=== PATIENT | male | born 1945 | race Two or more races ===

== ENCOUNTER → 2016-11-26 | Outpatient (CLI) | payer OTHER, MEDICAID ==
[~2016-11-26] MED LIST: ASPI81TA27 PO; CLON0.3T PO; CLOP75TA28 PO; FEXO24TA9 PO; FLUT110A IN; FLUT250M2 INH; FOLI800T14 OR; GABA300C8 OR; INSLANTI SC; LACT10SO PO; MAGN400T5 PO; MESA800T OR; METF500T OR; METH25IN14 IJ; MONT10TA23 OR; NOR10T PO; PANT1INJ3 OR; POTA-167 OR; ROSU10TA16 PO; TRAM-297 OR; TRI05TP INJ
[2016-11-26 12:09] LABS: INR 0.97 (0.9-1.15); Partial Thromboplastin Time 24.9 sec (22.64-33.71)
[2016-11-26 12:10] LABS: Basophils # (auto) 0.2 uL; Basophils % (auto) 2.2 % (0.0-2.0); Eosinophils # (auto) 0 uL; Eosinophils % (auto) 0.2 % (0.0-7.0); Hematocrit 40.3 % (41.0-53.0); Hemoglobin 12.6 g/dL (13.5-17.5); Lymphocytes % (auto) 19.7 % (10.0-50.0); Mean Corpuscular Hemoglobin 27.5 pg (28.0-32.0); Mean Corpuscular Hgb Conc. 31.1 g/dL (32.0-36.0); Mean Corpuscular Volume 88.2 fL (80.0-100.0); Mean Platelet Volume 6.3 fL (7.4-10.4); Monocytes # (auto) 0.8 uL; Monocytes % (auto) 7.6 % (0.0-12.0); Neutrophils # (auto) 7.3 uL; Neutrophils % (auto) 70.3 % (37.0-80.0); Platelet Count (auto) 385 10^3/uL (140-450); Red Cell Distribution Width 14.5 % (11.6-16.0); White Blood Cell 10.3 10^3/uL (4.4-10.8)
[2016-11-26 12:14] LABS: Albumin 3.8 g/dL (3.4-5.0); BUN/Creatinine Ratio 13.2; Calcium 8.1 mg/dL (8.5-10.1); Potassium 4.1 mmol/L (3.5-5.1)
[2016-11-26 12:16] LABS: Bilirubin, Total 0.5 mg/dL (0.2-1.0); Total Protein 6.5 g/dL (6.4-8.2)
[2016-11-26 13:08] LABS: Urine Bilirubin Negative (Negative); Urine Blood Negative /uL (Negative); Urine Color Colorless (Yellow); Urine Glucose Normal (Normal); Urine Ketone Negative (Negative); Urine Nitrite Negative (Negative); Urine RBC <1 /hpf (0 - 3); Urine Urobilinogen Normal (Negative); Urine pH 6.5 (5.0-8.0)
== END | disposition home or self-care (01) ==
LOC: LAB 11:18
PROVIDERS: ATTEND Internal Medicine Gastroenterology
DX: Z01.812 Encounter for preprocedural laboratory examination (principal)
CPT/HCPCS: 36415; 80053; 81001; 85025; 85610; 85730

== ENCOUNTER → 2016-11-30 | Day surgery (SDC) | payer OTHER, MEDICAID ==
[~2016-11-30] MED LIST changes: +ACCU-CHEK COMFORT CURVE STRIP VI ONE; +DEXAMETHASONE SOD PHOS 10MG/1ML VIAL INJ ONE; +HYDROmorphone HCL 2 MG/ML VL IV PRN; +MIDAZOLAM HCL 1MG/1ML-2 ML VIAL IV PRN; +MIDAZOLAM HCL 1MG/1ML-2 ML VIAL ONE; +MORPHINE SULF INJ 2 MG/ML SYRINGE 1ML IV PRN; +ONDANSETRON HCL 4 MG/2 ML VIAL IV ONE; +PROPOFOL 10 MG/ML 20 ML IV ONE; +ePHEDrine SULFATE 50 MG/ML AMP IV PRN; +fentaNYL CITRATE 100 MCG/2 ML VL ONE; +hydrALAZINE HCL 20 MG/ML VL IV PRN
[2016-11-30 10:50] VITALS: BP 133/67
== END | disposition home or self-care (01) ==
LOC: GI 07:52
PROVIDERS: ATTEND Internal Medicine Gastroenterology
DX: Z12.11 Encounter for screening for malignant neoplasm of colon (principal); K64.8 Other hemorrhoids; K51.90 Ulcerative colitis, unspecified, without complications; I20.9 Angina pectoris, unspecified; I50.9 Heart failure, unspecified; J44.9 Chronic obstructive pulmonary disease, unspecified; J45.909 Unspecified asthma, uncomplicated; E11.9 Type 2 diabetes mellitus without complications; F17.200 Nicotine dependence, unspecified, uncomplicated
CPT/HCPCS: 45380; 82962; J1100; J2250; J2704

== ENCOUNTER → 2016-12-02 | Outpatient (CLI) | payer OTHER, MEDICAID ==
[~2016-12-02] MED LIST changes: -ACCU-CHEK COMFORT CURVE STRIP VI ONE; -DEXAMETHASONE SOD PHOS 10MG/1ML VIAL INJ ONE; -HYDROmorphone HCL 2 MG/ML VL IV PRN; -MIDAZOLAM HCL 1MG/1ML-2 ML VIAL IV PRN; -MIDAZOLAM HCL 1MG/1ML-2 ML VIAL ONE; -MORPHINE SULF INJ 2 MG/ML SYRINGE 1ML IV PRN; -ONDANSETRON HCL 4 MG/2 ML VIAL IV ONE; -PROPOFOL 10 MG/ML 20 ML IV ONE; -ePHEDrine SULFATE 50 MG/ML AMP IV PRN; -fentaNYL CITRATE 100 MCG/2 ML VL ONE; -hydrALAZINE HCL 20 MG/ML VL IV PRN
[2016-12-02 11:46] LABS: Basophils # (auto) 0 uL; Basophils % (auto) 0.4 % (0.0-2.0); Eosinophils # (auto) 0 uL; Eosinophils % (auto) 0.3 % (0.0-7.0); Hematocrit 37.8 % (41.0-53.0); Hemoglobin 11.6 g/dL (13.5-17.5); Lymphocytes # (auto) 2.3 uL; Lymphocytes % (auto) 24.1 % (10.0-50.0); Mean Corpuscular Hemoglobin 27.2 pg (28.0-32.0); Mean Corpuscular Hgb Conc. 30.8 g/dL (32.0-36.0); Mean Corpuscular Volume 88.3 fL (80.0-100.0); Mean Platelet Volume 5.9 fL (7.4-10.4); Monocytes # (auto) 0.8 uL; Monocytes % (auto) 8.3 % (0.0-12.0); Neutrophils # (auto) 6.5 uL; Neutrophils % (auto) 66.9 % (37.0-80.0); Platelet Count (auto) 366 10^3/uL (140-450); Red Cell Distribution Width 15.2 % (11.6-16.0); White Blood Cell 9.7 10^3/uL (4.4-10.8)
== END | disposition home or self-care (01) ==
LOC: LAB 10:25
PROVIDERS: ATTEND Internal Medicine Gastroenterology
DX: R53.1 Weakness (principal); K62.5 Hemorrhage of anus and rectum
CPT/HCPCS: 36415; 85025

== ENCOUNTER → 2017-01-11 | Outpatient (CLI) | payer OTHER, MEDICAID ==
[2017-01-11 11:34] LABS: Basophils # (auto) 0.1 uL; Basophils % (auto) 0.7 % (0.0-2.0); Eosinophils # (auto) 0 uL; Eosinophils % (auto) 0.4 % (0.0-7.0); Hematocrit 35.3 % (41.0-53.0); Hemoglobin 11.3 g/dL (13.5-17.5); Lymphocytes # (auto) 2.1 uL; Lymphocytes % (auto) 25.1 % (10.0-50.0); Mean Corpuscular Hgb Conc. 32.1 g/dL (32.0-36.0); Mean Corpuscular Volume 87.4 fL (80.0-100.0); Mean Platelet Volume 5.9 fL (7.4-10.4); Monocytes # (auto) 0.7 uL; Monocytes % (auto) 8.6 % (0.0-12.0); Neutrophils # (auto) 5.4 uL; Neutrophils % (auto) 65.2 % (37.0-80.0); Platelet Count (auto) 415 10^3/uL (140-450); Red Cell Distribution Width 16.6 % (11.6-16.0); White Blood Cell 8.2 10^3/uL (4.4-10.8)
[2017-01-11 11:56] LABS: Vitamin B12 865 pg/mL (211-911)
[2017-01-11 12:32] LABS: Albumin 3.9 g/dL (3.4-5.0); BUN/Creatinine Ratio 16.1; Bilirubin, Total 0.4 mg/dL (0.2-1.0); Calcium 9.1 mg/dL (8.5-10.1); Potassium 4.5 mmol/L (3.5-5.1); Total Protein 6.6 g/dL (6.4-8.2)
[2017-01-11 13:06] LABS: Temperature: 21.9 C (20.0-25.0)
== END | disposition home or self-care (01) ==
LOC: LAB 10:59
PROVIDERS: ATTEND Internal Medicine
DX: D64.9 Anemia, unspecified (principal); M06.9 Rheumatoid arthritis, unspecified; M25.50 Pain in unspecified joint; I10 Essential (primary) hypertension; Z79.899 Other long term (current) drug therapy
CPT/HCPCS: 36415; 80053; 82607; 82728; 82746; 83540; 83550; 85025; 85652; 86141

== ENCOUNTER → 2017-03-22 | Outpatient (CLI) | payer OTHER, MEDICAID ==
[2017-03-22 10:04] LABS: Basophils # (auto) 0.1 uL; Basophils % (auto) 1.1 % (0.0-2.0); DEFINITIVE VIEW TRANSMISSION; Eosinophils # (auto) 0 uL; Eosinophils % (auto) 0.3 % (0.0-7.0); Hematocrit 40.4 % (41.0-53.0); Hemoglobin 13.2 g/dL (13.5-17.5); Lymphocytes % (auto) 24.3 % (10.0-50.0); Mean Corpuscular Hemoglobin 29.3 pg (28.0-32.0); Mean Corpuscular Hgb Conc. 32.7 g/dL (32.0-36.0); Mean Corpuscular Volume 89.6 fL (80.0-100.0); Mean Platelet Volume 5.9 fL (7.4-10.4); Monocytes # (auto) 0.7 uL; Monocytes % (auto) 8.3 % (0.0-12.0); Neutrophils # (auto) 5.4 uL; Platelet Count (auto) 406 10^3/uL (140-450); White Blood Cell 8.2 10^3/uL (4.4-10.8)
[2017-03-22 10:27] LABS: Potassium 4.2 mmol/L (3.5-5.1)
[2017-03-22 10:28] LABS: Albumin 3.9 g/dL (3.4-5.0); BUN/Creatinine Ratio 14.3; Bilirubin, Total 0.3 mg/dL (0.2-1.0); Calcium 8.8 mg/dL (8.5-10.1); Total Protein 6.9 g/dL (6.4-8.2)
== END | disposition home or self-care (01) ==
LOC: LAB 09:27
DX: Z79.899 Other long term (current) drug therapy (principal); M06.9 Rheumatoid arthritis, unspecified; M25.50 Pain in unspecified joint; D64.9 Anemia, unspecified; I10 Essential (primary) hypertension
CPT/HCPCS: 36415; 80053; 82728; 83540; 85025; 85652; 86141

== ENCOUNTER 2017-05-01 19:29 | Emergency (ER) | payer OTHER, MEDICAID ==
[~2017-05-01] VITALS: Ht 157.5 cm; Wt 57.2 kg
[~2017-05-01 19:29] MED LIST changes: +ASACOL HD800 MG OR; +GABA-497 OR; -GABA300C8 OR; -LACT10SO PO; +LACT10SO3 PO; -MESA800T OR
[2017-05-01 20:42] LABS: Basophils # (auto) 0 uL; Basophils % (auto) 0.7 % (0.0-2.0); CONDITION Y; DEFINITIVE SEE PRINTOUT; Eosinophils # (auto) 0 uL; Eosinophils % (auto) 0.4 % (0.0-7.0); Hematocrit 38.5 % (41.0-53.0); Hemoglobin 12.6 g/dL (13.5-17.5); Lymphocytes # (auto) 1.8 uL; Lymphocytes % (auto) 25.7 % (10.0-50.0); Mean Corpuscular Hemoglobin 31.1 pg (28.0-32.0); Mean Corpuscular Hgb Conc. 32.8 g/dL (32.0-36.0); Mean Platelet Volume 5.7 fL (7.4-10.4); Monocytes # (auto) 0.6 uL; Monocytes % (auto) 9.1 % (0.0-12.0); Neutrophils # (auto) 4.6 uL; Neutrophils % (auto) 64.1 % (37.0-80.0); Platelet Count (auto) 366 10^3/uL (140-450); Red Cell Distribution Width 19.9 % (11.6-16.0); White Blood Cell 7.1 10^3/uL (4.4-10.8)
[2017-05-01 21:08] LABS: INR 0.89 (0.9-1.15); Partial Thromboplastin Time 27.1 sec (22.64-33.71); Prothrombin Time 9.7 sec (9.37-12.3)
[2017-05-01 21:20] LABS: Albumin 3.7 g/dL (3.4-5.0); BUN/Creatinine Ratio 15.3; Calcium 8.5 mg/dL (8.5-10.1); Potassium 4.3 mmol/L (3.5-5.1)
[2017-05-01 21:23] LABS: Bilirubin, Total 0.3 mg/dL (0.2-1.0); Total Protein 6.3 g/dL (6.4-8.2)
[2017-05-01 21:51] LABS: Anisocytosis Slight; Burr Cells FEW; Platelet Estimate Adequate
[2017-05-01 21:52] LABS: Ovalocytes FEW
[2017-05-01 23:02] LABS: B-Type Natriuretic Peptide 39.27 pg/mL (0-100)
[2017-05-02] MEDS ORDERED: HYDROcodone-ACET 5/325MG TAB PO ONE (00:15)
[2017-05-02 01:00] VITALS: BP 132/68
== END 2017-05-02 01:15 ==
LOC: ER 19:31
DX: R58 Hemorrhage, not elsewhere classified (principal); M79.604 Pain in right leg; M79.672 Pain in left foot; E11.40 Type 2 diabetes mellitus with diabetic neuropathy, unspecified; I10 Essential (primary) hypertension; E78.00 Pure hypercholesterolemia, unspecified; I25.10 Atherosclerotic heart disease of native coronary artery without angina pectoris; J44.9 Chronic obstructive pulmonary disease, unspecified; K21.9 Gastro-esophageal reflux disease without esophagitis; K51.90 Ulcerative colitis, unspecified, without complications; M06.9 Rheumatoid arthritis, unspecified; I25.2 Old myocardial infarction; F41.9 Anxiety disorder, unspecified; Z86.718 Personal history of other venous thrombosis and embolism; Z86.73 Personal history of transient ischemic attack (TIA), and cerebral infarction without residual deficits; Z88.0 Allergy status to penicillin; Z88.1 Allergy status to other antibiotic agents; Z88.6 Allergy status to analgesic agent; Z88.8 Allergy status to other drugs, medicaments and biological substances
CPT/HCPCS: 36415; 80053; 82962; 83880; 85025; 85610; 85730; 93005; 93971

== ENCOUNTER → 2017-05-03 | Outpatient (CLI) | payer OTHER, MEDICAID | END | disposition home or self-care (01) | LOC: LAB 09:32 | PROVIDERS: ATTEND Internal Medicine | DX: R63.4 Abnormal weight loss (principal) | CPT/HCPCS: 36415; 82565; 84520 ==

== ENCOUNTER 2017-05-07 13:34 | Emergency (ER) | payer OTHER, MEDICAID ==
[~2017-05-07] VITALS: Ht 157.5 cm; Wt 56.2 kg
[2017-05-07 14:22] LABS: Basophils # (auto) 0 uL; Basophils % (auto) 0.5 % (0.0-2.0); CONDITION Y; DEFINITIVE SEE PRINTOUT; Eosinophils # (auto) 0 uL; Eosinophils % (auto) 0.4 % (0.0-7.0); Hematocrit 39.5 % (41.0-53.0); Lymphocytes # (auto) 1.8 uL; Lymphocytes % (auto) 19.7 % (10.0-50.0); Mean Corpuscular Hemoglobin 31.4 pg (28.0-32.0); Mean Corpuscular Hgb Conc. 32.9 g/dL (32.0-36.0); Mean Corpuscular Volume 95.4 fL (80.0-100.0); Mean Platelet Volume 6.1 fL (7.4-10.4); Monocytes # (auto) 0.7 uL; Neutrophils # (auto) 6.7 uL; Neutrophils % (auto) 71.4 % (37.0-80.0); Platelet Count (auto) 377 10^3/uL (140-450); Red Cell Distribution Width 19.6 % (11.6-16.0); White Blood Cell 9.4 10^3/uL (4.4-10.8)
[2017-05-07 16:20] LABS: Potassium 4.1 mmol/L (3.5-5.1)
[2017-05-07 16:21] LABS: Albumin 3.6 g/dL (3.4-5.0); BUN/Creatinine Ratio 14.8; Bilirubin, Total 0.4 mg/dL (0.2-1.0); Calcium 8.5 mg/dL (8.5-10.1); Total Protein 6.2 g/dL (6.4-8.2)
[2017-05-07] MEDS ORDERED: ONDANSETRON HCL 4 MG/2 ML VIAL IM ONE (18:15)
[2017-05-07] MEDS ORDERED: HYDROmorphone HCL 2 MG/ML VL IM ONE (18:15)
[2017-05-07 20:00] VITALS: BP 152/78
== END 2017-05-07 20:11 | disposition home or self-care (01) ==
LOC: ER 13:34
DX: S90.31XA Contusion of right foot, initial encounter (principal); M06.9 Rheumatoid arthritis, unspecified; E11.42 Type 2 diabetes mellitus with diabetic polyneuropathy; M19.90 Unspecified osteoarthritis, unspecified site; J44.9 Chronic obstructive pulmonary disease, unspecified; K21.9 Gastro-esophageal reflux disease without esophagitis; E78.5 Hyperlipidemia, unspecified; I10 Essential (primary) hypertension; E78.00 Pure hypercholesterolemia, unspecified; F17.210 Nicotine dependence, cigarettes, uncomplicated; I25.2 Old myocardial infarction; Z98.61 Coronary angioplasty status; Z90.49 Acquired absence of other specified parts of digestive tract; Z88.8 Allergy status to other drugs, medicaments and biological substances; Z88.1 Allergy status to other antibiotic agents; Z88.6 Allergy status to analgesic agent; Z79.4 Long term (current) use of insulin; X58.XXXA Exposure to other specified factors, initial encounter; Y93.89 Activity, other specified; Y92.89 Other specified places as the place of occurrence of the external cause; Y99.8 Other external cause status
CPT/HCPCS: 36415; 73590; 73610; 73630; 80053; 82962; 84550; 85025; 85379; 93971; 96372; 99285; J1170; J2405

== ENCOUNTER → 2017-05-17 | Outpatient (CLI) | payer OTHER, MEDICAID | END | disposition home or self-care (01) | LOC: XY 09:57 | PROVIDERS: ATTEND Internal Medicine | DX: M79.604 Pain in right leg (principal); M79.601 Pain in right arm; I10 Essential (primary) hypertension; E11.9 Type 2 diabetes mellitus without complications | CPT/HCPCS: 93926 ==

== ENCOUNTER → 2017-07-06 | Outpatient (CLI) | payer OTHER ==
[2017-07-06 11:33] LABS: Basophils # (auto) 0.1 uL; Basophils % (auto) 0.7 % (0.0-2.0); CONDITION Y; Eosinophils # (auto) 0.1 uL; Eosinophils % (auto) 0.6 % (0.0-7.0); Hematocrit 39.8 % (41.0-53.0); Hemoglobin 13.3 g/dL (13.5-17.5); Lymphocytes # (auto) 1.9 uL; Lymphocytes % (auto) 22.3 % (10.0-50.0); Mean Corpuscular Hemoglobin 33.5 pg (28.0-32.0); Mean Corpuscular Hgb Conc. 33.4 g/dL (32.0-36.0); Mean Corpuscular Volume 100.3 fL (80.0-100.0); Mean Platelet Volume 5.6 fL (7.4-10.4); Monocytes # (auto) 0.8 uL; Monocytes % (auto) 9.1 % (0.0-12.0); Neutrophils # (auto) 5.9 uL; Neutrophils % (auto) 67.3 % (37.0-80.0); Platelet Count (auto) 364 10^3/uL (140-450); Red Cell Distribution Width 15.6 % (11.6-16.0); White Blood Cell 8.7 10^3/uL (4.4-10.8)
[2017-07-06 11:55] LABS: Albumin 3.8 g/dL (3.4-5.0); BUN/Creatinine Ratio 17.2; Bilirubin, Total 0.4 mg/dL (0.2-1.0); Calcium 9.1 mg/dL (8.5-10.1); Potassium 4.6 mmol/L (3.5-5.1); Total Protein 6.8 g/dL (6.4-8.2)
== END | disposition home or self-care (01) ==
LOC: LAB 11:06
DX: I10 Essential (primary) hypertension (principal); D64.9 Anemia, unspecified; M25.50 Pain in unspecified joint; E03.9 Hypothyroidism, unspecified; E11.9 Type 2 diabetes mellitus without complications; Z79.899 Other long term (current) drug therapy; J44.9 Chronic obstructive pulmonary disease, unspecified
CPT/HCPCS: 36415; 80053; 84443; 85025; 85652; 86141

== ENCOUNTER 2017-09-06 12:32 | Emergency (ER) | payer OTHER, MEDICAID ==
[~2017-09-06] VITALS: Ht 157.5 cm; Wt 55.3 kg
[~2017-09-06 12:32] MED LIST changes: -ASACOL HD800 MG OR; +MESA800T OR; +SITA50TA PO
[2017-09-06 13:31] LABS: Basophils # (auto) 0.1 uL; Basophils % (auto) 1.2 % (0.0-2.0); Eosinophils # (auto) 0.1 uL; Eosinophils % (auto) 1.3 % (0.0-7.0); Hematocrit 39.4 % (41.0-53.0); Hemoglobin 13.2 g/dL (13.5-17.5); Lymphocytes # (auto) 1.3 uL; Lymphocytes % (auto) 15.7 % (10.0-50.0); Mean Corpuscular Hemoglobin 33.2 pg (28.0-32.0); Mean Corpuscular Hgb Conc. 33.4 g/dL (32.0-36.0); Mean Corpuscular Volume 99.4 fL (80.0-100.0); Monocytes # (auto) 0.9 uL; Neutrophils # (auto) 5.9 uL; Neutrophils % (auto) 70.8 % (37.0-80.0); Platelet Count (auto) 271 10^3/uL (140-450); Red Blood Cells 3.96 10^6/uL (4.5-5.90); Red Cell Distribution Width 13.7 % (11.8-14.3); White Blood Cell 8.4 10^3/uL (4.4-10.8)
[2017-09-06 13:40] LABS: Amylase 24 U/L (25-115); Lipase 110 U/L (73-393)
[2017-09-06 13:44] LABS: Albumin 3.6 g/dL (3.4-5.0); BUN/Creatinine Ratio 16.7; Bilirubin, Total 0.4 mg/dL (0.2-1.0); Calcium 8.7 mg/dL (8.5-10.1); Potassium 4.2 mmol/L (3.5-5.1); Total Protein 6.8 g/dL (6.4-8.2)
[2017-09-06] MEDS ORDERED: traMADol HCL 50 MG TAB PO ONE (14:00)
[2017-09-06 15:32] VITALS: BP 141/69
== END 2017-09-06 16:03 | disposition home or self-care (01) ==
LOC: ER 12:32
DX: K59.00 Constipation, unspecified (principal); F17.210 Nicotine dependence, cigarettes, uncomplicated; M19.90 Unspecified osteoarthritis, unspecified site; J44.9 Chronic obstructive pulmonary disease, unspecified; K21.9 Gastro-esophageal reflux disease without esophagitis; E78.5 Hyperlipidemia, unspecified; I10 Essential (primary) hypertension; I25.2 Old myocardial infarction; E11.40 Type 2 diabetes mellitus with diabetic neuropathy, unspecified; Z90.89 Acquired absence of other organs; Z98.61 Coronary angioplasty status; Z79.899 Other long term (current) drug therapy; Z88.8 Allergy status to other drugs, medicaments and biological substances; Z88.6 Allergy status to analgesic agent; Z88.1 Allergy status to other antibiotic agents
CPT/HCPCS: 36415; 74176; 80053; 82150; 83690; 85025; 93005

== ENCOUNTER → 2017-11-04 | Outpatient (CLI) | payer OTHER, MEDICAID ==
[~2017-11-04] VITALS: Ht 157.5 cm; Wt 53.5 kg
[~2017-11-04] MED LIST changes: +FURO40TA PO; -GABA-497 OR; +GABA300C10 OR; +LEVO750T64 PO
[2017-11-04 11:54] LABS: Basophils # (auto) 0.1 uL; Basophils % (auto) 0.6 % (0.0-2.0); Eosinophils # (auto) 0 uL; Eosinophils % (auto) 0.2 % (0.0-7.0); Hematocrit 38.9 % (41.0-53.0); Hemoglobin 12.8 g/dL (13.5-17.5); Lymphocytes # (auto) 1.4 uL; Lymphocytes % (auto) 15.1 % (10.0-50.0); Mean Corpuscular Volume 97.2 fL (80.0-100.0); Monocytes # (auto) 0.8 uL; Monocytes % (auto) 9.2 % (0.0-12.0); Neutrophils # (auto) 6.9 uL; Neutrophils % (auto) 74.9 % (37.0-80.0); Platelet Count (auto) 350 10^3/uL (140-450); Red Cell Distribution Width 14.1 % (11.8-14.3); White Blood Cell 9.2 10^3/uL (4.4-10.8)
[2017-11-04 11:57] LABS: Urine Blood Negative /uL (Negative); Urine Specific Gravity 1.003 (1.001-1.035)
[2017-11-04 12:07] LABS: INR 0.88 (0.9-1.15); Partial Thromboplastin Time 26.5 sec (22.64-33.71); Prothrombin Time 9.6 sec (9.37-12.3)
[2017-11-04 12:24] LABS: Albumin 3.9 g/dL (3.4-5.0); BUN/Creatinine Ratio 19.4; Bilirubin, Total 0.4 mg/dL (0.2-1.0); Calcium 8.7 mg/dL (8.5-10.1); Potassium 4.3 mmol/L (3.5-5.1); Total Protein 6.9 g/dL (6.4-8.2)
== END | disposition home or self-care (01) ==
LOC: LAB 08:00 → EDSTATUS 11-08 09:00
PROVIDERS: ATTEND Internal Medicine Gastroenterology
DX: K51.90 Ulcerative colitis, unspecified, without complications (principal); R63.4 Abnormal weight loss
CPT/HCPCS: 36415; 80053; 81003; 85025; 85610; 85730

== ENCOUNTER 2017-11-07 14:07 | Inpatient (IN) | payer OTHER, MEDICAID ==
[~2017-11-07] VITALS: Ht 157.5 cm; Wt 51.8 kg
[~2017-11-07 14:07] MED LIST changes: -FURO40TA PO; -INSLANTI SC; -LEVO750T64 PO
[2017-11-07 14:41] LABS: Basophils # (auto) 0 uL; Basophils % (auto) 0.3 % (0.0-2.0); Eosinophils # (auto) 0 uL; Eosinophils % (auto) 0.3 % (0.0-7.0); Hematocrit 34.7 % (41.0-53.0); Hemoglobin 11.6 g/dL (13.5-17.5); Lymphocytes # (auto) 0.8 uL; Lymphocytes % (auto) 7.3 % (10.0-50.0); Mean Corpuscular Hemoglobin 32.5 pg (28.0-32.0); Mean Corpuscular Hgb Conc. 33.5 g/dL (32.0-36.0); Mean Corpuscular Volume 97.1 fL (80.0-100.0); Monocytes # (auto) 0.9 uL; Monocytes % (auto) 7.7 % (0.0-12.0); Neutrophils # (auto) 9.8 uL; Neutrophils % (auto) 84.4 % (37.0-80.0); Platelet Count (auto) 280 10^3/uL (140-450); Red Blood Cells 3.57 10^6/uL (4.5-5.90); Red Cell Distribution Width 14.6 % (11.8-14.3); White Blood Cell 11.6 10^3/uL (4.4-10.8)
[2017-11-07 15:01] LABS: Alanine Aminotransferase 45 U/L (16-61); Alkaline Phosphatase 116 U/L (45-117); Anion Gap 8 (5-15); Aspartate Aminotransferase 26 U/L (15-37); BUN/Creatinine Ratio 15.8; Bilirubin, Total 0.6 mg/dL (0.2-1.0); Blood Urea Nitrogen 12 mg/dL (7-18); Calcium 8.3 mg/dL (8.5-10.1); Carbon Dioxide 27 mmol/L (21-32); Chloride 96 mmol/L (98-107); GFR African American 129 mL/min; GFR Non-African American 107 mL/min; Glucose 163 mg/dL (74-106); Magnesium 2.5 mg/dL (1.6-2.6); Potassium 4.4 mmol/L (3.5-5.1); Sodium 131 mmol/L (136-145); Total Protein 6.6 g/dL (6.4-8.2)
[2017-11-07] MEDS ORDERED: SODIUM CHLORIDE 0.9% 500 ML IVB ONE (21:19)
[2017-11-07 22:54] LABS: Urine Bacteria NONE SEEN /hpf (None Seen); Urine Blood TRACE /uL (Negative); Urine Specific Gravity 1.006 (1.001-1.035); Urine WBC <1 /hpf (0 - 3)
[2017-11-08] MEDS ORDERED: LEVOFLOXACIN 500MG 100 ML IV ONE (00:15)
[2017-11-08] MEDS ORDERED: ACETAMINOPHEN 325 MG TAB PO PRN (01:00)
[2017-11-08] MEDS ORDERED: NITROGLYCERIN 0.4 MG SL TAB SL PRN (01:00)
[2017-11-08] MEDS ORDERED: TEMAZEPAM 15 MG CAP PO PRN (01:00)
[2017-11-08] MEDS ORDERED: DEXTROSE (50%) 50ML SYRG IV PRN ×2 (01:00→12:00)
[2017-11-08] MEDS ORDERED: cloNIDine HCL 0.1 MG TAB PO PRN (01:00)
[2017-11-08] MEDS ORDERED: DOCUSATE SOD 100 MG CAP PO PRN (01:00)
[2017-11-08] MEDS ORDERED: MORPHINE SULF INJ 2 MG/ML SYRINGE 1ML IV PRN (01:00)
[2017-11-08] MEDS ORDERED: HYDROcodone-ACET 5/325MG TAB PO PRN (01:00)
[2017-11-08] MEDS ORDERED: ONDANSETRON HCL 4 MG/2 ML VIAL IV PRN (01:00)
[2017-11-08] MEDS ORDERED: InsuLIN REG 1unit/0.01ml Soln (100units/ml) SC SCH (06:00)
[2017-11-08] MEDS: ACCU-CHEK COMFORT CURVE STRIP VI SCH ×4 (06:24→18:00)
[2017-11-08] MEDS: GABAPENTIN 300 MG CAP PO SCH ×3 (06:27→22:00)
[2017-11-08] MEDS: ENOXAPARIN SOD 40 MG/0.4 ML SYRINGE SC SCH (10:22)
[2017-11-08] MEDS: MESALAMINE 400mg Delayed Release Cap PO SCH ×2 (10:22→22:00)
[2017-11-08] MEDS: FOLIC ACID 1 MG TAB PO SCH (10:22)
[2017-11-08] MEDS: FAMOTIDINE 20 MG TAB PO SCH ×2 (10:22→21:59)
[2017-11-08] MEDS: CLOPIDOGREL BISULFATE 75 MG TAB PO SCH (10:22)
[2017-11-08] MEDS: MAGNESIUM OXIDE 400 MG TAB PO SCH (10:22)
[2017-11-08] MEDS ORDERED: cloNIDine HCL 0.1 MG TAB PO ONE (11:00)
[2017-11-08 12:14] LABS: Basophils # (auto) 0 uL; Basophils % (auto) 0.5 % (0.0-2.0); Eosinophils # (auto) 0 uL; Eosinophils % (auto) 0.3 % (0.0-7.0); Hematocrit 35.3 % (41.0-53.0); Hemoglobin 11.9 g/dL (13.5-17.5); Lymphocytes # (auto) 0.7 uL; Lymphocytes % (auto) 8.5 % (10.0-50.0); Mean Corpuscular Hemoglobin 32.3 pg (28.0-32.0); Mean Corpuscular Hgb Conc. 33.6 g/dL (32.0-36.0); Mean Corpuscular Volume 96.1 fL (80.0-100.0); Monocytes # (auto) 0.7 uL; Monocytes % (auto) 8.1 % (0.0-12.0); Neutrophils # (auto) 6.9 uL; Neutrophils % (auto) 82.6 % (37.0-80.0); Nucleated Red Blood Cells % 0.1 %; Platelet Count (auto) 312 10^3/uL (140-450); Red Blood Cells 3.67 10^6/uL (4.5-5.90); Red Cell Distribution Width 14.3 % (11.8-14.3); White Blood Cell 8.4 10^3/uL (4.4-10.8)
[2017-11-08] MEDS: InsuLIN REG 1unit/0.01ml Soln (100units/ml) SC SCH ×2 (12:32→18:00)
[2017-11-08 12:42] LABS: BUN/Creatinine Ratio 19.2; Calcium 8.5 mg/dL (8.5-10.1); Potassium 3.9 mmol/L (3.5-5.1)
[2017-11-08] MEDS ORDERED: LORazepam 2MG/ML-1ML VIAL IV PRN ×2 (16:45)
[2017-11-08 22:00] VITALS: BP 153/74
[2017-11-08] MEDS ORDERED: MONTELUKAST SODIUM 10 MG TAB PO SCH (22:00)
[2017-11-08] MEDS ORDERED: CRESTOR 10 MG PO SCH (22:00)
[2017-11-08] MEDS: cloNIDine HCL 0.1 MG TAB PO SCH (22:01)
[2017-11-09] MEDS: InsuLIN REG 1unit/0.01ml Soln (100units/ml) SC SCH ×3 (00:19→11:52)
[2017-11-09] MEDS: ACCU-CHEK COMFORT CURVE STRIP VI SCH ×3 (00:19→11:52)
[2017-11-09] MEDS ORDERED: LEVOFLOXACIN 750MG 150 ML IV SCH (01:00)
[2017-11-09 05:00] VITALS: BP 143/76
[2017-11-09] MEDS: GABAPENTIN 300 MG CAP PO SCH ×2 (05:38→14:18)
[2017-11-09 07:15] LABS: Basophils # (auto) 0 uL; Basophils % (auto) 0.5 % (0.0-2.0); Eosinophils # (auto) 0 uL; Eosinophils % (auto) 0.3 % (0.0-7.0); Hematocrit 40.4 % (41.0-53.0); Hemoglobin 13.4 g/dL (13.5-17.5); Lymphocytes % (auto) 13.3 % (10.0-50.0); Mean Corpuscular Hemoglobin 32.2 pg (28.0-32.0); Mean Corpuscular Hgb Conc. 33.3 g/dL (32.0-36.0); Mean Corpuscular Volume 96.8 fL (80.0-100.0); Monocytes # (auto) 0.8 uL; Monocytes % (auto) 9.8 % (0.0-12.0); Neutrophils % (auto) 76.1 % (37.0-80.0); Platelet Count (auto) 387 10^3/uL (140-450); Red Blood Cells 4.17 10^6/uL (4.5-5.90); Red Cell Distribution Width 14.4 % (11.8-14.3); White Blood Cell 7.9 10^3/uL (4.4-10.8)
[2017-11-09 07:32] LABS: Albumin 3.1 g/dL (3.4-5.0); BUN/Creatinine Ratio 16.1; Potassium 3.7 mmol/L (3.5-5.1)
[2017-11-09 07:35] LABS: Bilirubin, Total 0.4 mg/dL (0.2-1.0); Total Protein 7.2 g/dL (6.4-8.2)
[2017-11-09 08:03] VITALS: BP 138/70
[2017-11-09] MEDS: ENOXAPARIN SOD 40 MG/0.4 ML SYRINGE SC SCH (10:01)
[2017-11-09] MEDS: CLOPIDOGREL BISULFATE 75 MG TAB PO SCH (10:01)
[2017-11-09] MEDS: FOLIC ACID 1 MG TAB PO SCH (10:01)
[2017-11-09] MEDS: MAGNESIUM OXIDE 400 MG TAB PO SCH (10:02)
[2017-11-09] MEDS: FAMOTIDINE 20 MG TAB PO SCH (10:02)
[2017-11-09] MEDS: MESALAMINE 400mg Delayed Release Cap PO SCH (10:02)
[2017-11-09] MEDS: cloNIDine HCL 0.1 MG TAB PO SCH (10:03)
[2017-11-09] MEDS ORDERED: LEVO750T64 PO (11:35)
[2017-11-09 11:39] VITALS: BP 130/63
[2017-11-09 12:21] VITALS: BP 130/63
[2017-11-26] MEDS ORDERED: FURO40TA PO (13:20)
== END 2017-11-09 16:30 | disposition home or self-care (01) | DRG 190 ==
LOC: ER 14:07 → TELE 14:08 → TELE-WESTW 11-08 18:19 → TELE-EAST 11-08 19:10
PROVIDERS: ADMIT Nurse Practitioner; ATTEND Internal Medicine
DX: J44.0 Chronic obstructive pulmonary disease with (acute) lower respiratory infection (principal); J18.1 Lobar pneumonia, unspecified organism; E11.40 Type 2 diabetes mellitus with diabetic neuropathy, unspecified; K51.90 Ulcerative colitis, unspecified, without complications; E87.1 Hypo-osmolality and hyponatremia; R56.9 Unspecified convulsions; E78.5 Hyperlipidemia, unspecified; I10 Essential (primary) hypertension; K21.9 Gastro-esophageal reflux disease without esophagitis; I25.10 Atherosclerotic heart disease of native coronary artery without angina pectoris; F17.210 Nicotine dependence, cigarettes, uncomplicated; M06.9 Rheumatoid arthritis, unspecified; R55 Syncope and collapse; D72.829 Elevated white blood cell count, unspecified; F41.9 Anxiety disorder, unspecified; M19.90 Unspecified osteoarthritis, unspecified site; R63.4 Abnormal weight loss; I25.2 Old myocardial infarction; Z79.899 Other long term (current) drug therapy; Z80.0 Family history of malignant neoplasm of digestive organs; Z83.3 Family history of diabetes mellitus; Z86.73 Personal history of transient ischemic attack (TIA), and cerebral infarction without residual deficits; Z87.11 Personal history of peptic ulcer disease; Z68.20 Body mass index [BMI] 20.0-20.9, adult; Z88.1 Allergy status to other antibiotic agents; Z88.5 Allergy status to narcotic agent; Z88.0 Allergy status to penicillin; Z88.8 Allergy status to other drugs, medicaments and biological substances; Z90.49 Acquired absence of other specified parts of digestive tract
CPT/HCPCS: 36415; 70450; 71045; 71046; 80048; 80053; 81001; 82962; 83605; 83735; 84484; 85025; 87040; 93005; 93306; 93886; 95819; 96361; 96365; J1815; J1956

== ENCOUNTER → 2017-11-16 | Outpatient (CLI) | payer OTHER, MEDICAID ==
[~2017-11-16] MED LIST changes: +FURO40TA PO; +LEVO750T64 PO
[2017-11-16 10:31] LABS: Albumin 3.2 g/dL (3.4-5.0); BUN/Creatinine Ratio 19.7; Bilirubin, Total 0.2 mg/dL (0.2-1.0); Calcium 8.7 mg/dL (8.5-10.1); Potassium 4.3 mmol/L (3.5-5.1); Total Protein 6.5 g/dL (6.4-8.2)
[2017-11-16 11:18] LABS: Micro Albumin 5.48 mg/L (0-30.0)
== END | disposition home or self-care (01) ==
LOC: LAB 09:49
DX: E11.65 Type 2 diabetes mellitus with hyperglycemia (principal)
CPT/HCPCS: 36415; 80053; 80061; 82043; 82570; 83036

== ENCOUNTER 2017-11-29 07:25 | Day surgery (SDC) | payer OTHER, MEDICAID ==
[2017-11-26 13:40] LABS: Urine Blood Negative /uL (Negative); Urine Specific Gravity 1.004 (1.001-1.035)
[2017-11-26 13:42] LABS: Basophils # (auto) 0.2 uL; Basophils % (auto) 1.9 % (0.0-2.0); Eosinophils # (auto) 0.1 uL; Eosinophils % (auto) 0.8 % (0.0-7.0); Hematocrit 39.1 % (41.0-53.0); Hemoglobin 12.8 g/dL (13.5-17.5); Lymphocytes % (auto) 24.3 % (10.0-50.0); Mean Corpuscular Hemoglobin 31.7 pg (28.0-32.0); Mean Corpuscular Hgb Conc. 32.8 g/dL (32.0-36.0); Mean Corpuscular Volume 96.9 fL (80.0-100.0); Monocytes # (auto) 0.9 uL; Monocytes % (auto) 10.5 % (0.0-12.0); Neutrophils # (auto) 5.3 uL; Neutrophils % (auto) 62.5 % (37.0-80.0); Nucleated Red Blood Cells % 0.1 %; Platelet Count (auto) 408 10^3/uL (140-450); Red Blood Cells 4.04 10^6/uL (4.5-5.90); Red Cell Distribution Width 14.9 % (11.8-14.3); White Blood Cell 8.4 10^3/uL (4.4-10.8)
[2017-11-26 13:56] LABS: INR 0.91 (0.9-1.15); Prothrombin Time 9.9 sec (9.37-12.3)
[2017-11-26 14:12] LABS: Albumin 3.7 g/dL (3.4-5.0); BUN/Creatinine Ratio 15.2; Bilirubin, Total 0.4 mg/dL (0.2-1.0); Calcium 8.4 mg/dL (8.5-10.1); Total Protein 6.8 g/dL (6.4-8.2)
[~2017-11-29] VITALS: Ht 157.5 cm; Wt 48.1 kg
[~2017-11-29 07:25] MED LIST changes: -LEVO750T64 PO
[2017-11-29] MEDS ORDERED: DEXAMETHASONE SOD PHOS 10MG/1ML VIAL INJ IV ONE (07:26)
[2017-11-29] MEDS ORDERED: BENZOCAINE (DENTAL) 20 % SPRAY 60ML MT ONE (10:10)
[2017-11-29] MEDS ORDERED: MORPHINE SULF INJ 2 MG/ML SYRINGE 1ML IV PRN (10:15)
[2017-11-29] MEDS ORDERED: HYDROmorphone HCL 2 MG/ML VL IV PRN (10:15)
[2017-11-29] MEDS ORDERED: ePHEDrine SULFATE 50 MG/ML AMP IV PRN (10:15)
[2017-11-29] MEDS ORDERED: KETOROLAC TROMETH 30 MG/ML 1ML VIAL IV ONE (10:15)
[2017-11-29] MEDS ORDERED: MIDAZOLAM HCL 1MG/1ML-2 ML VIAL IV PRN (10:15)
[2017-11-29] MEDS ORDERED: LABETALOL HCL 5 MG/ML 4ML SYRINGE IV PRN (10:15)
[2017-11-29] MEDS ORDERED: ONDANSETRON HCL 4 MG/2 ML VIAL IV ONE (10:15)
[2017-11-29] MEDS ORDERED: ACCU-CHEK COMFORT CURVE STRIP VI ONE (10:15)
[2017-11-29] MEDS ORDERED: MIDAZOLAM HCL 1MG/1ML-2 ML VIAL ONE (10:27)
[2017-11-29] MEDS ORDERED: fentaNYL CITRATE 100 MCG/2 ML VL ONE (10:27)
[2017-11-29] MEDS ORDERED: MEPERIDINE HCL (50 MG/ML) 1 ML VIAL ONE (10:27)
[2017-11-29] MEDS ORDERED: PROPOFOL 10 MG/ML 20 ML IV ONE (10:50)
== END 2017-11-29 11:40 | disposition home or self-care (01) ==
LOC: SUR 07:25
PROVIDERS: ATTEND Internal Medicine Gastroenterology
DX: K64.8 Other hemorrhoids (principal); K51.90 Ulcerative colitis, unspecified, without complications; K29.50 Unspecified chronic gastritis without bleeding; I20.9 Angina pectoris, unspecified; I50.9 Heart failure, unspecified; J43.9 Emphysema, unspecified; J45.909 Unspecified asthma, uncomplicated; M19.90 Unspecified osteoarthritis, unspecified site; M06.9 Rheumatoid arthritis, unspecified; F17.210 Nicotine dependence, cigarettes, uncomplicated; Z90.49 Acquired absence of other specified parts of digestive tract; Z88.4 Allergy status to anesthetic agent; Z88.8 Allergy status to other drugs, medicaments and biological substances; Z88.0 Allergy status to penicillin; Z88.6 Allergy status to analgesic agent; Z88.5 Allergy status to narcotic agent
CPT/HCPCS: 36415; 43239; 43248; 45380; 80053; 81003; 82962; 85025; 85610; 88305; 88342; J1100; J2175; J2250; J2704; J3010; J7030

== ENCOUNTER 2018-01-12 11:07 | Emergency (ER) | payer OTHER, MEDICAID ==
[~2018-01-12] VITALS: Ht 157.5 cm; Wt 53.5 kg
[2018-01-12 11:31] VITALS: BP 156/79
[2018-01-12 12:20] LABS: Basophils # (auto) 0.1 uL; Basophils % (auto) 1.2 % (0.0-2.0); Eosinophils # (auto) 0.1 uL; Eosinophils % (auto) 0.8 % (0.0-7.0); Hematocrit 36.6 % (41.0-53.0); Hemoglobin 12.4 g/dL (13.5-17.5); Lymphocytes # (auto) 1.6 uL; Lymphocytes % (auto) 21.2 % (10.0-50.0); Mean Corpuscular Hemoglobin 31.7 pg (28.0-32.0); Mean Corpuscular Hgb Conc. 33.9 g/dL (32.0-36.0); Mean Corpuscular Volume 93.3 fL (80.0-100.0); Monocytes # (auto) 0.6 uL; Monocytes % (auto) 7.9 % (0.0-12.0); Neutrophils # (auto) 5.4 uL; Neutrophils % (auto) 68.9 % (37.0-80.0); Platelet Count (auto) 342 10^3/uL (140-450); Red Blood Cells 3.92 10^6/uL (4.5-5.90); Red Cell Distribution Width 14.8 % (11.8-14.3); White Blood Cell 7.8 10^3/uL (4.4-10.8)
[2018-01-12 12:56] LABS: Albumin 3.9 g/dL (3.4-5.0); BUN/Creatinine Ratio 18.3; Bilirubin, Total 0.4 mg/dL (0.2-1.0); Calcium 8.8 mg/dL (8.5-10.1); Potassium 4.4 mmol/L (3.5-5.1)
[2018-01-12] MEDS ORDERED: SODIUM CHLORIDE 0.9% 1,000 ML IV ONE (16:49)
[2018-01-12] MEDS ORDERED: DEXAMETHASONE SOD PHOS 4 MG/1ML SDV INJ IV ONE (17:00)
[2018-01-12] MEDS ORDERED: PROMETHAZINE HCL 25 MG/ML 1ML IV ONE (17:00)
[2018-01-12] MEDS ORDERED: KETOROLAC TROMETH 30 MG/ML 1ML VIAL IV ONE (17:00)
== END 2018-01-12 19:03 | disposition home or self-care (01) ==
LOC: ER 11:07
DX: E11.65 Type 2 diabetes mellitus with hyperglycemia (principal); E11.40 Type 2 diabetes mellitus with diabetic neuropathy, unspecified; F17.210 Nicotine dependence, cigarettes, uncomplicated; M06.9 Rheumatoid arthritis, unspecified; Z88.8 Allergy status to other drugs, medicaments and biological substances; M19.90 Unspecified osteoarthritis, unspecified site; J44.9 Chronic obstructive pulmonary disease, unspecified; K21.9 Gastro-esophageal reflux disease without esophagitis; I25.2 Old myocardial infarction; E78.5 Hyperlipidemia, unspecified; I10 Essential (primary) hypertension; Z87.11 Personal history of peptic ulcer disease; Z79.82 Long term (current) use of aspirin; Z88.1 Allergy status to other antibiotic agents; Z88.0 Allergy status to penicillin; Z86.73 Personal history of transient ischemic attack (TIA), and cerebral infarction without residual deficits
CPT/HCPCS: 36415; 71046; 80053; 83880; 85025; 93005; 96361; 96374; 96375; 99285; J1100; J1885; J2550; J7030

== ENCOUNTER → 2018-01-18 | Outpatient (CLI) | payer OTHER, MEDICAID ==
[2018-01-18 15:09] LABS: Basophils # (auto) 0.1 uL; Basophils % (auto) 1.2 % (0.0-2.0); Eosinophils # (auto) 0.1 uL; Eosinophils % (auto) 1.4 % (0.0-7.0); Hematocrit 37.2 % (41.0-53.0); Hemoglobin 12.4 g/dL (13.5-17.5); Lymphocytes # (auto) 2.1 uL; Lymphocytes % (auto) 27.9 % (10.0-50.0); Mean Corpuscular Hemoglobin 31.1 pg (28.0-32.0); Mean Corpuscular Hgb Conc. 33.3 g/dL (32.0-36.0); Mean Corpuscular Volume 93.5 fL (80.0-100.0); Monocytes # (auto) 0.8 uL; Monocytes % (auto) 10.1 % (0.0-12.0); Neutrophils # (auto) 4.4 uL; Neutrophils % (auto) 59.4 % (37.0-80.0); Platelet Count (auto) 396 10^3/uL (140-450); Red Blood Cells 3.98 10^6/uL (4.5-5.90); Red Cell Distribution Width 15.2 % (11.8-14.3); White Blood Cell 7.5 10^3/uL (4.4-10.8)
[2018-01-18 15:26] LABS: Albumin 3.7 g/dL (3.4-5.0); BUN/Creatinine Ratio 16.4; Bilirubin, Total 0.4 mg/dL (0.2-1.0); CRP High Sensitivity 0.06 mg/dL (< 0.3); Calcium 8.7 mg/dL (8.5-10.1); Potassium 4.3 mmol/L (3.5-5.1); Total Protein 6.6 g/dL (6.4-8.2)
== END | disposition home or self-care (01) ==
LOC: LAB 14:50
PROVIDERS: ATTEND Physician Assistant
DX: M06.9 Rheumatoid arthritis, unspecified (principal)
CPT/HCPCS: 36415; 80053; 85025; 85652; 86141

== ENCOUNTER 2018-02-04 17:49 | Emergency (ER) | payer OTHER, MEDICAID ==
[~2018-02-04] VITALS: Ht 157.5 cm; Wt 55.3 kg
[2018-02-04 18:23] VITALS: BP 157/70
[2018-02-04 19:51] LABS: Basophils # (auto) 0.1 uL; Basophils % (auto) 1.7 % (0.0-2.0); Eosinophils # (auto) 0.1 uL; Eosinophils % (auto) 1.6 % (0.0-7.0); Hematocrit 32.1 % (41.0-53.0); Hemoglobin 10.6 g/dL (13.5-17.5); Lymphocytes # (auto) 1.2 uL; Mean Corpuscular Hemoglobin 30.6 pg (28.0-32.0); Mean Corpuscular Volume 92.6 fL (80.0-100.0); Monocytes # (auto) 0.6 uL; Monocytes % (auto) 8.1 % (0.0-12.0); Neutrophils # (auto) 5.4 uL; Neutrophils % (auto) 72.6 % (37.0-80.0); Platelet Count (auto) 411 10^3/uL (140-450); Red Blood Cells 3.46 10^6/uL (4.5-5.90); Red Cell Distribution Width 15.6 % (11.8-14.3); White Blood Cell 7.4 10^3/uL (4.4-10.8)
[2018-02-04 20:22] LABS: Alanine Aminotransferase 53 U/L (16-61); Albumin 2.5 g/dL (3.4-5.0); Alkaline Phosphatase 198 U/L (45-117); Anion Gap 4 (5-15); Aspartate Aminotransferase 19 U/L (15-37); BUN/Creatinine Ratio 12.7; Bilirubin, Total 0.4 mg/dL (0.2-1.0); Blood Urea Nitrogen 8 mg/dL (7-18); Calcium 8.5 mg/dL (8.5-10.1); Carbon Dioxide 30 mmol/L (21-32); Chloride 100 mmol/L (98-107); GFR African American 161 mL/min; GFR Non-African American 133 mL/min; Glucose 150 mg/dL (74-106); Potassium 4.3 mmol/L (3.5-5.1); Sodium 134 mmol/L (136-145); Total Protein 6.6 g/dL (6.4-8.2)
== END 2018-02-04 23:26 | disposition left against medical advice (07) ==
LOC: ER 17:52
DX: R06.02 Shortness of breath (principal); R51 Headache; R42 Dizziness and giddiness; Z53.21 Procedure and treatment not carried out due to patient leaving prior to being seen by health care provider
CPT/HCPCS: 36415; 80053; 83880; 84484; 85025

== ENCOUNTER → 2018-03-25 | Outpatient (CLI) | payer OTHER, MEDICAID ==
[2018-03-25 11:11] LABS: Albumin 3.6 g/dL (3.4-5.0); BUN/Creatinine Ratio 17.2; Bilirubin, Total 0.3 mg/dL (0.2-1.0); Calcium 8.6 mg/dL (8.5-10.1); Potassium 4.1 mmol/L (3.5-5.1); Total Protein 6.5 g/dL (6.4-8.2)
[2018-03-25 11:33] LABS: Micro Albumin 5.09 mg/L (0-30.0)
== END | disposition home or self-care (01) ==
LOC: LAB 10:28
DX: E11.65 Type 2 diabetes mellitus with hyperglycemia (principal)
CPT/HCPCS: 36415; 80053; 82043; 82570; 83036

== ENCOUNTER → 2018-04-13 | Outpatient (CLI) | payer OTHER, MEDICAID ==
[2018-04-13 11:03] LABS: Urine Bacteria NONE SEEN /hpf (None Seen); Urine Blood Negative /uL (Negative); Urine Specific Gravity 1.003 (1.001-1.035); Urine WBC 1 /hpf (0 - 3)
[2018-04-13 11:04] LABS: Basophils # (auto) 0.1 uL; Basophils % (auto) 1.1 % (0.0-2.0); Eosinophils # (auto) 0.1 uL; Eosinophils % (auto) 0.7 % (0.0-7.0); Hematocrit 33.5 % (41.0-53.0); Hemoglobin 10.9 g/dL (13.5-17.5); Lymphocytes % (auto) 20.6 % (10.0-50.0); Mean Corpuscular Hemoglobin 29.7 pg (28.0-32.0); Mean Corpuscular Hgb Conc. 32.6 g/dL (32.0-36.0); Mean Corpuscular Volume 90.9 fL (80.0-100.0); Monocytes # (auto) 0.6 uL; Monocytes % (auto) 5.9 % (0.0-12.0); Neutrophils % (auto) 71.7 % (37.0-80.0); Platelet Count (auto) 381 10^3/uL (140-450); Red Blood Cells 3.68 10^6/uL (4.5-5.90); Red Cell Distribution Width 16.3 % (11.8-14.3); White Blood Cell 9.8 10^3/uL (4.4-10.8)
[2018-04-13 11:43] LABS: Albumin 3.5 g/dL (3.4-5.0); BUN/Creatinine Ratio 11.7; Bilirubin, Total 0.4 mg/dL (0.2-1.0); Calcium 8.4 mg/dL (8.5-10.1); Potassium 4.2 mmol/L (3.5-5.1); Total Protein 6.3 g/dL (6.4-8.2)
== END | disposition home or self-care (01) ==
LOC: LAB 10:17
PROVIDERS: ATTEND Internal Medicine
DX: I11.0 Hypertensive heart disease with heart failure (principal); I50.9 Heart failure, unspecified; E11.42 Type 2 diabetes mellitus with diabetic polyneuropathy; E11.65 Type 2 diabetes mellitus with hyperglycemia; M06.9 Rheumatoid arthritis, unspecified; K21.9 Gastro-esophageal reflux disease without esophagitis; E78.5 Hyperlipidemia, unspecified; I25.10 Atherosclerotic heart disease of native coronary artery without angina pectoris; Z79.899 Other long term (current) drug therapy; Z79.82 Long term (current) use of aspirin
CPT/HCPCS: 36415; 80053; 80061; 81001; 83036; 84153; 84443; 85025; 85652

== ENCOUNTER 2018-07-27 16:36 | Emergency (ER) | payer OTHER, MEDICAID ==
[~2018-07-27] VITALS: Ht 157.5 cm; Wt 52.6 kg
[2018-07-27 16:50] VITALS: BP 161/75
[2018-07-27] MEDS ORDERED: TRIAMCINOLONE 40MG/ML 1ML VIAL IM ONE (17:45)
== END 2018-07-27 18:09 | disposition home or self-care (01) ==
LOC: ER 16:42
DX: M25.562 Pain in left knee (principal); F17.210 Nicotine dependence, cigarettes, uncomplicated; J44.9 Chronic obstructive pulmonary disease, unspecified; I10 Essential (primary) hypertension; I25.2 Old myocardial infarction; M19.90 Unspecified osteoarthritis, unspecified site; Z90.89 Acquired absence of other organs; Z98.61 Coronary angioplasty status; Z79.899 Other long term (current) drug therapy; Z88.8 Allergy status to other drugs, medicaments and biological substances; Z88.6 Allergy status to analgesic agent
CPT/HCPCS: 96372; 99283; J3301

== ENCOUNTER 2018-08-02 10:08 | Inpatient (IN) | payer OTHER, MEDICAID ==
[~2018-08-02] VITALS: Ht 157.5 cm; Wt 55.4 kg
[2018-08-02] MEDS ORDERED: CLINDAMYCIN 600MG IV 50 ML IV ONE (12:00)
[2018-08-02] MEDS ORDERED: VANCOMYCIN 1GM/250ML 250 ML IV ONE (12:45)
[2018-08-02 13:00] LABS: Basophils # (auto) 0.1 uL; Basophils % (auto) 0.9 % (0.0-2.0); Eosinophils # (auto) 0 uL; Eosinophils % (auto) 0.4 % (0.0-7.0); Hematocrit 34.6 % (41.0-53.0); Hemoglobin 11.5 g/dL (13.5-17.5); Lymphocytes # (auto) 1.7 uL; Lymphocytes % (auto) 17.9 % (10.0-50.0); Mean Corpuscular Hemoglobin 30.4 pg (28.0-32.0); Mean Corpuscular Hgb Conc. 33.2 g/dL (32.0-36.0); Mean Corpuscular Volume 91.6 fL (80.0-100.0); Monocytes # (auto) 0.7 uL; Monocytes % (auto) 7.6 % (0.0-12.0); Neutrophils # (auto) 6.9 uL; Neutrophils % (auto) 73.2 % (37.0-80.0); Nucleated Red Blood Cells % 0.1 %; Platelet Count (auto) 358 10^3/uL (140-450); Red Blood Cells 3.77 10^6/uL (4.5-5.90); White Blood Cell 9.5 10^3/uL (4.4-10.8)
[2018-08-02 13:14] LABS: INR 0.89 (0.9-1.15); Partial Thromboplastin Time 27.2 sec (23.78-33.04); Prothrombin Time 9.6 sec (9.27-12.13)
[2018-08-02 13:30] LABS: Lactic Acid w/Reflex 2.8 mmol/L (0.4-2.0)
[2018-08-02] MEDS ORDERED: HYDROcodone-ACET 10/325MG TAB PO ONE (13:30)
[2018-08-02 13:31] LABS: Alanine Aminotransferase 40 U/L (16-61); Albumin 3.5 g/dL (3.4-5.0); Alkaline Phosphatase 82 U/L (45-117); Anion Gap 5 (5-15); Aspartate Aminotransferase 21 U/L (15-37); BUN/Creatinine Ratio 14.1; Bilirubin, Total 0.4 mg/dL (0.2-1.0); Blood Urea Nitrogen 10 mg/dL (7-18); Calcium 8.6 mg/dL (8.5-10.1); Carbon Dioxide 27 mmol/L (21-32); Chloride 103 mmol/L (98-107); GFR African American 140 mL/min; GFR Non-African American 116 mL/min; Glucose 174 mg/dL (74-106); Potassium 4.1 mmol/L (3.5-5.1); Sodium 135 mmol/L (136-145); Total Protein 6.9 g/dL (6.4-8.2)
[2018-08-02 15:55] LABS: Urine Bacteria NONE SEEN /hpf (None Seen); Urine Blood Negative /uL (Negative); Urine Mucus FEW (None Seen); Urine Specific Gravity 1.004 (1.001-1.035); Urine WBC <1 /hpf (0 - 3)
[2018-08-02] MEDS ORDERED: DEXTROSE (50%) 50ML SYRG IV PRN (16:00)
[2018-08-02] MEDS ORDERED: ALBUTEROL SULF 2.5 MG/0.5ML(0.5%) NEB SOLN NEB PRN (16:30)
[2018-08-02] MEDS: ACCU-CHEK COMFORT CURVE STRIP VI SCH ×2 (16:52→21:53)
[2018-08-02] MEDS: InsuLIN REG 1unit/0.01ml Soln (100units/ml) SC SCH ×2 (16:52→22:00)
[2018-08-02] MEDS: MEROPENEM 1GM IVPB 100 ML IV SCH ×2 (16:56→21:52)
[2018-08-02] MEDS: MORPHINE SULFATE 4 MG/ML SYR/VIAL IV PRN ×2 (17:47→21:53)
[2018-08-02] MEDS: BUDESONIDE (INHALATION) 0.5 MG/2 ML NEB NEB SCH (18:10)
[2018-08-02] MEDS: ATORVASTATIN 20 MG TAB PO SCH (21:50)
[2018-08-02] MEDS: MONTELUKAST SODIUM 10 MG TAB PO SCH (21:51)
[2018-08-02] MEDS: GABAPENTIN 300 MG CAP PO SCH (21:51)
[2018-08-02] MEDS: cloNIDine HCL 0.1 MG TAB PO SCH (21:52)
[2018-08-02 22:00] VITALS: BP 163/72
[2018-08-02] MEDS ORDERED: MESALAMINE PO SCH (22:00)
[2018-08-02 22:16] VITALS: BP 163/72
[2018-08-02] MEDS: HYDROcodone-ACET 10/325MG TAB PO PRN (23:19)
[2018-08-03] VITALS (8 sets, daily range): BP systolic 126–163; BP diastolic 68–81
[2018-08-03] MEDS: MORPHINE SULFATE 4 MG/ML SYR/VIAL IV PRN ×2 (04:35→20:24)
[2018-08-03] MEDS: GABAPENTIN 300 MG CAP PO SCH ×3 (05:19→20:23)
[2018-08-03] MEDS: InsuLIN REG 1unit/0.01ml Soln (100units/ml) SC SCH ×4 (05:19→21:38)
[2018-08-03] MEDS: ACCU-CHEK COMFORT CURVE STRIP VI SCH ×4 (05:20→21:38)
[2018-08-03] MEDS: HYDROcodone-ACET 10/325MG TAB PO PRN ×2 (05:20→21:35)
[2018-08-03 06:05] LABS: Basophils # (auto) 0.1 uL; Eosinophils # (auto) 0.1 uL; Eosinophils % (auto) 0.7 % (0.0-7.0); Hemoglobin 12.1 g/dL (13.5-17.5); Lymphocytes # (auto) 1.9 uL; Lymphocytes % (auto) 23.2 % (10.0-50.0); Mean Corpuscular Hemoglobin 29.9 pg (28.0-32.0); Mean Corpuscular Hgb Conc. 32.6 g/dL (32.0-36.0); Mean Corpuscular Volume 91.7 fL (80.0-100.0); Monocytes # (auto) 0.8 uL; Monocytes % (auto) 9.7 % (0.0-12.0); Neutrophils # (auto) 5.2 uL; Neutrophils % (auto) 65.4 % (37.0-80.0); Nucleated Red Blood Cells % 0.1 %; Platelet Count (auto) 380 10^3/uL (140-450); Red Blood Cells 4.03 10^6/uL (4.5-5.90)
[2018-08-03 06:06] LABS: BUN/Creatinine Ratio 17.2; Calcium 8.9 mg/dL (8.5-10.1); Potassium 4.2 mmol/L (3.5-5.1)
[2018-08-03] MEDS: MEROPENEM 1GM IVPB 100 ML IV SCH ×3 (06:21→20:23)
[2018-08-03] MEDS: LACTULOSE 20Gm/30ML SOLN PO PRN ×2 (06:35→19:11)
[2018-08-03] MEDS: PANTOPRAZOLE 40 MG TAB PO SCH (09:10)
[2018-08-03] MEDS: ASPirin 81 mg TAB PO SCH (09:10)
[2018-08-03] MEDS: CLOPIDOGREL BISULFATE 75 MG TAB PO SCH (09:10)
[2018-08-03] MEDS: cloNIDine HCL 0.1 MG TAB PO SCH ×2 (09:11→21:38)
[2018-08-03] MEDS ORDERED: MESALAMINE 400mg Delayed Release Cap PO ONE (09:30)
[2018-08-03] MEDS: BUDESONIDE (INHALATION) 0.5 MG/2 ML NEB NEB SCH ×2 (10:00→18:25)
[2018-08-03] MEDS: MESALAMINE 400mg Delayed Release Cap PO SCH (17:57)
[2018-08-03] MEDS ORDERED: MESALAMINE 400mg Delayed Release Cap PO SCH (20:00)
[2018-08-03] MEDS: ATORVASTATIN 20 MG TAB PO SCH (20:23)
[2018-08-03] MEDS: MONTELUKAST SODIUM 10 MG TAB PO SCH (20:24)
[2018-08-04] MEDS: MORPHINE SULFATE 4 MG/ML SYR/VIAL IV PRN (03:47)
[2018-08-04 05:00] VITALS: BP 147/77
[2018-08-04] MEDS: InsuLIN REG 1unit/0.01ml Soln (100units/ml) SC SCH ×2 (05:00→11:30)
[2018-08-04] MEDS: ACCU-CHEK COMFORT CURVE STRIP VI SCH ×2 (05:00→11:49)
[2018-08-04] MEDS: MEROPENEM 1GM IVPB 100 ML IV SCH ×2 (05:40→14:00)
[2018-08-04] MEDS: HYDROcodone-ACET 10/325MG TAB PO PRN (05:40)
[2018-08-04] MEDS: GABAPENTIN 300 MG CAP PO SCH ×2 (05:40→14:00)
[2018-08-04] MEDS: LACTULOSE 20Gm/30ML SOLN PO PRN (05:42)
[2018-08-04] MEDS: MESALAMINE 400mg Delayed Release Cap PO SCH (05:42)
[2018-08-04 08:00] VITALS: BP 123/76
[2018-08-04 08:42] VITALS: BP 139/85
[2018-08-04] MEDS: ASPirin 81 mg TAB PO SCH (09:27)
[2018-08-04] MEDS: cloNIDine HCL 0.1 MG TAB PO SCH (09:27)
[2018-08-04] MEDS: PANTOPRAZOLE 40 MG TAB PO SCH (09:27)
[2018-08-04] MEDS: CLOPIDOGREL BISULFATE 75 MG TAB PO SCH (09:27)
[2018-08-04] MEDS ORDERED: LEVOFLOXACIN 500 MG TAB PO ONE (11:30)
[2018-08-04 12:05] VITALS: BP 119/64
[2018-08-04 12:58] VITALS: BP 139/85
== END 2018-08-04 15:00 | disposition home or self-care (01) | DRG 603 ==
LOC: ER 10:08 → OVERFLOW 10:09 → CENTRAL 21:15
PROVIDERS: ADMIT Internal Medicine; ATTEND Internal Medicine
DX: L03.116 Cellulitis of left lower limb (principal); I50.42 Chronic combined systolic (congestive) and diastolic (congestive) heart failure; I25.10 Atherosclerotic heart disease of native coronary artery without angina pectoris; K52.9 Noninfective gastroenteritis and colitis, unspecified; E11.9 Type 2 diabetes mellitus without complications; E78.5 Hyperlipidemia, unspecified; F41.9 Anxiety disorder, unspecified; M19.90 Unspecified osteoarthritis, unspecified site; I11.0 Hypertensive heart disease with heart failure; J44.9 Chronic obstructive pulmonary disease, unspecified; K21.9 Gastro-esophageal reflux disease without esophagitis; M06.9 Rheumatoid arthritis, unspecified; Z87.11 Personal history of peptic ulcer disease; Z95.5 Presence of coronary angioplasty implant and graft; Z88.8 Allergy status to other drugs, medicaments and biological substances; Z88.1 Allergy status to other antibiotic agents; Z88.5 Allergy status to narcotic agent; Z88.0 Allergy status to penicillin; Z88.2 Allergy status to sulfonamides; Z90.89 Acquired absence of other organs; Z90.49 Acquired absence of other specified parts of digestive tract
CPT/HCPCS: 36415; 71045; 73700; 74176; 80048; 80053; 81001; 82962; 83036; 83605; 83880; 84484; 84550; 85025; 85610; 85730; 87040; 93971; 94640; J1815; J2185

== ENCOUNTER 2018-08-11 17:46 | Emergency (ER) | payer OTHER, MEDICAID ==
[~2018-08-11] VITALS: Ht 157.5 cm; Wt 47.6 kg
[2018-08-11 19:32] LABS: Basophils # (auto) 0.1 uL; Basophils % (auto) 0.9 % (0.0-2.0); Eosinophils # (auto) 0.1 uL; Eosinophils % (auto) 0.7 % (0.0-7.0); Hematocrit 34.1 % (41.0-53.0); Hemoglobin 11.1 g/dL (13.5-17.5); Lymphocytes # (auto) 1.4 uL; Lymphocytes % (auto) 16.2 % (10.0-50.0); Mean Corpuscular Hemoglobin 29.7 pg (28.0-32.0); Mean Corpuscular Hgb Conc. 32.4 g/dL (32.0-36.0); Mean Corpuscular Volume 91.5 fL (80.0-100.0); Monocytes # (auto) 0.9 uL; Monocytes % (auto) 10.4 % (0.0-12.0); Neutrophils # (auto) 6.1 uL; Neutrophils % (auto) 71.8 % (37.0-80.0); Platelet Count (auto) 442 10^3/uL (140-450); Red Blood Cells 3.72 10^6/uL (4.5-5.90); Red Cell Distribution Width 17.1 % (11.8-14.3); White Blood Cell 8.5 10^3/uL (4.4-10.8)
[2018-08-11 19:49] LABS: Albumin 3.3 g/dL (3.4-5.0); BUN/Creatinine Ratio 19.4; Calcium 8.3 mg/dL (8.5-10.1); Potassium 4.1 mmol/L (3.5-5.1)
[2018-08-11 19:52] LABS: Bilirubin, Total 0.4 mg/dL (0.2-1.0); Total Protein 6.3 g/dL (6.4-8.2)
[2018-08-11 21:15] LABS: Urine Bacteria NONE SEEN /hpf (None Seen); Urine Blood Negative /uL (Negative); Urine Specific Gravity 1.012 (1.001-1.035); Urine WBC <1 /hpf (0 - 3)
[2018-08-11] MEDS ORDERED: ONDANSETRON HCL 4 MG/2 ML VIAL IV ONE (21:30)
[2018-08-11] MEDS ORDERED: MORPHINE SULFATE 4 MG/ML SYR/VIAL IV ONE (21:30)
[2018-08-11] MEDS ORDERED: cefTRIAXone W LIDOCAINE 1 GM IM IM ONE (23:00)
[2018-08-11 23:09] VITALS: BP 115/56
[2018-08-11] MEDS ORDERED: cefTRIAXone 1GM/10ml IVPUSH 10 ML IV ONE (23:30)
== END 2018-08-12 01:01 | disposition home or self-care (01) ==
LOC: ER 17:46
DX: M71.22 Synovial cyst of popliteal space [Baker], left knee (principal); F17.210 Nicotine dependence, cigarettes, uncomplicated; J44.9 Chronic obstructive pulmonary disease, unspecified; I11.0 Hypertensive heart disease with heart failure; I50.9 Heart failure, unspecified; M19.90 Unspecified osteoarthritis, unspecified site; Z79.899 Other long term (current) drug therapy; Z88.1 Allergy status to other antibiotic agents; Z88.8 Allergy status to other drugs, medicaments and biological substances
CPT/HCPCS: 20610; 36415; 73700; 80053; 81001; 85025; 93971; 96374; 96375; 99285; J0696; J2270; J2405

== ENCOUNTER 2018-08-19 17:36 | Emergency (ER) | payer OTHER, MEDICAID ==
[~2018-08-19] VITALS: Ht 157.5 cm; Wt 47.6 kg
[2018-08-19 20:06] VITALS: BP 148/73
[2018-08-19] MEDS ORDERED: KETOROLAC TROMETH 60MG/2ML VIAL IM ONE (20:45)
[2018-08-19] MEDS ORDERED: LIDOCAINE W/ EPINEPHRINE 2% INJ 20ML VIAL IJ ONE (21:00)
[2018-08-19] MEDS ORDERED: MEPERIDINE HCL (25 MG/ML) 1ML VIAL IM ONE (21:00)
[2018-08-19] MEDS ORDERED: TRIAMCINOLONE 40MG/ML 1ML VIAL ONE (21:26)
[2018-08-19] MEDS ORDERED: TRIAMCINOLONE 40MG/ML 1ML VIAL IM ONE (21:30)
== END 2018-08-19 21:59 | disposition home or self-care (01) ==
LOC: ER 17:41
DX: M06.862 Other specified rheumatoid arthritis, left knee (principal); M25.062 Hemarthrosis, left knee; J44.9 Chronic obstructive pulmonary disease, unspecified; I11.0 Hypertensive heart disease with heart failure; I50.9 Heart failure, unspecified; E11.9 Type 2 diabetes mellitus without complications; F17.210 Nicotine dependence, cigarettes, uncomplicated; Z90.89 Acquired absence of other organs; Z98.61 Coronary angioplasty status; Z79.899 Other long term (current) drug therapy; Z88.1 Allergy status to other antibiotic agents; Z88.6 Allergy status to analgesic agent
CPT/HCPCS: 20610; 93926; 96372; 99284; J2175; J3301

== ENCOUNTER → 2018-09-01 | Outpatient (CLI) | payer OTHER, MEDICAID | END | disposition home or self-care (01) | LOC: LAB 12:46 | PROVIDERS: ATTEND Internal Medicine | DX: M06.9 Rheumatoid arthritis, unspecified (principal); M10.00 Idiopathic gout, unspecified site; M00.9 Pyogenic arthritis, unspecified | CPT/HCPCS: 87070; 87205; 89051; 89060 ==

== ENCOUNTER → 2018-09-02 | Outpatient (CLI) | payer OTHER, MEDICAID ==
[2018-09-02 12:19] LABS: Urine WBC None Seen /hpf (0 - 3)
[2018-09-02 12:33] LABS: Basophils # (auto) 0 uL; Basophils % (auto) 0.2 % (0.0-2.0); Eosinophils # (auto) 0 uL; Eosinophils % (auto) 0.1 % (0.0-7.0); Hematocrit 34.7 % (41.0-53.0); Hemoglobin 10.9 g/dL (13.5-17.5); Lymphocytes # (auto) 1.2 uL; Lymphocytes % (auto) 9.4 % (10.0-50.0); Mean Corpuscular Hgb Conc. 31.4 g/dL (32.0-36.0); Mean Corpuscular Volume 89.3 fL (80.0-100.0); Monocytes # (auto) 0.8 uL; Monocytes % (auto) 6.6 % (0.0-12.0); Neutrophils # (auto) 10.6 uL; Neutrophils % (auto) 83.7 % (37.0-80.0); Platelet Count (auto) 420 10^3/uL (140-450); Red Blood Cells 3.89 10^6/uL (4.5-5.90); Red Cell Distribution Width 16.4 % (11.8-14.3); Urine Bacteria NONE SEEN /hpf (None Seen); Urine Blood Negative /uL (Negative); Urine Specific Gravity 1.004 (1.001-1.035); White Blood Cell 12.6 10^3/uL (4.4-10.8)
[2018-09-02 13:25] LABS: Albumin 3.8 g/dL (3.4-5.0); BUN/Creatinine Ratio 21.7; CRP High Sensitivity 0.1 mg/dL (< 0.3); Calcium 8.7 mg/dL (8.5-10.1); Potassium 4.2 mmol/L (3.5-5.1)
[2018-09-02 13:28] LABS: Bilirubin, Total 0.4 mg/dL (0.2-1.0)
[2018-09-03 06:06] LABS: RPR Non Reactive (Non Reactive)
[2018-09-05 09:58] LABS: Hepatitis B Surface Antibody Negative
[2018-09-05 10:33] LABS: Hepatitis A Total Antibody Positive
[2018-09-05 12:55] LABS: Hepatitis B Core Total AB Negative; Hepatitis B Surface Antigen Negative (Negative); Hepatitis C Antibody Negative (Negative)
== END | disposition home or self-care (01) ==
LOC: LAB 11:21
PROVIDERS: ATTEND Internal Medicine
DX: Z11.59 Encounter for screening for other viral diseases (principal); I10 Essential (primary) hypertension; M06.9 Rheumatoid arthritis, unspecified; M00.9 Pyogenic arthritis, unspecified; M32.10 Systemic lupus erythematosus, organ or system involvement unspecified; A15.0 Tuberculosis of lung; M45.0 Ankylosing spondylitis of multiple sites in spine; Z72.89 Other problems related to lifestyle; Z79.899 Other long term (current) drug therapy
CPT/HCPCS: 36415; 80053; 81001; 85025; 85652; 86038; 86141; 86200; 86235; 86431; 86592; 86704; 86706; 86708; 86803; 86812; 87340

== ENCOUNTER → 2018-09-27 | Outpatient (CLI) | payer OTHER, MEDICAID ==
[~2018-09-27] MED LIST changes: +BARIUM SULFATE 98% 340 GM PWDR ONE; +EZ PAQUE SUSP 12OZ BTL ONE
== END | disposition home or self-care (01) ==
LOC: XY 09:32
PROVIDERS: ATTEND Internal Medicine Gastroenterology
DX: R13.10 Dysphagia, unspecified (principal)
CPT/HCPCS: 74230

== ENCOUNTER → 2018-10-13 | Outpatient (CLI) | payer OTHER, MEDICAID ==
[~2018-10-13] MED LIST changes: -BARIUM SULFATE 98% 340 GM PWDR ONE; -EZ PAQUE SUSP 12OZ BTL ONE
[2018-10-13 12:22] LABS: Urine WBC None Seen /hpf (0 - 3)
[2018-10-13 12:25] LABS: Basophils # (auto) 0 uL; Basophils % (auto) 0.3 % (0.0-2.0); Eosinophils # (auto) 0 uL; Eosinophils % (auto) 0.2 % (0.0-7.0); Hematocrit 33.1 % (41.0-53.0); Hemoglobin 10.9 g/dL (13.5-17.5); Lymphocytes # (auto) 1.3 uL; Lymphocytes % (auto) 12.7 % (10.0-50.0); Mean Corpuscular Hemoglobin 28.7 pg (28.0-32.0); Mean Corpuscular Hgb Conc. 32.8 g/dL (32.0-36.0); Mean Corpuscular Volume 87.3 fL (80.0-100.0); Monocytes # (auto) 0.8 uL; Monocytes % (auto) 7.5 % (0.0-12.0); Neutrophils % (auto) 79.3 % (37.0-80.0); Platelet Count (auto) 389 10^3/uL (140-450); Red Blood Cells 3.79 10^6/uL (4.5-5.90); White Blood Cell 10.1 10^3/uL (4.4-10.8)
[2018-10-13 12:39] LABS: Urine Bacteria NONE SEEN /hpf (None Seen); Urine Blood Negative /uL (Negative); Urine Specific Gravity 1.003 (1.001-1.035)
== END | disposition home or self-care (01) ==
LOC: LAB 12:03
PROVIDERS: ATTEND Internal Medicine
DX: M06.9 Rheumatoid arthritis, unspecified (principal); Z79.899 Other long term (current) drug therapy
CPT/HCPCS: 36415; 81001; 85025; 87086

== ENCOUNTER → 2018-12-27 | Outpatient (CLI) | payer OTHER, MEDICAID ==
[2018-12-27 11:09] LABS: Albumin 3.7 g/dL (3.4-5.0); Bilirubin, Direct 0.1 mg/dL (0-0.2)
[2018-12-27 11:13] LABS: Bilirubin, Total 0.4 mg/dL (0.2-1.0); Total Protein 6.5 g/dL (6.4-8.2)
== END | disposition home or self-care (01) ==
LOC: LAB 10:13
PROVIDERS: ATTEND Internal Medicine
DX: E11.9 Type 2 diabetes mellitus without complications (principal); M06.9 Rheumatoid arthritis, unspecified
CPT/HCPCS: 36415; 80076; 83036

== ENCOUNTER 2019-01-10 10:54 | Inpatient (IN) | payer OTHER, MEDICAID ==
[~2019-01-10] VITALS: Ht 157.5 cm; Wt 47.6 kg
[2019-01-10 12:28] LABS: Urine Bacteria NONE SEEN /hpf (None Seen); Urine Blood TRACE /uL (Negative); Urine Specific Gravity 1.013 (1.001-1.035); Urine WBC <1 /hpf (0 - 3)
[2019-01-10 13:47] LABS: Basophils # (auto) 0 uL; Basophils % (auto) 0.2 % (0.0-2.0); Eosinophils # (auto) 0 uL; Hemoglobin 10.2 g/dL (13.5-17.5); Lymphocytes # (auto) 0.8 uL; Nucleated Red Blood Cells % 0.1 %
[2019-01-10 13:49] LABS: Eosinophils % (auto) 0.2 % (0.0-7.0); Hematocrit 32.2 % (41.0-53.0); Lymphocytes % (auto) 6.8 % (10.0-50.0); Mean Corpuscular Hemoglobin 26.2 pg (28.0-32.0); Mean Corpuscular Hgb Conc. 31.7 g/dL (32.0-36.0); Mean Corpuscular Volume 82.6 fL (80.0-100.0); Monocytes % (auto) 8.3 % (0.0-12.0); Neutrophils # (auto) 10.4 uL; Neutrophils % (auto) 84.5 % (37.0-80.0); Platelet Count (auto) 308 10^3/uL (140-450); Red Cell Distribution Width 18.4 % (11.8-14.3); White Blood Cell 12.2 10^3/uL (4.4-10.8)
[2019-01-10 14:07] LABS: INR 0.87 (0.9-1.15); Partial Thromboplastin Time 28.2 sec (23.78-33.04); Prothrombin Time 9.4 sec (9.27-12.13)
[2019-01-10 14:17] LABS: Lactic Acid w/Reflex 2.5 mmol/L (0.4-2.0); Magnesium 2.2 mg/dL (1.6-2.6)
[2019-01-10 14:19] LABS: BUN/Creatinine Ratio 12.1; Calcium 8.4 mg/dL (8.5-10.1); Potassium 4.3 mmol/L (3.5-5.1)
[2019-01-10 14:22] LABS: Bilirubin, Total 0.4 mg/dL (0.2-1.0); Total Protein 6.4 g/dL (6.4-8.2)
[2019-01-10] MEDS ORDERED: LEVOFLOXACIN 500MG 100 ML IV ONE (14:45)
[2019-01-10] MEDS ORDERED: FUROSEMIDE 40 MG/4 ML VIAL IV ONE (14:45)
[2019-01-10] MEDS ORDERED: DEXTROSE (50%) 50ML SYRG IV PRN (14:45)
[2019-01-10] MEDS ORDERED: POTASSIUM CHL 20 Meq TABLET PO ONE (14:45)
[2019-01-10] MEDS: ALBUTEROL SULF 2.5 MG/0.5ML(0.5%) NEB SOLN NEB SCH ×2 (19:50→23:10)
[2019-01-10] MEDS: IPRATROPIUM BROM 0.5 MG/2.5ML INH SOL NEB SCH ×2 (19:51→23:10)
[2019-01-10] MEDS: ACCU-CHEK COMFORT CURVE STRIP VI SCH ×2 (20:52→22:07)
[2019-01-10] MEDS: InsuLIN REG 1unit/0.01ml Soln (100units/ml) SC SCH ×2 (21:00→22:20)
--- NOTE | 2019-01-10 21:30 | NUR ---
MS admit from ER MARIBEL INIGUEZ admitted to tele/MS after SBAR received. Patient oriented to Leda Patel, primary RN, unit, room, bed, and unit policies regarding patient care and visiting hours. Patient weighed by bedscale and encouraged to call if they need something. All questions and concerns addressed, patient verbalized understanding. Note:
[2019-01-10 21:45] VITALS: BP 120/65
[2019-01-10 22:00] VITALS: BP 120/65
[2019-01-10] MEDS: cloNIDine HCL 0.1 MG TAB PO SCH (22:00)
[2019-01-10] MEDS: MONTELUKAST SODIUM 10 MG TAB PO SCH (22:00)
[2019-01-10] MEDS: GABAPENTIN 300 MG CAP PO SCH (22:00)
[2019-01-10] MEDS: ATORVASTATIN 20 MG TAB PO SCH (22:00)
[2019-01-10] MEDS: MESALAMINE 400mg Delayed Release Cap PO SCH (22:10)
[2019-01-10 23:40] VITALS: BP 120/65
[2019-01-11 05:19] VITALS: BP 144/69
[2019-01-11 05:46] LABS: Basophils # (auto) 0 uL; Eosinophils # (auto) 0 uL; Lymphocytes # (auto) 0.6 uL; Mean Corpuscular Hgb Conc. 31.8 g/dL (32.0-36.0)
[2019-01-11 05:50] LABS: Basophils % (auto) 0.2 % (0.0-2.0); Eosinophils % (auto) 0.1 % (0.0-7.0); Hematocrit 27.5 % (41.0-53.0); Hemoglobin 8.7 g/dL (13.5-17.5); Lymphocytes % (auto) 10.1 % (10.0-50.0); Mean Corpuscular Hemoglobin 26.1 pg (28.0-32.0); Mean Corpuscular Volume 82.2 fL (80.0-100.0); Monocytes # (auto) 0.6 uL; Monocytes % (auto) 9.1 % (0.0-12.0); Neutrophils # (auto) 4.9 uL; Neutrophils % (auto) 80.5 % (37.0-80.0); Nucleated Red Blood Cells % 0.2 %; Platelet Count (auto) 292 10^3/uL (140-450); Red Blood Cells 3.35 10^6/uL (4.5-5.90); Red Cell Distribution Width 18.6 % (11.8-14.3); White Blood Cell 6.1 10^3/uL (4.4-10.8)
[2019-01-11 06:10] LABS: BUN/Creatinine Ratio 18.5
[2019-01-11] MEDS: ALBUTEROL SULF 2.5 MG/0.5ML(0.5%) NEB SOLN NEB SCH ×2 (06:35→19:30)
[2019-01-11] MEDS: IPRATROPIUM BROM 0.5 MG/2.5ML INH SOL NEB SCH ×2 (06:35→19:30)
[2019-01-11] MEDS: ACCU-CHEK COMFORT CURVE STRIP VI SCH ×4 (06:46→22:20)
[2019-01-11] MEDS: InsuLIN REG 1unit/0.01ml Soln (100units/ml) SC SCH ×4 (06:46→22:34)
[2019-01-11] MEDS: GABAPENTIN 300 MG CAP PO SCH ×3 (06:46→20:57)
[2019-01-11] MEDS: MESALAMINE 400mg Delayed Release Cap PO SCH ×4 (06:46→22:00)
--- NOTE | 2019-01-11 07:45 | NUR ---
Patient stable at this time, no sob or pain. Care endorsed to Alida GARCIA.
[2019-01-11 09:16] VITALS: BP 144/55
[2019-01-11] MEDS: LEVOFLOXACIN 500MG 100 ML IV SCH (09:58)
[2019-01-11] MEDS: FUROSEMIDE 40 MG/4 ML VIAL IV SCH (09:59)
[2019-01-11] MEDS: PANTOPRAZOLE 40 MG TAB PO SCH (10:00)
[2019-01-11] MEDS: ASPirin 81 mg TAB PO SCH (10:00)
[2019-01-11] MEDS: FOLIC ACID 1 MG TAB PO SCH (10:00)
[2019-01-11] MEDS: POTASSIUM CHL 20 Meq TABLET PO SCH (10:00)
[2019-01-11] MEDS: cloNIDine HCL 0.1 MG TAB PO SCH ×2 (10:00→21:00)
[2019-01-11] MEDS: CLOPIDOGREL BISULFATE 75 MG TAB PO SCH (10:00)
[2019-01-11 11:31] VITALS: BP 110/59
[2019-01-11 16:39] VITALS: BP 143/71
[2019-01-11] MEDS: ATORVASTATIN 20 MG TAB PO SCH (20:56)
[2019-01-11] MEDS: MONTELUKAST SODIUM 10 MG TAB PO SCH (20:57)
[2019-01-11 21:44] VITALS: BP 150/70
[2019-01-11] MEDS: traMADol HCL 50 MG TAB PO PRN (21:58)
[2019-01-12 05:14] VITALS: BP 147/79
[2019-01-12 06:13] LABS: Basophils # (auto) 0 uL; Eosinophils # (auto) 0 uL; Monocytes # (auto) 0.6 uL; Monocytes % (auto) 9.9 % (0.0-12.0); Neutrophils # (auto) 4.6 uL
[2019-01-12 06:18] LABS: Basophils % (auto) 0.4 % (0.0-2.0); Hematocrit 30.2 % (41.0-53.0); Hemoglobin 9.7 g/dL (13.5-17.5); Lymphocytes % (auto) 15.8 % (10.0-50.0); Mean Corpuscular Hemoglobin 26.2 pg (28.0-32.0); Mean Corpuscular Hgb Conc. 32.2 g/dL (32.0-36.0); Mean Corpuscular Volume 81.5 fL (80.0-100.0); Neutrophils % (auto) 73.9 % (37.0-80.0); Nucleated Red Blood Cells % 0.2 %; Platelet Count (auto) 393 10^3/uL (140-450); Red Cell Distribution Width 18.2 % (11.8-14.3); White Blood Cell 6.3 10^3/uL (4.4-10.8)
[2019-01-12] MEDS: MESALAMINE 400mg Delayed Release Cap PO SCH ×2 (06:28→14:00)
[2019-01-12] MEDS: traMADol HCL 50 MG TAB PO PRN (06:29)
[2019-01-12] MEDS: ACCU-CHEK COMFORT CURVE STRIP VI SCH ×2 (06:29→12:31)
[2019-01-12] MEDS: GABAPENTIN 300 MG CAP PO SCH ×2 (06:29→14:00)
[2019-01-12] MEDS: InsuLIN REG 1unit/0.01ml Soln (100units/ml) SC SCH ×2 (06:30→12:31)
[2019-01-12] MEDS: ALBUTEROL SULF 2.5 MG/0.5ML(0.5%) NEB SOLN NEB SCH ×3 (06:30→11:05)
[2019-01-12] MEDS: IPRATROPIUM BROM 0.5 MG/2.5ML INH SOL NEB SCH ×3 (06:30→11:05)
--- NOTE | 2019-01-12 06:30 | NUR ---
Respiratory note: SCHEDULED MEDNEB TX NOT GIVEN, PT REFUSED. HR 74, RR 16, POX 95% ON ROOM AIR. BREATH SOUNDS CLEAR DIMINISHED THROUGHOUT. NO S/S OF RESPIRATORY DISTRESS. WILL CONTINUE TO MONITOR SCHEDULED.
[2019-01-12 06:37] LABS: BUN/Creatinine Ratio 20.4; Calcium 8.6 mg/dL (8.5-10.1); Potassium 3.9 mmol/L (3.5-5.1)
--- NOTE | 2019-01-12 07:00 | NUR ---
Vinay RESIDENTIAL DRIVER called for pain meds this shift as pt states he is on Luebbering 10 mg. and Tramadol at home. Order received for Tramadol 50 mg. po. Pt slept throughout night. No respiratory distress noted. Breathe sounds clear diminished at bases, sat 95%.
--- NOTE | 2019-01-12 07:40 | NUR ---
Opening Shift Note Assumed care of patient, awake and alert. No S/S of distress/SOB or pain. Instructed on POC and to call for assist PRN, will continue to monitor for changes Q1hr and PRN.
[2019-01-12 09:12] VITALS: BP 146/71
[2019-01-12] MEDS: LEVOFLOXACIN 500MG 100 ML IV SCH (10:37)
[2019-01-12] MEDS: FUROSEMIDE 40 MG/4 ML VIAL IV SCH (10:38)
[2019-01-12] MEDS: CLOPIDOGREL BISULFATE 75 MG TAB PO SCH (10:38)
[2019-01-12] MEDS: PANTOPRAZOLE 40 MG TAB PO SCH (10:38)
[2019-01-12] MEDS: POTASSIUM CHL 20 Meq TABLET PO SCH (10:38)
[2019-01-12] MEDS: FOLIC ACID 1 MG TAB PO SCH (10:38)
[2019-01-12] MEDS: ASPirin 81 mg TAB PO SCH (10:38)
[2019-01-12] MEDS: cloNIDine HCL 0.1 MG TAB PO SCH (10:39)
--- NOTE | 2019-01-12 11:05 | NUR ---
Respiratory note: SCHEDULED MEDNEB TX NOT GIVEN, PT REFUSED. PT REFUSED VITALS/POX CHECK. PT IS STANDING IN ROOM NEXT TO BED. NO S/S OF RESPIRATORY DISTRESS.
[2019-01-12 13:00] VITALS: BP 155/62
[2019-01-12 14:00] VITALS: BP 140/75
== END 2019-01-12 16:35 | disposition home or self-care (01) | DRG 871 ==
LOC: ER 10:57 → OVERFLOW 18:28 → WEST WING 21:30
PROVIDERS: ADMIT Internal Medicine; ATTEND Internal Medicine
DX: A41.9 Sepsis, unspecified organism (principal); I50.43 Acute on chronic combined systolic (congestive) and diastolic (congestive) heart failure; J18.1 Lobar pneumonia, unspecified organism; K51.90 Ulcerative colitis, unspecified, without complications; E87.1 Hypo-osmolality and hyponatremia; J44.0 Chronic obstructive pulmonary disease with (acute) lower respiratory infection; F41.9 Anxiety disorder, unspecified; M19.90 Unspecified osteoarthritis, unspecified site; I11.0 Hypertensive heart disease with heart failure; I25.10 Atherosclerotic heart disease of native coronary artery without angina pectoris; M06.9 Rheumatoid arthritis, unspecified; E11.40 Type 2 diabetes mellitus with diabetic neuropathy, unspecified; D63.8 Anemia in other chronic diseases classified elsewhere; F17.210 Nicotine dependence, cigarettes, uncomplicated; K21.9 Gastro-esophageal reflux disease without esophagitis; Z79.899 Other long term (current) drug therapy; Z90.49 Acquired absence of other specified parts of digestive tract; Z95.5 Presence of coronary angioplasty implant and graft; Z87.11 Personal history of peptic ulcer disease; Z86.73 Personal history of transient ischemic attack (TIA), and cerebral infarction without residual deficits
CPT/HCPCS: 36415; 71045; 71046; 74176; 80048; 80053; 81001; 82962; 83036; 83605; 83735; 83880; 84484; 85025; 85610; 85730; 87040; 93005; 93306; 94640; 94761; 96365; 96375; G0378; J1815; J1956

== ENCOUNTER 2019-01-17 12:47 | Emergency (ER) | payer OTHER, MEDICAID ==
[~2019-01-17] VITALS: Ht 157.5 cm; Wt 48.5 kg
[2019-01-17 15:12] VITALS: BP 144/81
[2019-01-17] MEDS ORDERED: LIDOCAINE W/ EPINEPHRINE 2% INJ 20ML VIAL IJ ONE (15:45)
[2019-01-17] MEDS ORDERED: TRIAMCINOLONE 40MG/ML 1ML VIAL IM ONE (15:45)
== END 2019-01-17 16:44 | disposition home or self-care (01) ==
LOC: ER 12:47
DX: M17.12 Unilateral primary osteoarthritis, left knee (principal); I11.0 Hypertensive heart disease with heart failure; I50.9 Heart failure, unspecified; K21.9 Gastro-esophageal reflux disease without esophagitis; Z98.61 Coronary angioplasty status; Z90.89 Acquired absence of other organs; Z79.899 Other long term (current) drug therapy; Z88.6 Allergy status to analgesic agent; Z88.1 Allergy status to other antibiotic agents; Z88.8 Allergy status to other drugs, medicaments and biological substances; Z88.0 Allergy status to penicillin
CPT/HCPCS: 20610; 73562; 99284; J3301; 96372

== ENCOUNTER 2019-02-05 14:23 | Emergency (ER) | payer OTHER, MEDICAID ==
[~2019-02-05] VITALS: Ht 157.5 cm; Wt 45.8 kg
[2019-02-05 17:11] VITALS: BP 160/72
== END 2019-02-05 17:55 | disposition home or self-care (01) ==
LOC: ER 14:26
DX: M25.462 Effusion, left knee (principal); I11.0 Hypertensive heart disease with heart failure; I50.9 Heart failure, unspecified; E11.9 Type 2 diabetes mellitus without complications; K21.9 Gastro-esophageal reflux disease without esophagitis; E78.5 Hyperlipidemia, unspecified; I25.2 Old myocardial infarction; F17.210 Nicotine dependence, cigarettes, uncomplicated; Z86.73 Personal history of transient ischemic attack (TIA), and cerebral infarction without residual deficits; Z87.11 Personal history of peptic ulcer disease; Z98.61 Coronary angioplasty status; Z88.0 Allergy status to penicillin; Z88.1 Allergy status to other antibiotic agents; Z88.6 Allergy status to analgesic agent; Z88.8 Allergy status to other drugs, medicaments and biological substances; Z79.899 Other long term (current) drug therapy
CPT/HCPCS: 20610

== ENCOUNTER → 2019-02-07 | Outpatient (CLI) | payer OTHER, MEDICAID ==
[2019-02-07 13:43] LABS: Basophils # (auto) 0.1 uL; Basophils % (auto) 0.8 % (0.0-2.0); Eosinophils # (auto) 0.1 uL; Eosinophils % (auto) 0.6 % (0.0-7.0); Hematocrit 31.8 % (41.0-53.0); Hemoglobin 9.9 g/dL (13.5-17.5); Lymphocytes # (auto) 1.6 uL; Lymphocytes % (auto) 19.6 % (10.0-50.0); Mean Corpuscular Hemoglobin 26.4 pg (28.0-32.0); Mean Corpuscular Hgb Conc. 31.1 g/dL (32.0-36.0); Mean Corpuscular Volume 85.1 fL (80.0-100.0); Monocytes # (auto) 0.7 uL; Monocytes % (auto) 8.4 % (0.0-12.0); Neutrophils # (auto) 5.9 uL; Neutrophils % (auto) 70.6 % (37.0-80.0); Platelet Count (auto) 285 10^3/uL (140-450); Red Blood Cells 3.73 10^6/uL (4.5-5.90); Red Cell Distribution Width 18.6 % (11.8-14.3); White Blood Cell 8.4 10^3/uL (4.4-10.8)
[2019-02-07 14:32] LABS: Albumin 3.7 g/dL (3.4-5.0); CRP High Sensitivity 0.04 mg/dL (< 0.3); Calcium 8.4 mg/dL (8.5-10.1); Potassium 4.4 mmol/L (3.5-5.1)
[2019-02-07 14:36] LABS: BUN/Creatinine Ratio 21.8; Bilirubin, Total 0.3 mg/dL (0.2-1.0); Total Protein 6.6 g/dL (6.4-8.2)
== END | disposition home or self-care (01) ==
LOC: LAB 13:10
PROVIDERS: ATTEND Internal Medicine
DX: M06.9 Rheumatoid arthritis, unspecified (principal); E11.9 Type 2 diabetes mellitus without complications; I11.0 Hypertensive heart disease with heart failure; I50.9 Heart failure, unspecified; E78.5 Hyperlipidemia, unspecified
CPT/HCPCS: 36415; 80053; 85025; 85652; 86141

== ENCOUNTER → 2019-03-30 | Outpatient (CLI) | payer OTHER, MEDICAID ==
[2019-03-30 11:42] LABS: Albumin 3.7 g/dL (3.4-5.0); BUN/Creatinine Ratio 16.4; Calcium 8.8 mg/dL (8.5-10.1); Potassium 4.5 mmol/L (3.5-5.1)
[2019-03-30 11:46] LABS: Bilirubin, Total 0.3 mg/dL (0.2-1.0); Total Protein 6.8 g/dL (6.4-8.2)
== END | disposition home or self-care (01) ==
LOC: LAB 10:58
PROVIDERS: ATTEND Internal Medicine
DX: E11.9 Type 2 diabetes mellitus without complications (principal); M06.9 Rheumatoid arthritis, unspecified
CPT/HCPCS: 36415; 80053; 80061; 83036

== ENCOUNTER 2019-04-19 10:31 | Emergency (ER) | payer OTHER, MEDICAID ==
[~2019-04-19] VITALS: Ht 157.5 cm; Wt 54.4 kg
[2019-04-19] MEDS ORDERED: LIDOCAINE 1% HCL (LOCAL ANESTH.) INJ 20ML MDV IJ ONE (15:15)
[2019-04-19 15:47] VITALS: BP 155/76
== END 2019-04-19 16:11 | disposition home or self-care (01) ==
LOC: ER 10:31
DX: M25.462 Effusion, left knee (principal); M17.12 Unilateral primary osteoarthritis, left knee; I11.0 Hypertensive heart disease with heart failure; I50.9 Heart failure, unspecified; E78.5 Hyperlipidemia, unspecified; K21.9 Gastro-esophageal reflux disease without esophagitis; I25.2 Old myocardial infarction; F17.210 Nicotine dependence, cigarettes, uncomplicated; Z90.89 Acquired absence of other organs; Z98.61 Coronary angioplasty status; Z88.1 Allergy status to other antibiotic agents; Z88.8 Allergy status to other drugs, medicaments and biological substances; Z79.899 Other long term (current) drug therapy
CPT/HCPCS: 20610; 73562; 73610; 99284; J2001

== ENCOUNTER 2019-04-20 08:51 | Emergency (ER) | payer OTHER, MEDICAID ==
[~2019-04-20] VITALS: Ht 157.5 cm; Wt 49.0 kg
[2019-04-20 09:40] VITALS: BP 146/72
[2019-04-20] MEDS ORDERED: KETOROLAC TROMETH 15 mg/ml 1ML VL IM ONE (09:45)
[2019-04-20] MEDS ORDERED: TRIAMCINOLONE 40MG/ML 1ML VIAL IX ONE (09:45)
[2019-04-20] MEDS ORDERED: LIDOCAINE 1% (LOCAL ANESTH.) PF 5ml SDV ID ONE (09:45)
== END 2019-04-20 10:43 | disposition home or self-care (01) ==
LOC: ER 08:53
DX: M25.462 Effusion, left knee (principal); I11.0 Hypertensive heart disease with heart failure; I50.9 Heart failure, unspecified; E78.5 Hyperlipidemia, unspecified; I25.2 Old myocardial infarction; F17.210 Nicotine dependence, cigarettes, uncomplicated; M19.90 Unspecified osteoarthritis, unspecified site; Z90.89 Acquired absence of other organs; Z98.61 Coronary angioplasty status; Z79.899 Other long term (current) drug therapy; Z88.6 Allergy status to analgesic agent; Z88.1 Allergy status to other antibiotic agents; Z88.8 Allergy status to other drugs, medicaments and biological substances
CPT/HCPCS: 20610; 83986; 87205; 89051; 96372; 99284; J1885; J3301

== ENCOUNTER → 2019-04-25 | Outpatient (CLI) | payer OTHER, MEDICAID ==
[2019-04-25 16:18] LABS: Albumin 3.7 g/dL (3.4-5.0); Calcium 9.3 mg/dL (8.5-10.1); Potassium 4.1 mmol/L (3.5-5.1)
[2019-04-25 16:27] LABS: BUN/Creatinine Ratio 13.4; Bilirubin, Total 0.3 mg/dL (0.2-1.0); CRP High Sensitivity 1.56 mg/dL (< 0.3); Total Protein 6.9 g/dL (6.4-8.2)
[2019-04-25 16:45] LABS: Basophils # (auto) 0.1 uL; Basophils % (auto) 0.7 % (0.0-2.0); Eosinophils # (auto) 0.1 uL; Neutrophils # (auto) 5.2 uL
[2019-04-25 16:47] LABS: Eosinophils % (auto) 1.1 % (0.0-7.0); Hematocrit 34.6 % (41.0-53.0); Hemoglobin 10.8 g/dL (13.5-17.5); Lymphocytes # (auto) 2.1 uL; Lymphocytes % (auto) 26.2 % (10.0-50.0); Mean Corpuscular Hemoglobin 25.2 pg (28.0-32.0); Mean Corpuscular Hgb Conc. 31.3 g/dL (32.0-36.0); Mean Corpuscular Volume 80.4 fL (80.0-100.0); Monocytes # (auto) 0.6 uL; Monocytes % (auto) 7.4 % (0.0-12.0); Neutrophils % (auto) 64.6 % (37.0-80.0); Platelet Count (auto) 473 10^3/uL (140-450); Red Cell Distribution Width 17.4 % (11.8-14.3); White Blood Cell 8.1 10^3/uL (4.4-10.8)
[2019-04-27 09:26] LABS: Hepatitis B Surface Antibody Negative
[2019-04-27 10:36] LABS: Hepatitis B Core Total AB Negative; Hepatitis B Surface Antigen Negative (Negative)
== END | disposition home or self-care (01) ==
LOC: LAB 15:13
DX: Z51.81 Encounter for therapeutic drug level monitoring (principal); M15.4 Erosive (osteo)arthritis; M06.9 Rheumatoid arthritis, unspecified; Z79.899 Other long term (current) drug therapy
CPT/HCPCS: 36415; 80053; 85025; 85652; 86141; 86200; 86431; 86704; 86706; 87340

== ENCOUNTER → 2019-05-15 | Outpatient (CLI) | payer OTHER, MEDICAID | END | disposition home or self-care (01) | LOC: LAB 13:08 | PROVIDERS: ATTEND Internal Medicine | DX: E11.9 Type 2 diabetes mellitus without complications (principal); I11.0 Hypertensive heart disease with heart failure; I50.9 Heart failure, unspecified | CPT/HCPCS: 82043 ==

== ENCOUNTER 2019-06-12 09:13 | Day surgery (SDC) | payer OTHER, MEDICAID ==
[2019-06-09 12:12] LABS: Basophils # (auto) 0.1 uL; Basophils % (auto) 1.2 % (0.0-2.0); Eosinophils # (auto) 0.1 uL; Hematocrit 29.9 % (41.0-53.0); Hemoglobin 9.3 g/dL (13.5-17.5); Lymphocytes # (auto) 1.6 uL; Lymphocytes % (auto) 19.1 % (10.0-50.0); Mean Corpuscular Hemoglobin 24.6 pg (28.0-32.0); Monocytes # (auto) 0.8 uL; Monocytes % (auto) 8.9 % (0.0-12.0); Neutrophils # (auto) 5.9 uL; Red Cell Distribution Width 17.7 % (11.8-14.3); White Blood Cell 8.5 10^3/uL (4.4-10.8)
[2019-06-09 12:14] LABS: Mean Corpuscular Hgb Conc. 31.2 g/dL (32.0-36.0); Mean Corpuscular Volume 78.8 fL (80.0-100.0); Neutrophils % (auto) 69.8 % (37.0-80.0); Platelet Count (auto) 412 10^3/uL (140-450)
[2019-06-09 12:24] LABS: INR 0.93 (0.9-1.15); Partial Thromboplastin Time 28.9 sec (23.64-32.05)
[2019-06-09 12:25] LABS: Urine Bacteria NONE SEEN /hpf (None Seen); Urine Blood Negative /uL (Negative); Urine Hyaline Cast FEW /lpf (0 - 2); Urine Specific Gravity 1.003 (1.001-1.035); Urine WBC <1 /hpf (0 - 3)
[2019-06-09 12:38] LABS: Albumin 3.8 g/dL (3.4-5.0); Calcium 8.4 mg/dL (8.5-10.1)
[2019-06-09 12:42] LABS: BUN/Creatinine Ratio 22.2; Bilirubin, Total 0.5 mg/dL (0.2-1.0); Total Protein 6.8 g/dL (6.4-8.2)
[~2019-06-12] VITALS: Ht 157.5 cm; Wt 49.9 kg
[~2019-06-12 09:13] MED LIST changes: +ALBU0.08 HHN; +ALBUAER3 IN; +ASPI-404 PO; -ASPI81TA27 PO; +FEXO24TA10 PO; -FEXO24TA9 PO; +FURO1TAB31 PO; -FURO40TA PO; -SITA50TA PO
[2019-06-12] MEDS ORDERED: PROPOFOL 10 MG/ML 20 ML IV ONE ×2 (09:14→10:22)
[2019-06-12] MEDS ORDERED: LIDOCAINE 1% HCL (LOCAL ANESTH.) INJ 20ML MDV ONE (10:19)
[2019-06-12] MEDS ORDERED: MIDAZOLAM HCL 1MG/1ML-2 ML VIAL ONE (10:21)
[2019-06-12] MEDS ORDERED: METOCLOPRAMIDE HCL 5MG/ml INJ 2ml VIAL ONE (10:21)
[2019-06-12] MEDS ORDERED: GLYCOPYRROLATE 0.2 MG/ML 1ML VIAL ONE (10:21)
[2019-06-12] MEDS ORDERED: diphenhdrAMINE HCL 50 MG/1 ML VL ONE (10:21)
[2019-06-12] MEDS ORDERED: ONDANSETRON HCL 4 MG/2 ML VIAL IV PRN (10:45)
[2019-06-12] MEDS ORDERED: LIDOCAINE-2% MPF SDV 5 ML IJ ONE (10:55)
[2019-06-12] MEDS ORDERED: METOCLOPRAMIDE HCL 5MG/ml INJ 2ml VIAL IV ONE (10:55)
[2019-06-12 12:01] VITALS: BP 123/64
== END 2019-06-12 12:15 | disposition home or self-care (01) ==
LOC: GI 09:13
PROVIDERS: ATTEND Internal Medicine Gastroenterology
DX: K22.8 Other specified diseases of esophagus (principal); K51.80 Other ulcerative colitis without complications; E11.42 Type 2 diabetes mellitus with diabetic polyneuropathy; E11.319 Type 2 diabetes mellitus with unspecified diabetic retinopathy without macular edema; J44.9 Chronic obstructive pulmonary disease, unspecified; M06.9 Rheumatoid arthritis, unspecified; K21.0 Gastro-esophageal reflux disease with esophagitis; E66.9 Obesity, unspecified; I11.0 Hypertensive heart disease with heart failure; I50.9 Heart failure, unspecified; I25.10 Atherosclerotic heart disease of native coronary artery without angina pectoris; I25.2 Old myocardial infarction; D64.9 Anemia, unspecified; F17.210 Nicotine dependence, cigarettes, uncomplicated; Z86.010 Personal history of colon polyps; Z68.20 Body mass index [BMI] 20.0-20.9, adult; Z79.84 Long term (current) use of oral hypoglycemic drugs; Z79.899 Other long term (current) drug therapy; Z90.49 Acquired absence of other specified parts of digestive tract; Z95.818 Presence of other cardiac implants and grafts; Z88.1 Allergy status to other antibiotic agents; Z88.2 Allergy status to sulfonamides; Z88.5 Allergy status to narcotic agent; Z88.8 Allergy status to other drugs, medicaments and biological substances; Z91.048 Other nonmedicinal substance allergy status; Z86.19 Personal history of other infectious and parasitic diseases
CPT/HCPCS: 36415; 43235; 43450; 80053; 81001; 82962; 85025; 85610; 85730; J1200; J2001; J2250; J2704; J2765; J7030

== ENCOUNTER → 2019-07-10 | Outpatient (CLI) | payer OTHER, MEDICAID | END | disposition home or self-care (01) | LOC: LAB 15:07 | PROVIDERS: ATTEND Internal Medicine | DX: E11.9 Type 2 diabetes mellitus without complications (principal); I11.0 Hypertensive heart disease with heart failure; I50.9 Heart failure, unspecified | CPT/HCPCS: 36415; 83036 ==

== ENCOUNTER 2019-08-02 12:36 | Inpatient (IN) | payer OTHER, MEDICAID ==
[~2019-08-02] VITALS: Ht 157.5 cm; Wt 55.1 kg
[2019-08-02 13:38] LABS: Basophils # (auto) 0.1 uL; Eosinophils # (auto) 0.1 uL; Eosinophils % (auto) 0.9 % (0.0-7.0); Hematocrit 27.2 % (41.0-53.0); Hemoglobin 8.8 g/dL (13.5-17.5); Lymphocytes # (auto) 1.7 uL; Lymphocytes % (auto) 22.6 % (10.0-50.0); Mean Corpuscular Hemoglobin 25.3 pg (28.0-32.0); Mean Corpuscular Hgb Conc. 32.5 g/dL (32.0-36.0); Mean Corpuscular Volume 77.8 fL (80.0-100.0); Monocytes # (auto) 0.7 uL; Neutrophils # (auto) 4.8 uL; Neutrophils % (auto) 65.5 % (37.0-80.0); Platelet Count (auto) 367 10^3/uL (140-450); Red Blood Cells 3.49 10^6/uL (4.5-5.90); Red Cell Distribution Width 18.4 % (11.8-14.3); White Blood Cell 7.4 10^3/uL (4.4-10.8)
[2019-08-02] MEDS ORDERED: SODIUM CHLORIDE 0.9% 1,000 ML IV ONE (13:40)
[2019-08-02] MEDS ORDERED: SODIUM CHLORIDE 0.9% 500 ML IV ONE (13:40)
[2019-08-02] MEDS ORDERED: KETOROLAC TROMETH 30 MG/ML 1ML VIAL IV ONE (13:45)
[2019-08-02 13:50] LABS: Urine WBC None Seen /hpf (0 - 3)
[2019-08-02 13:51] LABS: Potassium 4.3 mmol/L (3.5-5.1)
[2019-08-02 13:58] LABS: Albumin 3.6 g/dL (3.4-5.0); BUN/Creatinine Ratio 14.1; Bilirubin, Total 0.3 mg/dL (0.2-1.0); Calcium 8.6 mg/dL (8.5-10.1); Total Protein 6.5 g/dL (6.4-8.2)
[2019-08-02 14:15] LABS: INR < 0.93 (0.9-1.15); Partial Thromboplastin Time 29.6 sec (23.64-32.05)
[2019-08-02 14:22] LABS: Urine Bacteria NONE SEEN /hpf (None Seen); Urine Blood Negative /uL (Negative); Urine Specific Gravity 1.004 (1.001-1.035)
[2019-08-02] MEDS ORDERED: cefTRIAXone 1GM/50ML D5W 50 ML IV ONE (17:30)
[2019-08-02] MEDS ORDERED: MORPHINE SULF INJ 2 MG/ML SYRINGE 1ML IV PRN ×2 (18:00)
[2019-08-02] MEDS ORDERED: NITROGLYCERIN 0.4 MG SL TAB SL PRN (18:00)
[2019-08-02] MEDS ORDERED: HYDROcodone-ACET 10/325MG TAB PO PRN (18:00)
[2019-08-02 18:20] VITALS: BP 133/65
--- NOTE | 2019-08-02 18:25 | NUR ---
MS admit from ER MARIBEL INIGUEZ admitted to tele/MS after SBAR received. Patient oriented to Britney Hedrick, primary RN, unit, room, bed, and unit policies regarding patient care and visiting hours. Patient weighed by bedscale and encouraged to call if they need something. All questions and concerns addressed, patient verbalized understanding. Note:
--- NOTE | 2019-08-02 18:45 | NUR ---
WOUND ADMISSION PHOTO IS TAKEN TO RT LOWER LEG
--- NOTE | 2019-08-02 18:55 | NUR ---
OUT WITH HOME SEAT WALKER WITH HIS TO SMOKE
[2019-08-02] MEDS: CLOPIDOGREL BISULFATE 75 MG TAB PO SCH (18:57)
--- NOTE | 2019-08-02 19:09 | NUR ---
PT IS BACK TO HIS ROOM, NO DISTRESS NOTED, CONTINUE MONITORING
--- NOTE | 2019-08-02 19:30 | NUR ---
Opening Shift Note Assumed care of patient, awake and alert x4. Patient denies pain at this time. Instructed on plan of care and to call for assistance as needed, patient verbalized understanding. Bed is locked in lowest position, side rials x 2 are up, call light is within reach, and bed alarm is on.
[2019-08-02 20:15] LABS: % Iron Saturation 3.9 % (20-55)
--- NOTE | 2019-08-02 21:58 | NUR ---
HOSPITALIST PAGED RE: DIABETIC MEDICATION Hospitalist paged regarding diabetic medications. Patient reports he has a history of diabetes and takes Lantus 12 units every night and 1000mg of metformin every night and every morning. Patient is requesting to resume these two medications tonight. Patient is not on a sliding scale. Awaiting call back.
[2019-08-02 22:00] VITALS: BP 140/72
[2019-08-02] MEDS: ATORVASTATIN 20 MG TAB PO SCH (22:32)
[2019-08-02] MEDS: MONTELUKAST SODIUM 10 MG TAB PO SCH (22:32)
[2019-08-02] MEDS: GABAPENTIN 300 MG CAP PO SCH (22:33)
[2019-08-03] MEDS ORDERED: INSLANTI SC (02:17)
[2019-08-03 05:00] VITALS: BP 147/66
[2019-08-03] MEDS: GABAPENTIN 300 MG CAP PO SCH ×3 (06:54→21:32)
--- NOTE | 2019-08-03 08:00 | NUR ---
ASSESSMENT NOTE PATIENT IS RESTING IN BED COMFORTABLY, NO DISTRESS NOTED, ABLE TO SELF REPOSITION AND VERBALIS HIS DEMANDS, PAIN 0/10, AMBULATE WITH FRONT HOME WALKER NEEDED, CALL LIGHT WITHIN REACH.
[2019-08-03] MEDS: FOLIC ACID 1 MG TAB PO SCH (08:45)
[2019-08-03] MEDS: ASPirin-EC 81 mg tab PO SCH (08:45)
[2019-08-03] MEDS: cefTRIAXone 1GM/50ML D5W 50 ML IV SCH (08:45)
[2019-08-03 09:00] VITALS: BP 155/71
--- NOTE | 2019-08-03 09:30 | NUR ---
PATIENT LEFT OUT TO SMOKE.
--- NOTE | 2019-08-03 09:45 | NUR ---
PT IS BACK TO HIS ROOM, NO DISTRESS NOTED
--- NOTE | 2019-08-03 12:36 | NUR ---
DR SANCHEZ IS HERE FOLLOWING UP ON PT
[2019-08-03 13:00] VITALS: BP 149/77
--- NOTE | 2019-08-03 15:30 | NUR ---
FAMILY PATIENT'S AT BED SIDE
--- NOTE | 2019-08-03 16:00 | NUR ---
OUT TO SMOKE WITH HIS , NO DISTRESS NOTED
[2019-08-03 17:00] VITALS: BP 154/74
[2019-08-03] MEDS: CLOPIDOGREL BISULFATE 75 MG TAB PO SCH (18:06)
--- NOTE | 2019-08-03 18:39 | NUR ---
PT CONTINEU STABLE, CONTINUE MONITORING
--- NOTE | 2019-08-03 19:10 | NUR ---
Opening Shift Note Assumed care of patient, awake and alert x4. No S/S of distress/SOB or pain. Walker is next to bedside and within reach. Call light is within reach, side rails up x2, bed is in lowest position. Instructed on POC and to call for assist PRN. All questions and concerns answered, will continue to monitor for changes Q1hr and PRN.
[2019-08-03 21:00] VITALS: BP 154/69
[2019-08-03] MEDS: cloNIDine HCL 0.1 MG TAB PO SCH (21:32)
[2019-08-03] MEDS: MONTELUKAST SODIUM 10 MG TAB PO SCH (21:32)
[2019-08-03] MEDS: ATORVASTATIN 20 MG TAB PO SCH (21:32)
--- NOTE | 2019-08-03 22:32 | NUR ---
BP reassessed It is now 115/63 mmHg. Call light is within reach. Will continue to monitor.
[2019-08-04 05:00] VITALS: BP 149/65
[2019-08-04] MEDS: GABAPENTIN 300 MG CAP PO SCH (06:04)
--- NOTE | 2019-08-04 07:30 | NUR ---
Opening Shift Note Assumed care of patient, awake and alert. No S/S of distress/SOB or pain. Instructed on POC and to call for assist PRN, will continue to monitor for changes Q1hr and PRN.
[2019-08-04 09:00] VITALS: BP 143/67
[2019-08-04] MEDS: FOLIC ACID 1 MG TAB PO SCH (09:55)
[2019-08-04] MEDS: cefTRIAXone 1GM/50ML D5W 50 ML IV SCH (09:55)
[2019-08-04] MEDS: ASPirin-EC 81 mg tab PO SCH (09:55)
[2019-08-04] MEDS: cloNIDine HCL 0.1 MG TAB PO SCH (09:56)
[2019-08-04 11:13] VITALS: BP 143/67
--- NOTE | 2019-08-04 11:21 | NUR ---
assessment Patient was discharged prior to being assessed. Addendum: 08/04/19 at 1423 by Abbey CREWS Amended: Links added.
--- NOTE | 2019-08-04 11:36 | NUR ---
Discharge instructions given as ordered. Encourage to follow up with PMD as instructed. All questions and concerns addressed. Patient verbalized understanding. IV removed with catheter intact, pressure dressing applied. Patient taken to vehicle via wheelchair with all personal belongings, accompanied by staff and family member. No distress noted at time of departure.
[2019-08-04] MEDS ORDERED: GABAPENTIN 300 MG CAP PO SCH (22:00)
== END 2019-08-04 11:36 | disposition home or self-care (01) | DRG 603 ==
LOC: ER 12:36 → EAST 12:37
PROVIDERS: ADMIT Nurse Practitioner Acute Care; ATTEND Family Medicine
DX: L03.115 Cellulitis of right lower limb (principal); L97.819 Non-pressure chronic ulcer of other part of right lower leg with unspecified severity; S81.801A Unspecified open wound, right lower leg, initial encounter; M06.9 Rheumatoid arthritis, unspecified; E78.5 Hyperlipidemia, unspecified; D50.9 Iron deficiency anemia, unspecified; I50.9 Heart failure, unspecified; K21.9 Gastro-esophageal reflux disease without esophagitis; E78.00 Pure hypercholesterolemia, unspecified; F17.210 Nicotine dependence, cigarettes, uncomplicated; J45.909 Unspecified asthma, uncomplicated; X58.XXXA Exposure to other specified factors, initial encounter; E11.42 Type 2 diabetes mellitus with diabetic polyneuropathy; I25.10 Atherosclerotic heart disease of native coronary artery without angina pectoris; I11.0 Hypertensive heart disease with heart failure; M17.11 Unilateral primary osteoarthritis, right knee; Z86.73 Personal history of transient ischemic attack (TIA), and cerebral infarction without residual deficits; Z87.11 Personal history of peptic ulcer disease; Z79.899 Other long term (current) drug therapy; Z79.51 Long term (current) use of inhaled steroids; Z95.5 Presence of coronary angioplasty implant and graft; Z80.0 Family history of malignant neoplasm of digestive organs; Z83.3 Family history of diabetes mellitus; Y93.89 Activity, other specified; Y92.89 Other specified places as the place of occurrence of the external cause; Y99.8 Other external cause status
CPT/HCPCS: 36415; 71045; 73700; 80053; 81001; 82962; 83540; 83550; 83735; 85025; 85045; 85610; 85730; 87205; 93005; 93971; G0378; J0696; J1885

== ENCOUNTER → 2019-08-08 | Outpatient (CLI) | payer OTHER, MEDICAID ==
[~2019-08-08] MED LIST changes: -FLUT110A IN; -FURO1TAB31 PO; +INSLANTI SC; -MESA800T OR
== END | disposition home or self-care (01) ==
LOC: LAB 15:48
PROVIDERS: ATTEND Internal Medicine
DX: S81.801D Unspecified open wound, right lower leg, subsequent encounter (principal); X58.XXXD Exposure to other specified factors, subsequent encounter
CPT/HCPCS: 87205

== ENCOUNTER 2019-12-01 16:36 | Inpatient (IN) | payer OTHER, MEDICAID ==
[~2019-12-01] VITALS: Ht 172.7 cm; Wt 52.9 kg
[~2019-12-01 16:36] MED LIST changes: +MAGN400T40 PO; -MAGN400T5 PO
[2019-12-01 18:42] LABS: Basophils # (auto) 0 uL; Basophils % (auto) 0.3 % (0.0-2.0); Eosinophils # (auto) 0.1 uL; Eosinophils % (auto) 0.5 % (0.0-7.0); Hematocrit 24.4 % (41.0-53.0); Hemoglobin 7.5 g/dL (13.5-17.5); Lymphocytes # (auto) 1.2 uL; Lymphocytes % (auto) 8.7 % (10.0-50.0); Mean Corpuscular Hemoglobin 25.2 pg (28.0-32.0); Mean Corpuscular Hgb Conc. 30.6 g/dL (32.0-36.0); Mean Corpuscular Volume 82.3 fL (80.0-100.0); Monocytes # (auto) 0.6 uL; Monocytes % (auto) 4.5 % (0.0-12.0); Neutrophils # (auto) 11.9 uL; Nucleated Red Blood Cells % 0.1 %; Platelet Count (auto) 539 10^3/uL (140-450); Red Blood Cells 2.97 10^6/uL (4.5-5.90); White Blood Cell 13.8 10^3/uL (4.4-10.8)
[2019-12-01 18:56] LABS: Alanine Aminotransferase 15 U/L (16-61); Albumin 2.2 g/dL (3.4-5.0); Anion Gap 9 (5-15); Aspartate Aminotransferase 12 U/L (15-37); BUN/Creatinine Ratio 35.6; Blood Urea Nitrogen 42 mg/dL (7-18); Calcium 7.4 mg/dL (8.5-10.1); Carbon Dioxide 22 mmol/L (21-32); Chloride 100 mmol/L (98-107); GFR African American 77 mL/min; GFR Non-African American 64 mL/min; Glucose 131 mg/dL (74-106); Magnesium 2.4 mg/dL (1.6-2.6); Potassium 4.3 mmol/L (3.5-5.1); Sodium 131 mmol/L (136-145)
[2019-12-01 18:59] LABS: Alkaline Phosphatase 76 U/L (45-117); Bilirubin, Total 0.3 mg/dL (0.2-1.0); Total Protein 5.8 g/dL (6.4-8.2)
[2019-12-01 19:27] LABS: INR 0.94 (0.9-1.15); Partial Thromboplastin Time 30.4 sec (23.64-32.05)
[2019-12-01] MEDS ORDERED: LEVOFLOXACIN 500MG 100 ML IV ONE (21:00)
[2019-12-01] MEDS ORDERED: DEXTROSE (50%) 50ML SYRG IV PRN (21:30)
[2019-12-01] MEDS ORDERED: ACETAMINOPHEN 325 MG TAB PO PRN (21:30)
[2019-12-01] MEDS ORDERED: ALBUTEROL SULF 2.5 MG/0.5ML(0.5%) NEB SOLN NEB PRN (21:30)
[2019-12-01] MEDS ORDERED: ONDANSETRON HCL 4 MG/2 ML VIAL IV PRN (21:30)
[2019-12-01] MEDS ORDERED: MORPHINE SULF INJ 2 MG/ML SYRINGE 1ML IV PRN (21:45)
[2019-12-01] MEDS ORDERED: NITROGLYCERIN 0.4 MG SL TAB SL PRN (21:45)
[2019-12-01] MEDS: SODIUM CHLORIDE 0.9% 1,000 ML IV SCH (21:55)
[2019-12-01] MEDS: MONTELUKAST SODIUM 10 MG TAB PO SCH (22:11)
[2019-12-01] MEDS: LEVOFLOXACIN 750MG 150 ML IV SCH (22:11)
--- NOTE | 2019-12-01 22:59 | NUR ---
Telemetry admit from ER MARIBEL INIGUEZ admitted to Telemetry unit. Patient oriented to JAMIE JONES RN primary RN, unit, room, bed, and unit policies regarding patient care and visiting hours. Patient now on continuous telemetry monitoring, tele box # 75 and telemetry reading on arrival to unit is sinus rhythm with bundle branch block. Patient weighed by bedscale and encouraged to call if they need something. All questions and concerns addressed, patient verbalized understanding. Will round every hour and as needed and continue to monitor.
[2019-12-01] MEDS: ACCU-CHEK COMFORT CURVE STRIP VI SCH (23:55)
[2019-12-01] MEDS: InsuLIN REG 1unit/0.01ml Soln (100units/ml) SC SCH (23:55)
[2019-12-02] VITALS (7 sets, daily range): BP systolic 102–149; BP diastolic 47–69
--- NOTE | 2019-12-02 01:00 | NUR ---
Respiratory note: PT ASSESSED FOR PRN MED NEB TX. HR 63, RR 14, SPO2 96% ON RA. NO SIGNS OF ANY RESPIRATORY DISTRESS NOTED. ADVISED PT TO CALL IF TX IS NEEDED.
[2019-12-02 06:43] LABS: Basophils # (auto) 0 uL; Basophils % (auto) 0.2 % (0.0-2.0); Eosinophils # (auto) 0.1 uL; Hemoglobin 7.4 g/dL (13.5-17.5); Lymphocytes # (auto) 1.1 uL; Monocytes # (auto) 0.6 uL
[2019-12-02] MEDS: ACCU-CHEK COMFORT CURVE STRIP VI SCH ×3 (06:44→18:55)
[2019-12-02] MEDS: InsuLIN REG 1unit/0.01ml Soln (100units/ml) SC SCH ×3 (06:44→18:00)
[2019-12-02 06:45] LABS: Eosinophils % (auto) 0.9 % (0.0-7.0); Hematocrit 24.3 % (41.0-53.0); Lymphocytes % (auto) 9.7 % (10.0-50.0); Mean Corpuscular Hemoglobin 25.4 pg (28.0-32.0); Mean Corpuscular Hgb Conc. 30.6 g/dL (32.0-36.0); Monocytes % (auto) 5.6 % (0.0-12.0); Neutrophils # (auto) 9.4 uL; Neutrophils % (auto) 83.6 % (37.0-80.0); Nucleated Red Blood Cells % 0.1 %; Platelet Count (auto) 530 10^3/uL (140-450); Red Blood Cells 2.93 10^6/uL (4.5-5.90); White Blood Cell 11.3 10^3/uL (4.4-10.8)
[2019-12-02 06:59] LABS: BUN/Creatinine Ratio 42.9; Calcium 7.2 mg/dL (8.5-10.1)
[2019-12-02 07:08] LABS: Red Cell Distribution Width 20.9 % (11.8-14.3)
--- NOTE | 2019-12-02 07:15 | NUR ---
Closing Note Patient lying in bed, awake and alert. No s/s of distress. Bed in lowest locked position, side rails up x2, call light within reach, bed alarm on. Care endorsed to dayshift RN.
--- NOTE | 2019-12-02 07:15 | NUR ---
Opening Shift Note Assumed care of patient, awake and alert. No S/S of distress/SOB or pain. Instructed on POC and to call for assist PRN, will continue to monitor for changes Q1hr and PRN.
--- NOTE | 2019-12-02 07:22 | NUR ---
AIR MATTRESS: Air mattress ordered at [facility], Ref# [id number]; Call [facility] if needed to follow up at [phone]. Addendum: 12/02/19 at 0723 by Huyen Sofia RN Amended: Links added.
--- NOTE | 2019-12-02 07:28 | NUR ---
PT ASSESSED FOR PRN HHN TX. PT IS ON ROOM AIR, SPO2 91%, NO RESPIRATORY DISTRESS. TX NOT INDICATED.
[2019-12-02] MEDS: PANTOPRAZOLE 40 MG TAB PO SCH (09:02)
[2019-12-02] MEDS ORDERED: ENOXAPARIN SOD 40 MG/0.4 ML SYRINGE SC SCH (10:00)
--- NOTE | 2019-12-02 10:30 | NUR ---
food service specialist at bedside.
[2019-12-02] MEDS: SODIUM CHLORIDE 0.9% 1,000 ML IV SCH (10:50)
--- NOTE | 2019-12-02 10:56 | NUR ---
WOUND CARE NOTE: Wound care into see patient per wound care request regarding sacral wound that are noted present on admission. Vance nurse took photographs of patient's wound upon admission for reference. Patient is 74 years old male with admitting diagnosis of Community Acquired Pneumonia. Patient with history of DM, Htn, CVA. Patient is resting in bed in Rm. 290A. Patient is awake, alert and follow simple direction. He's able to assist in turning and repositioning. His Honorio score is 10. Patient is in no stated pain at this time, and he appears to b in no pain using Driscoll Staley Faces Pain Scale. Patient recently admitted to [facility] on 11/16/19 for Pna with Sepsis and recently discharged home on 11/29/19. Patient came in with large DTI to sacrum that evolved to open full thickness wound. Skin/wound assessment done with the assistance of patient's nurse, JOSE Wu. Noted patient's sacrum has 4.5 x8.5cm open, evolving DTI (Deep Tissue Injury). Wound bed is red with granulation tissue noted with yellow slough, alison wound is bright and dark red, minimal serous drainage noted, no odor noted. Cleansed patient's sacrum with wound cleanser,patted dry with gauze, applied Thera honey gauze and covered wound with Opti foam sacral dressing. Patient's at bedside, educated on wound care verbally and by demonstration. Patient's BLE has brown hemosiderin staining and scabbed abrasion noted to his Rt lateral ankle/foot; area is clean and dry,left open to air. Patient tolerated well, repositioned for comfort facing his Lt side, redistributed pressure points with pillows. Patient's and JOSE Wu at bedside. RECOMMENDATION: Nursing to continue with Daily/PRN dressing change to sacral wound and BID/PRN cleaning and application Barrier cream to distal buttocks and perineum per MD order, Dietary consult,frequent turning and repositioning schedule as condition permits, redistribute pressure points with pillows, air mattress (ordered), elevate heels on pillows, continue monitoring by wound care while patient is hospitalized. Addendum: 12/02/19 at 1446 by Huyen Sofia RN Amended: Links added.
--- NOTE | 2019-12-02 15:57 | NUR ---
Patient placed specialty on air mattress.
--- NOTE | 2019-12-02 18:27 | NUR ---
ATTEMPTED SWALLOW EVALUATION. REFUSED. SUGGESTED CHANGE TO MECHANICAL SOFT DUE TO REPORTEDSIGNS AND SYMPTOMS OF DYSPHAGIA. REPORTS SHE WILL CHOP PATIENT'S FOOD. NO EVALUATION AT THIS TIME.
--- NOTE | 2019-12-02 19:35 | NUR ---
Opening Shift Note Assumed care of patient, eyes closed, respirations even and unlabored, appears asleep. Patient resting on specialty mattress, tolerating well. No S/S of distress/SOB or pain. Bed in lowest locked position, side rails up x2, call light within reach, bed alarm on. Instructed on POC and to call for assist PRN, will continue to monitor for changes Q1hr and PRN.
[2019-12-02] MEDS: MONTELUKAST SODIUM 10 MG TAB PO SCH (21:53)
[2019-12-02] MEDS: LEVOFLOXACIN 750MG 150 ML IV SCH (21:53)
[2019-12-02] MEDS: HYDROcodone-ACET 5/325MG TAB PO PRN (21:53)
--- NOTE | 2019-12-02 22:21 | NUR ---
PT ASSESSED FOR PRN MED NEB TX. SPO2 96% ON RA. PT DENIES ANY RESPIRATORY DISTRESS. NO TX INDICATED AT THIS TIME. WILL CONTINUE TO MONITOR.
[2019-12-02 22:42] LABS: Urine Bacteria FEW /hpf (None Seen); Urine Blood 2+ /uL (Negative); Urine Hyaline Cast FEW /lpf (0 - 2); Urine Specific Gravity 1.012 (1.001-1.035); Urine WBC 5 /hpf (0 - 3)
[2019-12-03] MEDS: SODIUM CHLORIDE 0.9% 1,000 ML IV SCH (00:10)
[2019-12-03] MEDS: ACCU-CHEK COMFORT CURVE STRIP VI SCH ×5 (00:25→23:27)
[2019-12-03] MEDS: InsuLIN REG 1unit/0.01ml Soln (100units/ml) SC SCH ×4 (00:25→18:00)
[2019-12-03 05:00] VITALS: BP 153/67
--- NOTE | 2019-12-03 05:00 | NUR ---
Wound Care Sacral wound with wound cleanser and patted dry with gauze. Thera honey gel applied and wound covered with abdominal pad. Patient tolerated well. Patient being turned Q2H. Will continue to monitor.
[2019-12-03] MEDS: HYDROcodone-ACET 5/325MG TAB PO PRN ×2 (05:26→14:48)
[2019-12-03 06:28] LABS: Basophils # (auto) 0 uL; Eosinophils # (auto) 0.1 uL; Monocytes # (auto) 0.7 uL
[2019-12-03 06:31] LABS: Basophils % (auto) 0.3 % (0.0-2.0); Eosinophils % (auto) 0.8 % (0.0-7.0); Hematocrit 25.9 % (41.0-53.0); Lymphocytes # (auto) 0.9 uL; Lymphocytes % (auto) 8.8 % (10.0-50.0); Mean Corpuscular Hemoglobin 25.3 pg (28.0-32.0); Mean Corpuscular Hgb Conc. 30.8 g/dL (32.0-36.0); Mean Corpuscular Volume 82.2 fL (80.0-100.0); Monocytes % (auto) 7.2 % (0.0-12.0); Neutrophils # (auto) 8.2 uL; Neutrophils % (auto) 82.9 % (37.0-80.0); Platelet Count (auto) 543 10^3/uL (140-450); Red Blood Cells 3.16 10^6/uL (4.5-5.90); White Blood Cell 9.9 10^3/uL (4.4-10.8)
[2019-12-03 06:33] LABS: Red Cell Distribution Width 22.3 % (11.8-14.3)
[2019-12-03 06:49] LABS: Calcium 7.4 mg/dL (8.5-10.1); Potassium 3.6 mmol/L (3.5-5.1)
[2019-12-03 06:53] LABS: BUN/Creatinine Ratio 36.7; Bilirubin, Total 0.4 mg/dL (0.2-1.0); Total Protein 5.5 g/dL (6.4-8.2)
--- NOTE | 2019-12-03 06:53 | NUR ---
Closing Note Patient lying in bed, awake and alert, on bedpan for reported bowel movement. SUPERVISOR [employer] aware of pending stool sample. No s/s of distress. Will endorse care to dayshift RN.
--- NOTE | 2019-12-03 07:30 | NUR ---
Opening Shift Note RECEIVED REPORT FROM NOC RN. Assumed care of patient, awake and alert. No S/S of distress/SOB or pain. BED IN LOWEST, LOCKED POSITION WITH SIDERAILS UP x2 AND CALL LIGHT WITHIN REACH. Instructed on POC and to call for assist PRN, will continue to monitor for changes Q1hr and PRN.
[2019-12-03 09:00] VITALS: BP 144/60
[2019-12-03] MEDS: PANTOPRAZOLE 40 MG TAB PO SCH (09:47)
[2019-12-03] MEDS ORDERED: ALPRAZolam 0.5 MG TAB PO PRN (10:15)
[2019-12-03] MEDS: Glucerna Carbsteady SHAKE Vanilla 8oz PO SCH ×2 (12:19→18:04)
[2019-12-03] MEDS: SOD CHL 0.9%/ KCL 20MEQ 1,000 ML IV SCH (12:19)
[2019-12-03] MEDS: MORPHINE SULF INJ 2 MG/ML SYRINGE 1ML IV PRN ×2 (12:30→20:24)
--- NOTE | 2019-12-03 12:44 | NUR ---
NUTRITION CONSULT/ASSESSMENT NOTES Please refer to link notes of nutrition screen form filed under the intervention section of the plan of care for further details. Est. Needs based on IBW (73 kg): 1750 kcal to 2100 kcal (25-30 kcal/kgIBW), 73 gms to 91 gms pro (1.0-1.3 gms/kgIBW d/t severe hypoalbuminemia, wound healing). Will continue to monitor pertinent labs and reassess nutrient need prn Thank you for this consult. Addendum: 12/03/19 at [address] Amended: Links added.
[2019-12-03 13:00] VITALS: BP 139/57
--- NOTE | 2019-12-03 13:30 | NUR ---
PT REFUSED P.T. BECAUSE OF BACK PAIN.
--- NOTE | 2019-12-03 15:00 | NUR ---
1500- Patient states he no longer wants to be turned onto his sides because it hurts his hips and he states that he is well aware if he stays on his back that his bed sore will not properly heal and could become worse.-EW
--- NOTE | 2019-12-03 16:57 | NUR ---
NIRMAL BOOTS APPLIED TO BILATERAL FEET. PATIENT EDUCATED TO THE NEED OF FREQUENT TURNING. PATIENT HAS AGREED TO BE TURNED Q2H WHILE AWAKE.
[2019-12-03] MEDS: TAMSULOSIN HYDROCHLORIDE 0.4 MG CAP PO SCH (18:04)
--- NOTE | 2019-12-03 18:18 | NUR ---
IV insertion IV access obtained, via clean sterile technique by inserting 22 gauge catheter at RIGHT FOREARM after 1 attempt(s). IV secured properly. No trauma to site. Patient tolerated well. PREVIOUS IV TO RIGHT ANTECUBITAL WAS ACCIDENTALLY PULLED OUT BY PATIENT.
--- NOTE | 2019-12-03 19:50 | NUR ---
Opening Shift Note Assumed care of patient, awake and alert. Patient resting on specialty mattress, tolerating well. No S/S of distress/SOB. Patient reporting 10/10 generalized pain, will medicate as ordered. Bed in lowest locked position, side rails up x2, call light within reach, bed alarm on. Veronica removed at this time, patient refusing to have them replaced. Patient educated on importance of veronica boots and turning every two hours, patient verbalized understanding. Patient agreed to every two hour turns, requesting to have veronica boots reapplied in AM. Feet and ankles offloaded with pillow, will continue to monitor. Instructed on POC and to call for assist PRN, will continue to monitor for changes Q1hr and PRN.
[2019-12-03 22:00] VITALS: BP 166/78
--- NOTE | 2019-12-03 22:38 | NUR ---
Respiratory note: PT SEEN AND ASSESSED FOR PRN MED NEB TX AT 2238. TX NOT INDICATED AT THIS TIME. PT IS CURRENTLY SLEEPING WITH NO SIGNS OF RESPIRATORY DISTRESS. HR 83 RR 18 POX 95% ON ROOM AIR,.
[2019-12-03] MEDS: LEVOFLOXACIN 750MG 150 ML IV SCH (23:26)
[2019-12-03] MEDS: CARVEDILOL 3.125 MG TAB PO SCH (23:26)
[2019-12-03] MEDS: MONTELUKAST SODIUM 10 MG TAB PO SCH (23:27)
[2019-12-04] MEDS: InsuLIN REG 1unit/0.01ml Soln (100units/ml) SC SCH ×4 (01:00→18:00)
[2019-12-04 05:00] VITALS: BP 139/63
[2019-12-04] MEDS: MORPHINE SULF INJ 2 MG/ML SYRINGE 1ML IV PRN (06:42)
[2019-12-04] MEDS: ACCU-CHEK COMFORT CURVE STRIP VI SCH ×3 (06:43→18:05)
[2019-12-04] MEDS: SOD CHL 0.9%/ KCL 20MEQ 1,000 ML IV SCH (06:50)
--- NOTE | 2019-12-04 07:00 | NUR ---
Patient in bed, awake and alert, call light within reach. No s/s of distress. Veronica boots on and patient turned and positioned for comfort. Will endorse care to dayshift RN.
[2019-12-04 07:20] LABS: Hemoglobin 7.4 g/dL (13.5-17.5)
--- NOTE | 2019-12-04 07:20 | NUR ---
Respiratory note: PT ASSESSED FOR PRN MED NEB TX. PT DENIES ANY SOB AT THIS TIME. SP02 IS 97% ON R/A, HR 74 RR 18. B/S ARE DIM. PT INFORMED TO HAVE RT PAGED IF NEEDED.
[2019-12-04 07:22] LABS: Hematocrit 23.4 % (41.0-53.0)
--- NOTE | 2019-12-04 07:30 | NUR ---
Opening Shift Note RECEIVED REPORT FROM NOC RN. Assumed care of patient, awake and alert. No S/S of distress/SOB or pain. BED IN LOWEST, LOCKED POSIITON WITH SIDERAILS UP x2 AND CALL LIGHT WITHIN REACH. Instructed on POC and to call for assist PRN, will continue to monitor for changes Q1hr and PRN.
[2019-12-04 07:53] LABS: BUN/Creatinine Ratio 30.6; Calcium 7.5 mg/dL (8.5-10.1); Potassium 3.9 mmol/L (3.5-5.1)
[2019-12-04] MEDS: HYDROcodone-ACET 5/325MG TAB PO PRN ×2 (08:28→20:33)
[2019-12-04] MEDS: Glucerna Carbsteady SHAKE Vanilla 8oz PO SCH ×3 (08:28→18:04)
[2019-12-04 09:00] VITALS: BP 147/68
[2019-12-04] MEDS: CARVEDILOL 3.125 MG TAB PO SCH ×2 (09:37→21:52)
[2019-12-04] MEDS: PANTOPRAZOLE 40 MG TAB PO SCH (09:37)
[2019-12-04] MEDS ORDERED: LACTULOSE 20Gm/30ML SOLN PO ONE (09:45)
--- NOTE | 2019-12-04 10:30 | NUR ---
1030- have been reminding patient since initial patient round that he needs to alternate laying on his sides to relieve the pressure on back if he does not want a pillow. Patient is able to turn himself enough to relieve this pressure so he states he will try.-EW
[2019-12-04] MEDS ORDERED: FERROUS SULFATE 325 MG TAB PO ONE (12:00)
[2019-12-04 13:00] VITALS: BP 131/53
--- NOTE | 2019-12-04 15:14 | NUR ---
assessment Patient is a 74 year old male who is alert and oriented. Per patient prior to admission he lived home with his Dario and functioned with assistance since he was discharged last week. Per patient he came back to the hospital due to him being dizzy. Per patient he has a fww and wheelchair at home, but does not need to use them. Patient informed me his PCP is Dr Gaviria. I informed patient his post discharge needs to be determined after PT eval and prior to discharge. I informed patient he has a right to speak to a social service coordinator regarding all care. I informed patient he has a right to participate in any and all discharge planning. Patient does not have a POA and advanced directive. I have offered patient information on POA and advanced directives. I informed the patient the advantages and benefits of having an Advanced Directive. Patient verbalized understanding and agreed to discharge plan. Addendum: 12/04/19 at 1516 by Abbey CREWS Amended: Links added.
[2019-12-04 17:00] VITALS: BP 145/69
[2019-12-04] MEDS: TAMSULOSIN HYDROCHLORIDE 0.4 MG CAP PO SCH (18:09)
[2019-12-04] MEDS: FERROUS SULFATE 325 MG TAB PO SCH (18:09)
--- NOTE | 2019-12-04 21:22 | NUR ---
Respiratory note: PT SEEN AND ASSESSED FOR PRN MED NEB TX AT 2121. TX NOT INDICATED AT THIS TIME. PT IS CURRENTLY SLEEPING, NO DISTRESS NOTED AT THIS TIME. HR 76 RR 18 POX 96% ON ROOM AIR.
[2019-12-04] MEDS: LEVOFLOXACIN 750MG 150 ML IV SCH (21:51)
[2019-12-04] MEDS: MONTELUKAST SODIUM 10 MG TAB PO SCH (21:52)
[2019-12-04 22:28] VITALS: BP 141/60
[2019-12-05] MEDS: ACCU-CHEK COMFORT CURVE STRIP VI SCH ×5 (00:32→23:41)
[2019-12-05] MEDS: InsuLIN REG 1unit/0.01ml Soln (100units/ml) SC SCH ×5 (00:34→23:41)
[2019-12-05 01:31] VITALS: BP 141/60
--- NOTE | 2019-12-05 03:52 | NUR ---
Opening Shift Note Assumed care of patient, Patient asleep verbally awake and alert. No S/S of distress/SOB or pain. . Bed in lowest locked position, side rails up x2, call light within reach. Instructed on POC and to call for assist PRN, will continue to monitor for changes Q1hr and PRN.
--- NOTE | 2019-12-05 04:17 | NUR ---
pt called updated on plan of care, per pt she will be in this morning and wants to give her a bath
[2019-12-05] MEDS: MORPHINE SULF INJ 2 MG/ML SYRINGE 1ML IV PRN (05:11)
[2019-12-05 05:14] VITALS: BP 138/60
--- NOTE | 2019-12-05 07:05 | NUR ---
PT ASSESSED FOR PRN HHN TX. PT IS ON ROOM AIR, SPO2 95%, HR 82, RR 16. NO S/S OF RESPIRATORY DISTRESS. TX NOT INDICATED AT THIS TIME. WILL CONTINUE TO MONITOR.
[2019-12-05 09:00] VITALS: BP 144/65
[2019-12-05] MEDS: CARVEDILOL 3.125 MG TAB PO SCH ×2 (09:05→21:38)
[2019-12-05] MEDS: FERROUS SULFATE 325 MG TAB PO SCH ×2 (09:05→17:08)
[2019-12-05] MEDS: Glucerna Carbsteady SHAKE Vanilla 8oz PO SCH ×3 (09:05→17:09)
[2019-12-05] MEDS: PANTOPRAZOLE 40 MG TAB PO SCH ×2 (09:06→21:39)
[2019-12-05] MEDS: HYDROcodone-ACET 5/325MG TAB PO PRN ×3 (09:06→21:39)
--- NOTE | 2019-12-05 10:17 | NUR ---
md canseco and md lima rounded on aptient pt clear to go home after radiology removes drain
[2019-12-05 10:21] LABS: Lymphocytes # (auto) 0.5 uL
[2019-12-05 10:22] LABS: Basophils # (auto) 0 uL; Basophils % (auto) 0.5 % (0.0-2.0); Eosinophils # (auto) 0.2 uL; Eosinophils % (auto) 1.9 % (0.0-7.0); Hematocrit 24.4 % (41.0-53.0); Hemoglobin 7.6 g/dL (13.5-17.5); Lymphocytes % (auto) 5.9 % (10.0-50.0); Mean Corpuscular Hemoglobin 26.1 pg (28.0-32.0); Mean Corpuscular Hgb Conc. 31.1 g/dL (32.0-36.0); Mean Corpuscular Volume 83.7 fL (80.0-100.0); Monocytes # (auto) 0.8 uL; Monocytes % (auto) 9.6 % (0.0-12.0); Neutrophils # (auto) 6.8 uL; Neutrophils % (auto) 82.1 % (37.0-80.0); Platelet Count (auto) 449 10^3/uL (140-450); Red Blood Cells 2.91 10^6/uL (4.5-5.90); White Blood Cell 8.3 10^3/uL (4.4-10.8)
--- NOTE | 2019-12-05 11:37 | NUR ---
PT Patient refused to be OOB due to diarrhea but performed TRAN for both U&L extremities from bed. Addendum: 12/05/19 at 1138 by KARINE WYNN PTT Amended: Links added.
[2019-12-05 13:00] VITALS: BP 139/64
--- NOTE | 2019-12-05 15:04 | NUR ---
pt upset feels hes been asking about a sleeping pill and hasn't gotten one ordered, check emar pt does have temazepam ordered for insomnia advised pt to ask night RN when needed
[2019-12-05 16:55] VITALS: BP 131/58
[2019-12-05] MEDS: TAMSULOSIN HYDROCHLORIDE 0.4 MG CAP PO SCH (17:08)
--- NOTE | 2019-12-05 19:40 | NUR ---
Opening Shift Note Assumed care of patient, awake and alert. No S/S of distress/SOB or pain. Instructed on POC and to call for assist PRN. Bed in lowest locked position, call light within reach, side rails up x2, fall precautions in place. Will continue to monitor for changes Q1hr and PRN.
[2019-12-05] MEDS: LEVOFLOXACIN 750MG 150 ML IV SCH (21:38)
[2019-12-05] MEDS: MONTELUKAST SODIUM 10 MG TAB PO SCH (21:39)
[2019-12-05] MEDS: TEMAZEPAM 15 MG CAP PO PRN (21:40)
--- NOTE | 2019-12-05 21:44 | NUR ---
Respiratory note: PT SEEN AND ASSESSED FOR PRN MED NEB TX AT 2144. TX IS NOT INDICATED AT THIS TIME. WHEN I ASKED THE PT HOW HIS BREATHING WAS DOING, HE STATED THAT HE IS FINE AND DOESN'T NEED ANYTHING. NO DISTRESS NOTED AT THIS TIME, PT IN BED WATCHING TV. HR 84 RR 18 POX 97% ON ROOM AIR.
[2019-12-05 22:00] VITALS: BP 135/62
--- NOTE | 2019-12-06 02:35 | NUR ---
Dressing change Dressing change done to sacrum per wound care orders. Patient tolerated well. Continue care.
[2019-12-06] MEDS: HYDROcodone-ACET 5/325MG TAB PO PRN ×2 (03:43→18:15)
[2019-12-06 06:00] VITALS: BP 136/61
[2019-12-06] MEDS: InsuLIN REG 1unit/0.01ml Soln (100units/ml) SC SCH ×4 (06:00→23:52)
[2019-12-06] MEDS: ACCU-CHEK COMFORT CURVE STRIP VI SCH ×4 (06:06→23:51)
[2019-12-06 06:19] LABS: INR 0.94 (0.9-1.15)
--- NOTE | 2019-12-06 07:45 | NUR ---
Opening Shift Note Assumed care of patient, awake and alert. No S/S of distress/SOB. Patient complained of generalized body pain. Will follow up with pain medications. Instructed on POC and to call for assist PRN, will continue to monitor for changes Q1hr and PRN.
[2019-12-06] MEDS: Glucerna Carbsteady SHAKE Vanilla 8oz PO SCH ×3 (08:00→18:10)
[2019-12-06 09:00] VITALS: BP 142/62
[2019-12-06] MEDS: FERROUS SULFATE 325 MG TAB PO SCH ×2 (09:00→18:09)
[2019-12-06] MEDS: MORPHINE SULF INJ 2 MG/ML SYRINGE 1ML IV PRN ×2 (09:01→20:10)
[2019-12-06] MEDS: PANTOPRAZOLE 40 MG TAB PO SCH ×2 (09:01→21:52)
[2019-12-06] MEDS: CARVEDILOL 3.125 MG TAB PO SCH ×2 (09:01→21:52)
--- NOTE | 2019-12-06 11:15 | NUR ---
Off Unit Patient taken down to pre-op for procedure. Family members in attendance.
[2019-12-06] MEDS ORDERED: MIDAZOLAM HCL 1MG/1ML-2 ML VIAL ONE (11:47)
[2019-12-06] MEDS ORDERED: diphenhdrAMINE HCL 50 MG/1 ML VL ONE (11:47)
[2019-12-06] MEDS ORDERED: GLYCOPYRROLATE 0.2 MG/ML 1ML VIAL ONE (11:49)
[2019-12-06] MEDS ORDERED: LIDOCAINE 2% (LOCAL ANESTH.) PF 5ml SDV ONE (11:50)
[2019-12-06] MEDS ORDERED: PROPOFOL 10 MG/ML 20 ML IV ONE (11:50)
[2019-12-06] MEDS ORDERED: NALOXONE HCL 0.4 MG/ML VIAL IV PRN (12:15)
[2019-12-06] MEDS ORDERED: HYDROmorphone HCL 2 MG/ML VL IV PRN (12:15)
[2019-12-06] MEDS ORDERED: ONDANSETRON HCL 4 MG/2 ML VIAL IV PRN (12:15)
--- NOTE | 2019-12-06 12:30 | NUR ---
On Unit Patient returned to unit from recovery after having EGD done. Patient is awake but drowsy, family at bedside. Call light placed within reach and patient encouraged to call for assistance.
[2019-12-06 13:00] VITALS: BP 135/63
--- NOTE | 2019-12-06 14:00 | NUR ---
PT Patient refused to be OOB during PT visit but agreed to performed TRAN for both U&L extremities from bed. Addendum: 12/06/19 at 1402 by KARINE WYNN PTT Amended: Links added.
--- NOTE | 2019-12-06 14:40 | NUR ---
Respiratory note: PT SEEN AND ASSESSED FOR PRN MED NEB TX . TX IS NOT INDICATED AT THIS TIME. WHEN I ASKED THE PT HOW HIS BREATHING WAS DOING, HE STATED THAT HE IS FINE AND DOESN'T NEED ANYTHING. NO DISTRESS NOTED AT THIS TIME, PT IN BED WATCHING TV. HR 85 RR 16 POX 95% ON ROOM AIR.
[2019-12-06 17:00] VITALS: BP 147/71
[2019-12-06] MEDS: TAMSULOSIN HYDROCHLORIDE 0.4 MG CAP PO SCH (18:09)
--- NOTE | 2019-12-06 19:40 | NUR ---
PT ASSESSED FOR PRN MED NEB TX. SPO2 96% ON RA, HR 80. PT DENIES ANY RESPIRATORY DISTRESS. NO TX INDICATED. WILL CONTINUE TO MONITOR.
[2019-12-06] MEDS: LEVOFLOXACIN 750MG 150 ML IV SCH (21:51)
[2019-12-06] MEDS: TEMAZEPAM 15 MG CAP PO PRN (21:52)
[2019-12-06] MEDS: MONTELUKAST SODIUM 10 MG TAB PO SCH (21:52)
[2019-12-06 22:00] VITALS: BP 140/62
--- NOTE | 2019-12-07 00:50 | NUR ---
Report given Report given to Ilda GARCIA. Patient sleeping, even respirations noted. No distress noted at this time.
--- NOTE | 2019-12-07 01:00 | NUR ---
Received report from JOSE Johnson. Patient sleeping at this time and respirations even and unlabored. Bed in lowest position, call light within reach, will continue to monitor
[2019-12-07] MEDS: MORPHINE SULF INJ 2 MG/ML SYRINGE 1ML IV PRN (02:24)
[2019-12-07] MEDS: HYDROcodone-ACET 5/325MG TAB PO PRN ×3 (04:31→16:50)
[2019-12-07 06:00] VITALS: BP 133/65
[2019-12-07] MEDS: InsuLIN REG 1unit/0.01ml Soln (100units/ml) SC SCH ×2 (06:00→11:56)
[2019-12-07] MEDS: ACCU-CHEK COMFORT CURVE STRIP VI SCH ×2 (06:16→11:58)
[2019-12-07 07:30] LABS: Hematocrit 23.9 % (41.0-53.0); Hemoglobin 7.3 g/dL (13.5-17.5)
--- NOTE | 2019-12-07 08:00 | NUR ---
Respiratory note: ASSESSED PT FOR PRN MEDNEB TX. HR 85, RR 16, SPO2 94% ON 3LPM NASAL CANNULA. BREATH SOUNDS CLEAR/DIMINISHED THROUGHOUT. PT SITTING UP IN BED COMFORTABLY EATING BREAKFAST, DENIES ANY SOB. NO S/S OF RESPIRATORY DISTRESS NOTED. MEDNEB TX NOT INDICATED AT THIS TIME. PT AWARE TO CALL FOR RT IF NEEDED.
[2019-12-07] MEDS: PANTOPRAZOLE 40 MG TAB PO SCH (08:04)
[2019-12-07] MEDS: FERROUS SULFATE 325 MG TAB PO SCH (08:04)
[2019-12-07] MEDS: CARVEDILOL 3.125 MG TAB PO SCH (08:05)
[2019-12-07] MEDS: Glucerna Carbsteady SHAKE Vanilla 8oz PO SCH ×2 (08:07→11:56)
[2019-12-07 08:32] VITALS: BP 150/72
--- NOTE | 2019-12-07 11:28 | NUR ---
PT Patient declined to be OOB during PT visit but agreed to perform TRAN using TB on both U&L extremities from bed. Patient tolerated TRAN using TB well from bed. Addendum: 12/07/19 at 1132 by KARINE WYNN PTT Amended: Links added.
[2019-12-07 13:00] VITALS: BP 147/64
[2019-12-07 16:26] VITALS: BP 147/64
--- NOTE | 2019-12-07 17:00 | NUR ---
Discharge Picture Discharge picture taken, wound care done.
--- NOTE | 2019-12-07 18:15 | NUR ---
Discharge instructions given as ordered. Encourage to follow up with PMD as instructed. All questions and concerns addressed. Patient verbalized understanding. Medication reconciliation form completed and copy given to patient. IV removed with catheter intact and pressure dressing applied. Telemetry unit returned to ICU. Patient taken to vehicle via wheelchair with all personal belongings, accompanied by staff and family member. No distress noted at time of departure.
== END 2019-12-07 18:15 | disposition home or self-care (01) | DRG 811 ==
LOC: EDBD 16:36 → ER 16:40 → MERGE 16:41 → TELE 16:41 → TELE-WESTW 23:25
PROVIDERS: ADMIT Nurse Practitioner; ATTEND Internal Medicine
PROC: 0DB68ZX Excision of Stomach, Via Natural or Artificial Opening Endoscopic, Diagnostic (ICD-10-PCS; 2019-12-06)
PROC: 0D758ZZ Dilation of Esophagus, Via Natural or Artificial Opening Endoscopic (ICD-10-PCS; principal; 2019-12-06 11:43)
DX: D64.9 Anemia, unspecified (principal); J18.9 Pneumonia, unspecified organism; E43 Unspecified severe protein-calorie malnutrition; F10.231 Alcohol dependence with withdrawal delirium; I50.22 Chronic systolic (congestive) heart failure; Z68.1 Body mass index [BMI] 19.9 or less, adult; R13.10 Dysphagia, unspecified; R62.7 Adult failure to thrive; I95.9 Hypotension, unspecified; K29.70 Gastritis, unspecified, without bleeding; E86.0 Dehydration; J44.9 Chronic obstructive pulmonary disease, unspecified; E11.9 Type 2 diabetes mellitus without complications; D72.829 Elevated white blood cell count, unspecified; I48.0 Paroxysmal atrial fibrillation; R31.9 Hematuria, unspecified; Z88.6 Allergy status to analgesic agent; Z88.1 Allergy status to other antibiotic agents; Z88.5 Allergy status to narcotic agent; Z88.2 Allergy status to sulfonamides; Z88.8 Allergy status to other drugs, medicaments and biological substances; Z79.4 Long term (current) use of insulin; Z79.84 Long term (current) use of oral hypoglycemic drugs; Z79.899 Other long term (current) drug therapy; Z86.73 Personal history of transient ischemic attack (TIA), and cerebral infarction without residual deficits; I25.2 Old myocardial infarction; Z87.01 Personal history of pneumonia (recurrent); Z83.3 Family history of diabetes mellitus; Z80.9 Family history of malignant neoplasm, unspecified; Z88.0 Allergy status to penicillin
CPT/HCPCS: 36415; 43239; 43249; 71045; 80048; 80053; 81001; 82270; 82962; 83605; 83735; 83880; 84484; 85014; 85018; 85025; 85610; 85730; 86850; 86900; 86901; 87040; 87081; 93005; 97110; 97116; 97530; G0378; J1815; J1956; J2001; J2250; J2704

== ENCOUNTER → 2019-12-21 | Outpatient (CLI) | payer OTHER, MEDICAID ==
[2019-12-21 12:17] LABS: Hemoglobin 8.5 g/dL (13.5-17.5); White Blood Cell 8.8 10^3/uL (4.4-10.8)
[2019-12-21 12:19] LABS: Hematocrit 27.6 % (41.0-53.0); Mean Corpuscular Hemoglobin 27.2 pg (28.0-32.0); Mean Corpuscular Hgb Conc. 30.8 g/dL (32.0-36.0); Mean Corpuscular Volume 88.3 fL (80.0-100.0); Platelet Count (auto) 514 10^3/uL (140-450); Red Blood Cells 3.12 10^6/uL (4.5-5.90)
[2019-12-21 12:20] LABS: Red Cell Distribution Width 26.3 % (11.8-14.3)
[2019-12-21 12:21] LABS: Basophils % (manual) 0 (0.0-2.0); Blast Cells 0; Metamyelocytes % 0; Promyelocytes % 0; Reactive Lymphocytes 0
[2019-12-21 12:42] LABS: Albumin 2.1 g/dL (3.4-5.0); Calcium 8.2 mg/dL (8.5-10.1); Potassium 4.6 mmol/L (3.5-5.1)
[2019-12-21 12:45] LABS: BUN/Creatinine Ratio 21.1; Bilirubin, Total 0.3 mg/dL (0.2-1.0); Total Protein 6.5 g/dL (6.4-8.2)
[2019-12-21 13:08] LABS: Band Neutrophils % (manual) 2; Eosinophils % (manual) 6 (0-7); Lymphocytes % (manual) 29 (10.0-50.0); Monocytes % (manual) 10 (0-12); Myelocytes % 1
== END | disposition home or self-care (01) ==
LOC: LAB 11:19
PROVIDERS: ATTEND Internal Medicine
DX: R22.43 Localized swelling, mass and lump, lower limb, bilateral (principal)
CPT/HCPCS: 36415; 80053; 83880; 85007; 85027

== ENCOUNTER → 2019-12-27 | Outpatient (CLI) | payer OTHER, MEDICAID ==
[2019-12-27 10:48] LABS: Urine Bacteria NONE SEEN /hpf (None Seen); Urine Blood Negative /uL (Negative); Urine Specific Gravity 1.011 (1.001-1.035); Urine WBC 47 /hpf (0 - 3)
== END | disposition home or self-care (01) ==
LOC: LAB 10:28
PROVIDERS: ATTEND Internal Medicine
DX: I50.9 Heart failure, unspecified (principal); J44.9 Chronic obstructive pulmonary disease, unspecified; F41.9 Anxiety disorder, unspecified
CPT/HCPCS: 81001; 87086

== ENCOUNTER → 2020-02-22 | Outpatient (CLI) | payer OTHER, MEDICAID | END | disposition home or self-care (01) | LOC: LAB 14:26 | PROVIDERS: ATTEND Internal Medicine | DX: I11.0 Hypertensive heart disease with heart failure (principal); I50.9 Heart failure, unspecified; E11.9 Type 2 diabetes mellitus without complications; L89.153 Pressure ulcer of sacral region, stage 3 | CPT/HCPCS: 87077; 87186; 87205 ==

== ENCOUNTER → 2020-04-10 | Outpatient (CLI) | payer OTHER, MEDICAID ==
[2020-04-10 14:21] LABS: Urine Bacteria FEW /hpf (None Seen); Urine Blood Negative /uL (Negative); Urine Specific Gravity 1.009 (1.001-1.035); Urine Sperm PRESENT /hpf (None Seen); Urine WBC 9 /hpf (0 - 3)
== END | disposition home or self-care (01) ==
LOC: LAB 13:52
DX: N39.0 Urinary tract infection, site not specified (principal); E11.9 Type 2 diabetes mellitus without complications
CPT/HCPCS: 81001; 87086

== ENCOUNTER → 2020-04-11 | Outpatient (CLI) | payer OTHER, MEDICAID ==
[~2020-04-11] MED LIST changes: -ASPI-404 PO; +ASPI-543 PO
[2020-04-11 10:20] LABS: Basophils # (auto) 0.1 10 ^3/uL (0-0.2); Basophils % (auto) 0.9 % (0.0-2.0); Eosinophils # (auto) 0.1 10 ^3/uL (0-0.8); Eosinophils % (auto) 0.9 % (0.0-7.0); Hemoglobin 11.7 g/dL (13.5-17.5); Lymphocytes # (auto) 2.1 10 ^3/uL (0.4-5.4); Lymphocytes % (auto) 23.1 % (10.0-50.0); Mean Corpuscular Hemoglobin 31.6 pg (28.0-32.0); Mean Corpuscular Hgb Conc. 33.3 g/dL (32.0-36.0); Monocytes # (auto) 0.8 10 ^3/uL (0-1.3); Monocytes % (auto) 8.9 % (0.0-12.0); Neutrophils # (auto) 5.9 10 ^3/uL (1.6-8.6); Neutrophils % (auto) 66.2 % (37.0-80.0); Platelet Count (auto) 304 10^3/uL (140-450); Red Blood Cells 3.69 10^6/uL (4.5-5.90); Red Cell Distribution Width 15.3 % (11.8-14.3)
[2020-04-11 11:06] LABS: Albumin 3.7 g/dL (3.4-5.0); Calcium 8.7 mg/dL (8.5-10.1); Potassium 4.3 mmol/L (3.5-5.1)
[2020-04-11 11:22] LABS: BUN/Creatinine Ratio 18.8; Bilirubin, Total 0.4 mg/dL (0.2-1.0); CRP High Sensitivity 0.06 mg/dL (< 0.3); Total Protein 6.6 g/dL (6.4-8.2)
== END | disposition home or self-care (01) ==
LOC: LAB 10:01
PROVIDERS: ATTEND Internal Medicine
DX: E11.9 Type 2 diabetes mellitus without complications (principal); M05.79 Rheumatoid arthritis with rheumatoid factor of multiple sites without organ or systems involvement
CPT/HCPCS: 36415; 80053; 85025; 85652; 86141; 86200; 86431

== ENCOUNTER → 2020-06-18 | Outpatient (CLI) | payer OTHER, MEDICAID ==
[2020-06-18 15:31] LABS: Albumin 3.6 g/dL (3.4-5.0); BUN/Creatinine Ratio 20.8; Calcium 8.6 mg/dL (8.5-10.1); Potassium 3.9 mmol/L (3.5-5.1)
[2020-06-18 15:34] LABS: Bilirubin, Total 0.3 mg/dL (0.2-1.0); Total Protein 6.7 g/dL (6.4-8.2)
[2020-06-18 15:36] LABS: Basophils # (auto) 0.1 10 ^3/uL (0-0.2); Basophils % (auto) 1.5 % (0.0-2.0); Eosinophils # (auto) 0.1 10 ^3/uL (0-0.8); Eosinophils % (auto) 1.1 % (0.0-7.0); Hematocrit 33.6 % (41.0-53.0); Hemoglobin 11.3 g/dL (13.5-17.5); Lymphocytes # (auto) 2.2 10 ^3/uL (0.4-5.4); Mean Corpuscular Hemoglobin 33.1 pg (28.0-32.0); Mean Corpuscular Hgb Conc. 33.6 g/dL (32.0-36.0); Mean Corpuscular Volume 98.7 fL (80.0-100.0); Monocytes # (auto) 0.8 10 ^3/uL (0-1.3); Monocytes % (auto) 9.6 % (0.0-12.0); Neutrophils # (auto) 5.1 10 ^3/uL (1.6-8.6); Neutrophils % (auto) 61.8 % (37.0-80.0); Platelet Count (auto) 305 10^3/uL (140-450); Red Blood Cells 3.41 10^6/uL (4.5-5.90); Red Cell Distribution Width 14.6 % (11.8-14.3); White Blood Cell 8.3 10^3/uL (4.4-10.8)
== END | disposition home or self-care (01) ==
LOC: LAB 14:56
PROVIDERS: ATTEND Internal Medicine
DX: E11.9 Type 2 diabetes mellitus without complications (principal); M06.9 Rheumatoid arthritis, unspecified
CPT/HCPCS: 36415; 80053; 85025; 85652

== ENCOUNTER → 2020-07-20 | Outpatient (CLI) | payer OTHER, MEDICAID ==
[2020-07-20 12:22] LABS: Cholesterol 105 mg/dL (< 200); HDL Cholesterol 46 mg/dL (40-59); LDL Cholesterol 53 mg/dL (< 100); Triglycerides 146 mg/dL (< 150)
== END | disposition home or self-care (01) ==
LOC: LAB 11:46
PROVIDERS: ATTEND Internal Medicine
DX: Z12.5 Encounter for screening for malignant neoplasm of prostate (principal); Z12.11 Encounter for screening for malignant neoplasm of colon; E11.9 Type 2 diabetes mellitus without complications; R06.9 Unspecified abnormalities of breathing
CPT/HCPCS: 36415; 80061; 82043; 83036; 84153

== ENCOUNTER → 2020-09-14 | Outpatient (CLI) | payer OTHER, MEDICAID | END | disposition home or self-care (01) | LOC: LAB 10:53 | PROVIDERS: ATTEND Internal Medicine | DX: R89.5 Abnormal microbiological findings in specimens from other organs, systems and tissues (principal) | CPT/HCPCS: 87205 ==

== ENCOUNTER → 2020-10-15 | Outpatient (CLI) | payer OTHER, MEDICAID | END | disposition home or self-care (01) | LOC: XYW 08:43 | PROVIDERS: ATTEND Internal Medicine | DX: Z01.810 Encounter for preprocedural cardiovascular examination (principal); I65.23 Occlusion and stenosis of bilateral carotid arteries | CPT/HCPCS: 93886 ==

== ENCOUNTER → 2020-11-11 | Outpatient (CLI) | payer OTHER, MEDICAID ==
[2020-11-11 10:20] LABS: Basophils # (auto) 0.1 10 ^3/uL (0-0.2); Basophils % (auto) 1.4 % (0.0-2.0); Eosinophils # (auto) 0.1 10 ^3/uL (0-0.8); Hemoglobin 11.4 g/dL (13.5-17.5); Mean Corpuscular Volume 99.7 fL (80.0-100.0); Monocytes # (auto) 0.8 10 ^3/uL (0-1.3); White Blood Cell 8.5 10^3/uL (4.4-10.8)
[2020-11-11 10:21] LABS: Eosinophils % (auto) 0.9 % (0.0-7.0); Hematocrit 32.9 % (41.0-53.0); Lymphocytes # (auto) 2.4 10 ^3/uL (0.4-5.4); Lymphocytes % (auto) 28.1 % (10.0-50.0); Mean Corpuscular Hemoglobin 34.4 pg (28.0-32.0); Mean Corpuscular Hgb Conc. 34.5 g/dL (32.0-36.0); Monocytes % (auto) 9.2 % (0.0-12.0); Neutrophils # (auto) 5.1 10 ^3/uL (1.6-8.6); Neutrophils % (auto) 60.4 % (37.0-80.0); Nucleated Red Blood Cells % 0.1 %; Platelet Count (auto) 284 10^3/uL (140-450); Red Cell Distribution Width 14.4 % (11.8-14.3)
== END | disposition home or self-care (01) ==
LOC: LAB 10:04
PROVIDERS: ATTEND Internal Medicine
DX: M06.9 Rheumatoid arthritis, unspecified (principal)
CPT/HCPCS: 36415; 83036; 85025; 85652

== ENCOUNTER → 2020-11-18 | Outpatient (CLI) | payer OTHER, MEDICAID ==
[~2020-11-18] MED LIST changes: +ALPR0.5T PO; +CARV12.544 PO; +DOCU-80 PO; +DULO60CA PO; +FERR200T3 PO; -FOLI800T14 OR; +FOLI800T14 PO; +FURO40TA4 PO; -GABA300C10 OR; +GABA300C10 PO; +GABA400C11 PO; +MESA800T PO; +MESA800T2 PO; -METF500T OR; +METF500T PO; -MONT10TA23 OR; +MONT10TA23 PO; +PANT40T PO; -POTA-167 OR; +POTA-167 PO; +TAM04C PO
[2020-11-18 14:10] LABS: Basophils # (auto) 0.1 10 ^3/uL (0-0.2); Eosinophils # (auto) 0.1 10 ^3/uL (0-0.8); Monocytes # (auto) 0.9 10 ^3/uL (0-1.3); Monocytes % (auto) 8.9 % (0.0-12.0); Nucleated Red Blood Cells % 0.1 %
[2020-11-18 14:12] LABS: Basophils % (auto) 1.2 % (0.0-2.0); Eosinophils % (auto) 0.9 % (0.0-7.0); Hematocrit 32.7 % (41.0-53.0); Hemoglobin 11.6 g/dL (13.5-17.5); Lymphocytes # (auto) 2.6 10 ^3/uL (0.4-5.4); Lymphocytes % (auto) 26.5 % (10.0-50.0); Mean Corpuscular Hemoglobin 35.3 pg (28.0-32.0); Mean Corpuscular Hgb Conc. 35.5 g/dL (32.0-36.0); Mean Corpuscular Volume 99.5 fL (80.0-100.0); Neutrophils % (auto) 62.5 % (37.0-80.0); Red Blood Cells 3.29 10^6/uL (4.5-5.90); Red Cell Distribution Width 14.4 % (11.8-14.3); White Blood Cell 9.7 10^3/uL (4.4-10.8)
[2020-11-18 15:06] LABS: Potassium 4.2 mmol/L (3.5-5.1)
[2020-11-18 15:14] LABS: Albumin 3.7 g/dL (3.4-5.0); BUN/Creatinine Ratio 22.2; Bilirubin, Total 0.3 mg/dL (0.2-1.0); Calcium 8.3 mg/dL (8.5-10.1); Total Protein 6.3 g/dL (6.4-8.2)
== END | disposition home or self-care (01) ==
LOC: LAB 13:56
PROVIDERS: ATTEND Internal Medicine
DX: I25.10 Atherosclerotic heart disease of native coronary artery without angina pectoris (principal); I73.9 Peripheral vascular disease, unspecified
CPT/HCPCS: 36415; 80053; 85025

== ENCOUNTER → 2020-11-27 | Outpatient (CLI) | payer OTHER, MEDICAID | END | disposition home or self-care (01) | LOC: LAB 16:34 | PROVIDERS: ATTEND Internal Medicine | DX: L89.152 Pressure ulcer of sacral region, stage 2 (principal) | CPT/HCPCS: 87205 ==

== ENCOUNTER → 2020-12-30 | Outpatient (CLI) | payer OTHER, MEDICAID ==
[~2020-12-30] MED LIST changes: -ALPR0.5T PO; -CARV12.544 PO; -DOCU-80 PO; -DULO60CA PO; -FERR200T3 PO; +FOLI800T14 OR; -FOLI800T14 PO; -FURO40TA4 PO; +GABA300C10 OR; -GABA300C10 PO; -GABA400C11 PO; -MESA800T PO; -MESA800T2 PO; +METF500T OR; -METF500T PO; +MONT10TA23 OR; -MONT10TA23 PO; -PANT40T PO; +POTA-167 OR; -POTA-167 PO; -TAM04C PO
== END | disposition home or self-care (01) ==
LOC: LAB 10:35
PROVIDERS: ATTEND Internal Medicine
DX: E11.9 Type 2 diabetes mellitus without complications (principal); M06.9 Rheumatoid arthritis, unspecified; Z12.11 Encounter for screening for malignant neoplasm of colon
CPT/HCPCS: 36415; 84403; 84443

== ENCOUNTER → 2021-01-07 | Outpatient (CLI) | payer OTHER, MEDICAID ==
[~2021-01-07] MED LIST changes: +CARV12.544 PO; +DULO60CA PO; +FERR200T3 PO; +FURO40TA4 PO; -GABA300C10 OR; +GABA300C10 PO; +MESA800T PO; +TAM04C PO
[2021-01-07 10:37] LABS: Basophils # (auto) 0.1 10 ^3/uL (0-0.2); Eosinophils # (auto) 0.1 10 ^3/uL (0-0.8); Eosinophils % (auto) 1.2 % (0.0-7.0); Monocytes # (auto) 0.7 10 ^3/uL (0-1.3); Neutrophils # (auto) 5.9 10 ^3/uL (1.6-8.6)
[2021-01-07 10:39] LABS: Basophils % (auto) 1.1 % (0.0-2.0); Hematocrit 34.1 % (41.0-53.0); Hemoglobin 11.6 g/dL (13.5-17.5); Lymphocytes # (auto) 1.9 10 ^3/uL (0.4-5.4); Mean Corpuscular Hemoglobin 34.7 pg (28.0-32.0); Mean Corpuscular Hgb Conc. 34.1 g/dL (32.0-36.0); Mean Corpuscular Volume 101.8 fL (80.0-100.0); Monocytes % (auto) 8.5 % (0.0-12.0); Neutrophils % (auto) 67.2 % (37.0-80.0); Platelet Count (auto) 315 10^3/uL (140-450); Red Blood Cells 3.35 10^6/uL (4.5-5.90); Red Cell Distribution Width 13.8 % (11.8-14.3); White Blood Cell 8.8 10^3/uL (4.4-10.8)
[2021-01-07 10:44] LABS: INR 0.91 (0.9-1.15); Partial Thromboplastin Time 25.8 sec (23.0-31.2)
[2021-01-07 10:47] LABS: Albumin 3.5 g/dL (3.4-5.0); Calcium 8.5 mg/dL (8.5-10.1); Potassium 4.4 mmol/L (3.5-5.1)
[2021-01-07 10:51] LABS: BUN/Creatinine Ratio 16.7; Bilirubin, Total 0.3 mg/dL (0.2-1.0); Total Protein 6.7 g/dL (6.4-8.2)
== END | disposition home or self-care (01) ==
LOC: LAB 10:12
PROVIDERS: ATTEND Internal Medicine
DX: Z01.812 Encounter for preprocedural laboratory examination (principal)
CPT/HCPCS: 36415; 80053; 85025; 85610; 85730

== ENCOUNTER 2021-01-10 07:02 | Day surgery (SDC) | payer OTHER, MEDICAID ==
[~2021-01-10] VITALS: Ht 157.5 cm; Wt 56.2 kg
[~2021-01-10 07:02] MED LIST changes: -ALBU0.08 HHN; -ALBUAER3 IN; -CLON0.3T PO; -CLOP75TA28 PO; -FEXO24TA10 PO; -FLUT250M2 INH; -FOLI800T14 OR; +FOLI800T14 PO; -METF500T OR; +METF500T PO; -METH25IN14 IJ; -MONT10TA23 OR; +MONT10TA23 PO; -POTA-167 OR; +POTA-167 PO; -TRI05TP INJ
[2021-01-10] MEDS ORDERED: IODIXANOL 320MG/ML 100ML BTL IV ONE (07:21)
[2021-01-10] MEDS ORDERED: LIDOCAINE 2%HCL (LOCAL ANESTH.) INJ 20ML MDV ONE (07:21)
[2021-01-10] MEDS ORDERED: ANGIOMAX 250 MG VIAL IV ONE (08:07)
[2021-01-10] MEDS ORDERED: fentaNYL CITRATE 100 MCG/2 ML VL ONE (08:08)
[2021-01-10] MEDS ORDERED: MIDAZOLAM HCL 1MG/1ML-2 ML VIAL ONE ×2 (08:08→08:20)
[2021-01-10] MEDS ORDERED: SODIUM CHL 0.9% 0 ML ONE (08:08)
[2021-01-10] MEDS ORDERED: IOHEXOL 350 MG/ML 100ML IJ ONE (08:15)
[2021-01-10] MEDS ORDERED: SODIUM CHL 0.9% 50 ML ONE (08:17)
[2021-01-10] MEDS ORDERED: diphenhdrAMINE HCL 50 MG/1 ML VL ONE (08:24)
[2021-01-10] MEDS ORDERED: HYDROmorphone HCL 2 MG/ML VL ONE (08:24)
[2021-01-10] MEDS ORDERED: MESA800T2 PO (09:14)
[2021-01-10] MEDS ORDERED: PANT40T PO (09:14)
[2021-01-10] MEDS ORDERED: ALPR0.5T PO (09:14)
[2021-01-10] MEDS ORDERED: GABA400C11 PO (09:14)
[2021-01-10] MEDS ORDERED: DOCU-80 PO (09:15)
== END 2021-01-10 11:00 | disposition home or self-care (01) ==
LOC: CATH 07:02
PROVIDERS: ATTEND Internal Medicine
DX: I70.211 Atherosclerosis of native arteries of extremities with intermittent claudication, right leg (principal); Z20.822 Contact with and (suspected) exposure to COVID-19; Z98.890 Other specified postprocedural states; Z79.899 Other long term (current) drug therapy; Z88.8 Allergy status to other drugs, medicaments and biological substances; Z88.1 Allergy status to other antibiotic agents; Z88.5 Allergy status to narcotic agent; Z88.0 Allergy status to penicillin; J43.9 Emphysema, unspecified; Z80.9 Family history of malignant neoplasm, unspecified; I11.0 Hypertensive heart disease with heart failure; E78.5 Hyperlipidemia, unspecified; F17.210 Nicotine dependence, cigarettes, uncomplicated
CPT/HCPCS: 36247; 75716; C1760; C1769; C1894; J1170; J1200; J1644; J2250; J3010; J7040; Q9967; U0003; 99152

== ENCOUNTER → 2021-01-15 | Outpatient (CLI) | payer OTHER, MEDICAID ==
[~2021-01-15] MED LIST changes: +ALPR0.5T PO; -ASPI-543 PO; +DOCU-80 PO; -FERR200T3 PO; -GABA300C10 PO; +GABA400C11 PO; -MESA800T PO; +MESA800T2 PO; -METF500T PO; -PANT1INJ3 OR; +PANT40T PO
== END | disposition home or self-care (01) ==
LOC: XYW 11:03
PROVIDERS: ATTEND Internal Medicine
DX: I08.0 Rheumatic disorders of both mitral and aortic valves (principal); I11.9 Hypertensive heart disease without heart failure
CPT/HCPCS: 93306

== ENCOUNTER → 2021-01-27 | Outpatient (CLI) | payer OTHER, MEDICAID ==
[2021-01-27 10:04] LABS: Calcium 8.2 mg/dL (8.5-10.1); Potassium 4.7 mmol/L (3.5-5.1)
[2021-01-27 10:06] LABS: BUN/Creatinine Ratio 17.7
== END | disposition home or self-care (01) ==
LOC: LAB 09:06
PROVIDERS: ATTEND Urology
DX: R35.1 Nocturia (principal); R32 Unspecified urinary incontinence
CPT/HCPCS: 36415; 80048; 84153

== ENCOUNTER → 2021-02-10 | Outpatient (CLI) | payer OTHER, MEDICAID ==
[2021-02-10 14:58] LABS: Basophils # (auto) 0.1 10 ^3/uL (0-0.2); Eosinophils # (auto) 0.1 10 ^3/uL (0-0.8); Monocytes % (auto) 9.5 % (0.0-12.0)
[2021-02-10 15:00] LABS: Basophils % (auto) 1.1 % (0.0-2.0); Hematocrit 33.2 % (41.0-53.0); Hemoglobin 11.6 g/dL (13.5-17.5); Lymphocytes % (auto) 28.1 % (10.0-50.0); Mean Corpuscular Hemoglobin 35.4 pg (28.0-32.0); Mean Corpuscular Volume 101.3 fL (80.0-100.0); Neutrophils # (auto) 6.5 10 ^3/uL (1.6-8.6); Neutrophils % (auto) 60.3 % (37.0-80.0); Platelet Count (auto) 312 10^3/uL (140-450); Red Blood Cells 3.27 10^6/uL (4.5-5.90); Red Cell Distribution Width 13.2 % (11.8-14.3); White Blood Cell 10.7 10^3/uL (4.4-10.8)
== END | disposition home or self-care (01) ==
LOC: LAB 14:21
PROVIDERS: ATTEND Internal Medicine
DX: M06.9 Rheumatoid arthritis, unspecified (principal)
CPT/HCPCS: 36415; 84403; 84443; 85025; 85652

== ENCOUNTER 2021-04-24 10:16 | Emergency (ER) | payer OTHER, MEDICAID ==
[~2021-04-24] VITALS: Ht 157.5 cm; Wt 57.2 kg
[2021-04-24 11:00] VITALS: BP 144/66
== END 2021-04-24 12:30 | disposition home or self-care (01) ==
LOC: ER 10:16
DX: S01.01XA Laceration without foreign body of scalp, initial encounter (principal); S51.812A Laceration without foreign body of left forearm, initial encounter; M48.02 Spinal stenosis, cervical region; I11.0 Hypertensive heart disease with heart failure; E11.9 Type 2 diabetes mellitus without complications; I25.2 Old myocardial infarction; M19.90 Unspecified osteoarthritis, unspecified site; F17.210 Nicotine dependence, cigarettes, uncomplicated; Z90.89 Acquired absence of other organs; Z98.61 Coronary angioplasty status; Z79.899 Other long term (current) drug therapy; Z88.8 Allergy status to other drugs, medicaments and biological substances; W19.XXXA Unspecified fall, initial encounter; Y93.89 Activity, other specified; Y92.89 Other specified places as the place of occurrence of the external cause; Y99.8 Other external cause status
CPT/HCPCS: 12001; 70450; 72125

== ENCOUNTER 2021-05-03 14:44 | Emergency (ER) | payer OTHER, MEDICAID ==
[~2021-05-03] VITALS: Ht 157.5 cm; Wt 55.8 kg
[2021-05-03 16:33] VITALS: BP 140/68
== END 2021-05-03 16:38 | disposition home or self-care (01) ==
LOC: ER 14:44
DX: S01.01XD Laceration without foreign body of scalp, subsequent encounter (principal); F17.210 Nicotine dependence, cigarettes, uncomplicated; I11.0 Hypertensive heart disease with heart failure; I50.9 Heart failure, unspecified; I25.2 Old myocardial infarction; Z98.61 Coronary angioplasty status; Z90.89 Acquired absence of other organs; Z88.1 Allergy status to other antibiotic agents; Z88.8 Allergy status to other drugs, medicaments and biological substances; Z79.899 Other long term (current) drug therapy; X58.XXXD Exposure to other specified factors, subsequent encounter

== ENCOUNTER 2021-08-01 14:47 | Emergency (ER) | payer OTHER, MEDICAID ==
[~2021-08-01] VITALS: Ht 157.5 cm; Wt 58.5 kg
[2021-08-01 16:12] VITALS: BP 144/55
== END 2021-08-01 17:16 | disposition home or self-care (01) ==
LOC: ER 14:47
DX: M70.21 Olecranon bursitis, right elbow (principal); I11.0 Hypertensive heart disease with heart failure; I50.9 Heart failure, unspecified; K21.9 Gastro-esophageal reflux disease without esophagitis; F17.210 Nicotine dependence, cigarettes, uncomplicated; E78.5 Hyperlipidemia, unspecified; Z86.73 Personal history of transient ischemic attack (TIA), and cerebral infarction without residual deficits; Z88.0 Allergy status to penicillin; Z88.6 Allergy status to analgesic agent; Z88.8 Allergy status to other drugs, medicaments and biological substances

== ENCOUNTER → 2021-08-19 | Outpatient (CLI) | payer OTHER | END | disposition home or self-care (01) | LOC: LAB 16:12 | PROVIDERS: ATTEND Internal Medicine | DX: S81.809A Unspecified open wound, unspecified lower leg, initial encounter (principal); X58.XXXA Exposure to other specified factors, initial encounter; Y93.89 Activity, other specified; Y92.89 Other specified places as the place of occurrence of the external cause; Y99.8 Other external cause status | CPT/HCPCS: 87077; 87186; 87205 ==

== ENCOUNTER 2021-09-17 07:04 | Inpatient (IN) | payer OTHER, MEDICAID ==
[~2021-09-17] VITALS: Ht 157.5 cm; Wt 54.8 kg
[2021-09-17] VITALS (9 sets, daily range): BP systolic 148–178; BP diastolic 61–82
[~2021-09-17 07:04] MED LIST changes: +FERR-7 PO; +GABA-339 PO; +GABA300C10 PO; -GABA400C11 PO; -INSLANTI SC; +INSUINJ37 SC; -MESA800T2 PO; +METF-929 PO
[2021-09-17] MEDS ORDERED: HEPARIN SODIUM (PORCINE) 5000 UNITS/ML 1ML VIAL ONE (07:58)
[2021-09-17] MEDS ORDERED: VERAPAMIL 2.5MG/ML INJ 2ML VIAL IV ONE (07:58)
[2021-09-17] MEDS ORDERED: MIDAZOLAM HCL 2MG/2ML 2ml VIAL (1mg/ml) ONE (07:59)
[2021-09-17] MEDS ORDERED: fentaNYL CITRATE 100 MCG/2 ML VL ONE (07:59)
[2021-09-17] MEDS ORDERED: IODIXANOL 320MG/ML 100ML BTL IV ONE (07:59)
[2021-09-17] MEDS ORDERED: LIDOCAINE 2%HCL (LOCAL ANESTH.) INJ 20ML MDV ONE (07:59)
[2021-09-17] MEDS ORDERED: IOHEXOL 350 MG/ML 100ML IJ ONE ×2 (09:21→12:04)
[2021-09-17] MEDS ORDERED: diphenhdrAMINE HCL 50 MG/1 ML VL ONE (11:21)
[2021-09-17] MEDS ORDERED: ASPirin 325 MG TAB ONE (12:03)
[2021-09-17] MEDS ORDERED: TICAGRELOR 90 MG TAB ONE (12:03)
[2021-09-17] MEDS ORDERED: MORPHINE SULFATE INJECTION 2 MG/ML SYRG IV PRN ×2 (13:15→16:00)
[2021-09-17] MEDS ORDERED: NITROGLYCERIN 0.4 MG SL TAB SL PRN ×2 (13:15→16:00)
[2021-09-17] MEDS: InsuLIN REG 1unit/0.01ml Soln (100units/ml) SC SCH ×2 (17:00→21:40)
[2021-09-17] MEDS ORDERED: HYDROcodone-ACET 10/325MG TAB PO PRN (17:00)
[2021-09-17] MEDS ORDERED: DEXTROSE (50%) 50ML SYRG IV PRN (17:00)
[2021-09-17] MEDS: CARVEDILOL 3.125 MG TAB PO SCH (18:05)
[2021-09-17] MEDS: FERROUS SULFATE 325mg EC TAB PO SCH ×2 (20:57→21:45)
[2021-09-17] MEDS: DULoxetine HCL 30 MG CAP PO SCH ×2 (20:57→21:46)
[2021-09-17] MEDS: ATORVASTATIN 20 MG TAB PO SCH ×2 (20:59→21:46)
[2021-09-17] MEDS: POTASSIUM CHL 10 Meq TABLET PO SCH ×2 (20:59→21:46)
[2021-09-17] MEDS: MAGNESIUM OXIDE 400 MG TAB PO SCH ×2 (21:00→21:46)
[2021-09-17] MEDS: PANTOPRAZOLE 40 MG TAB PO SCH ×2 (21:00→21:46)
[2021-09-17] MEDS: ALPRAZolam 0.5 MG TAB PO SCH (21:01)
[2021-09-17] MEDS: MONTELUKAST SODIUM 10 MG TAB PO SCH ×2 (21:01→21:47)
[2021-09-17] MEDS: TICAGRELOR 90 MG TAB PO SCH (21:40)
[2021-09-17] MEDS: ACCU-CHEK COMFORT CURVE STRIP VI SCH (21:41)
[2021-09-17] MEDS ORDERED: GABAPENTIN 300 MG CAP PO SCH (22:00)
[2021-09-18 05:00] VITALS: BP 159/71
[2021-09-18] MEDS: ACCU-CHEK COMFORT CURVE STRIP VI SCH (05:57)
[2021-09-18] MEDS: InsuLIN REG 1unit/0.01ml Soln (100units/ml) SC SCH (05:58)
[2021-09-18 06:49] LABS: Basophils # (auto) 0.1 10 ^3/uL (0-0.2); Basophils % (auto) 0.8 % (0.0-2.0); Eosinophils # (auto) 0.1 10 ^3/uL (0-0.8); Hemoglobin 11.7 g/dL (13.5-17.5); Lymphocytes # (auto) 1.6 10 ^3/uL (0.4-5.4); Monocytes # (auto) 0.8 10 ^3/uL (0-1.3); Neutrophils % (auto) 71.9 % (37.0-80.0)
[2021-09-18 06:52] LABS: Eosinophils % (auto) 0.7 % (0.0-7.0); Hematocrit 34.7 % (41.0-53.0); Lymphocytes % (auto) 17.5 % (10.0-50.0); Mean Corpuscular Hemoglobin 34.1 pg (28.0-32.0); Mean Corpuscular Hgb Conc. 33.8 g/dL (32.0-36.0); Mean Corpuscular Volume 100.8 fL (80.0-100.0); Monocytes % (auto) 9.1 % (0.0-12.0); Neutrophils # (auto) 6.6 10 ^3/uL (1.6-8.6); Red Blood Cells 3.44 10^6/uL (4.5-5.90); Red Cell Distribution Width 13.3 % (11.8-14.3); White Blood Cell 9.2 10^3/uL (4.4-10.8)
[2021-09-18 06:57] LABS: Albumin 3.4 g/dL (3.4-5.0); Calcium 8.8 mg/dL (8.5-10.1); Potassium 3.6 mmol/L (3.5-5.1)
[2021-09-18 07:02] LABS: Bilirubin, Total 0.6 mg/dL (0.2-1.0)
[2021-09-18 09:12] VITALS: BP 159/77
[2021-09-18] MEDS: FERROUS SULFATE 325mg EC TAB PO SCH (09:29)
[2021-09-18] MEDS: TICAGRELOR 90 MG TAB PO SCH (09:29)
[2021-09-18] MEDS: POTASSIUM CHL 10 Meq TABLET PO SCH (09:30)
[2021-09-18] MEDS: CARVEDILOL 3.125 MG TAB PO SCH (09:30)
[2021-09-18] MEDS: PANTOPRAZOLE 40 MG TAB PO SCH (09:30)
[2021-09-18] MEDS: ALPRAZolam 0.5 MG TAB PO SCH (09:30)
[2021-09-18] MEDS: MAGNESIUM OXIDE 400 MG TAB PO SCH (09:30)
[2021-09-18] MEDS ORDERED: FOLIC ACID 1 MG TAB PO SCH (10:00)
[2021-09-18] MEDS ORDERED: GABAPENTIN 300 MG CAP PO SCH (10:00)
[2021-09-18] MEDS ORDERED: TAMSULOSIN HYDROCHLORIDE 0.4 MG CAP PO ONE (10:00)
[2021-09-18] MEDS ORDERED: LACTULOSE 20Gm/30ML SOLN PO SCH (10:00)
[2021-09-18] MEDS ORDERED: ASPirin-EC 81 mg tab PO SCH (10:00)
[2021-09-18] MEDS ORDERED: FUROSEMIDE 20 MG TAB PO SCH (10:00)
[2021-09-18 11:29] VITALS: BP 156/66
== END 2021-09-18 11:45 | disposition home or self-care (01) | DRG 246 ==
LOC: CATH 07:04 → WEST WING 13:03 → TELE-WESTW 15:14
PROVIDERS: ADMIT Internal Medicine; ATTEND Internal Medicine
PROC: 4A023N8 Measurement of Cardiac Sampling and Pressure, Bilateral, Percutaneous Approach (ICD-10-PCS; principal; 2021-09-17)
PROC: 027236Z Dilation of Coronary Artery, Three Arteries with Three Drug-eluting Intraluminal Devices, Percutaneous Approach (ICD-10-PCS; 2021-09-17)
PROC: 02C13Z7 Extirpation of Matter from Coronary Artery, Two Arteries, Orbital Atherectomy Technique, Percutaneous Approach (ICD-10-PCS; 2021-09-17)
PROC: B211YZZ Fluoroscopy of Multiple Coronary Arteries using Other Contrast (ICD-10-PCS; 2021-09-17)
PROC: B215YZZ Fluoroscopy of Left Heart using Other Contrast (ICD-10-PCS; 2021-09-17)
PROC: 4A033BC Measurement of Arterial Pressure, Coronary, Percutaneous Approach (ICD-10-PCS; 2021-09-17)
DX: I25.10 Atherosclerotic heart disease of native coronary artery without angina pectoris (principal); Z20.822 Contact with and (suspected) exposure to COVID-19; E11.9 Type 2 diabetes mellitus without complications; E78.5 Hyperlipidemia, unspecified; F32.A Depression, unspecified; G89.29 Other chronic pain; I11.0 Hypertensive heart disease with heart failure; I48.0 Paroxysmal atrial fibrillation; I50.9 Heart failure, unspecified; J44.9 Chronic obstructive pulmonary disease, unspecified; N40.0 Benign prostatic hyperplasia without lower urinary tract symptoms; Z72.0 Tobacco use; Z79.02 Long term (current) use of antithrombotics/antiplatelets; Z88.8 Allergy status to other drugs, medicaments and biological substances; Z71.6 Tobacco abuse counseling
CPT/HCPCS: 36415; 80053; 82962; 83036; 85025; 92928; 92933; 92934; 93460; 93571; 99152; 99153; C1724; C1751; C1769; C1874; C1887; G0378; J1815; J2250; Q9967

== ENCOUNTER 2021-09-26 12:07 | Emergency (ER) | payer OTHER, MEDICAID ==
[~2021-09-26] VITALS: Ht 154.9 cm; Wt 65.8 kg
[2021-09-26] MEDS ORDERED: ASPirin 81 mg TAB PO ONE (12:15)
[2021-09-26 12:25] VITALS: BP 142/69
[2021-09-26 16:01] LABS: Basophils # (auto) 0.1 10 ^3/uL (0-0.2); Eosinophils # (auto) 0.1 10 ^3/uL (0-0.8); Hemoglobin 11.4 g/dL (13.5-17.5); Monocytes # (auto) 0.6 10 ^3/uL (0-1.3); Monocytes % (auto) 8.5 % (0.0-12.0); White Blood Cell 7.4 10^3/uL (4.4-10.8)
[2021-09-26 16:03] LABS: Basophils % (auto) 1.3 % (0.0-2.0); Eosinophils % (auto) 1.2 % (0.0-7.0); Hematocrit 33.1 % (41.0-53.0); Lymphocytes # (auto) 2.1 10 ^3/uL (0.4-5.4); Lymphocytes % (auto) 28.6 % (10.0-50.0); Mean Corpuscular Hemoglobin 34.7 pg (28.0-32.0); Mean Corpuscular Hgb Conc. 34.6 g/dL (32.0-36.0); Mean Corpuscular Volume 100.4 fL (80.0-100.0); Neutrophils # (auto) 4.5 10 ^3/uL (1.6-8.6); Neutrophils % (auto) 60.4 % (37.0-80.0); Red Blood Cells 3.29 10^6/uL (4.5-5.90); Red Cell Distribution Width 13.4 % (11.8-14.3)
[2021-09-26 16:10] LABS: Albumin 3.3 g/dL (3.4-5.0); Magnesium 2.6 mg/dL (1.6-2.6); Potassium 3.9 mmol/L (3.5-5.1)
[2021-09-26 16:14] LABS: BUN/Creatinine Ratio 17.6; Bilirubin, Total 0.3 mg/dL (0.2-1.0); Total Protein 6.5 g/dL (6.4-8.2)
[2021-09-26 16:38] LABS: INR 0.93 (0.9-1.15); Partial Thromboplastin Time 28.2 sec (23.6-33.0)
== END 2021-09-26 17:02 | disposition home or self-care (01) ==
LOC: ER 12:07
DX: R07.89 Other chest pain (principal); I11.0 Hypertensive heart disease with heart failure; I50.9 Heart failure, unspecified; E78.5 Hyperlipidemia, unspecified; I25.2 Old myocardial infarction; M19.90 Unspecified osteoarthritis, unspecified site; F17.210 Nicotine dependence, cigarettes, uncomplicated; Z90.89 Acquired absence of other organs; Z98.61 Coronary angioplasty status; Z79.4 Long term (current) use of insulin; Z79.899 Other long term (current) drug therapy; Z88.6 Allergy status to analgesic agent; Z88.8 Allergy status to other drugs, medicaments and biological substances
CPT/HCPCS: 36415; 71045; 80053; 83735; 83880; 84484; 85025; 85610; 85730; 93005

== ENCOUNTER → 2021-12-03 | Outpatient (CLI) | payer OTHER, MEDICAID ==
[2021-12-03 11:18] LABS: Basophils # (auto) 0.1 10 ^3/uL (0-0.2); Eosinophils # (auto) 0.1 10 ^3/uL (0-0.8); Neutrophils # (auto) 4.1 10 ^3/uL (1.6-8.6)
[2021-12-03 11:21] LABS: Basophils % (auto) 1.3 % (0.0-2.0); Eosinophils % (auto) 1.1 % (0.0-7.0); Hematocrit 30.8 % (41.0-53.0); Hemoglobin 10.8 g/dL (13.5-17.5); Lymphocytes # (auto) 1.8 10 ^3/uL (0.4-5.4); Mean Corpuscular Hemoglobin 35.5 pg (28.0-32.0); Mean Corpuscular Hgb Conc. 35.2 g/dL (32.0-36.0); Mean Corpuscular Volume 100.8 fL (80.0-100.0); Monocytes # (auto) 0.6 10 ^3/uL (0-1.3); Monocytes % (auto) 8.4 % (0.0-12.0); Neutrophils % (auto) 62.2 % (37.0-80.0); Red Blood Cells 3.06 10^6/uL (4.5-5.90); Red Cell Distribution Width 13.6 % (11.8-14.3); White Blood Cell 6.6 10^3/uL (4.4-10.8)
[2021-12-03 11:29] LABS: INR 0.94 (0.9-1.15); Partial Thromboplastin Time 30.5 sec (23.6-33.0)
[2021-12-03 11:38] LABS: Urine Blood Negative /uL (Negative); Urine Specific Gravity 1.012 (1.001-1.035)
[2021-12-03 12:04] LABS: Potassium 4.1 mmol/L (3.5-5.1)
[2021-12-03 12:14] LABS: Albumin 3.6 g/dL (3.4-5.0); BUN/Creatinine Ratio 18.2; Bilirubin, Total 0.3 mg/dL (0.2-1.0); Calcium 8.2 mg/dL (8.5-10.1); Total Protein 6.2 g/dL (6.4-8.2)
== END | disposition home or self-care (01) ==
LOC: LAB 09:18
PROVIDERS: ATTEND Specialist
DX: Z01.812 Encounter for preprocedural laboratory examination (principal); H25.11 Age-related nuclear cataract, right eye; D68.9 Coagulation defect, unspecified; Z79.01 Long term (current) use of anticoagulants
CPT/HCPCS: 36415; 80053; 81003; 83036; 85025; 85610; 85652; 85730

== ENCOUNTER → 2022-01-12 | Outpatient (CLI) | payer OTHER, MEDICAID | END | disposition home or self-care (01) | LOC: LAB 09:57 | PROVIDERS: ATTEND Internal Medicine Gastroenterology | DX: R10.9 Unspecified abdominal pain (principal) | CPT/HCPCS: 36415; 82565; 84520 ==

== ENCOUNTER → 2022-02-02 | Outpatient (CLI) | payer OTHER | END | disposition home or self-care (01) | LOC: LAB 11:42 | PROVIDERS: ATTEND Internal Medicine Gastroenterology | DX: K51.90 Ulcerative colitis, unspecified, without complications (principal); R19.7 Diarrhea, unspecified | CPT/HCPCS: 87045; 87427; 87493 ==

== ENCOUNTER → 2022-03-25 | Outpatient (CLI) | payer OTHER ==
[2022-03-25 15:57] LABS: Basophils # (auto) 0.2 10 ^3/uL (0-0.2); Eosinophils # (auto) 0.1 10 ^3/uL (0-0.8); Mean Corpuscular Hgb Conc. 34.7 g/dL (32.0-36.0); Monocytes # (auto) 0.6 10 ^3/uL (0-1.3); Neutrophils # (auto) 5.6 10 ^3/uL (1.6-8.6); Red Blood Cells 3.15 10^6/uL (4.5-5.90)
[2022-03-25 15:59] LABS: Basophils % (auto) 2.8 % (0.0-2.0); Eosinophils % (auto) 0.8 % (0.0-7.0); Hematocrit 31.8 % (41.0-53.0); Lymphocytes # (auto) 2.1 10 ^3/uL (0.4-5.4); Lymphocytes % (auto) 24.8 % (10.0-50.0); Mean Corpuscular Volume 100.9 fL (80.0-100.0); Monocytes % (auto) 6.4 % (0.0-12.0); Neutrophils % (auto) 65.2 % (37.0-80.0); Red Cell Distribution Width 14.7 % (11.8-14.3); White Blood Cell 8.6 10^3/uL (4.4-10.8)
[2022-03-25 16:28] LABS: Albumin 3.7 g/dL (3.4-5.0); Calcium 8.4 mg/dL (8.5-10.1); Potassium 4.1 mmol/L (3.5-5.1)
[2022-03-25 16:32] LABS: BUN/Creatinine Ratio 23.3; Bilirubin, Total 0.4 mg/dL (0.2-1.0); Total Protein 6.4 g/dL (6.4-8.2)
[2022-03-25 16:42] LABS: INR 0.97 (0.9-1.15)
== END | disposition home or self-care (01) ==
LOC: LAB 15:40
PROVIDERS: ATTEND Specialist
DX: Z01.812 Encounter for preprocedural laboratory examination (principal); Z79.01 Long term (current) use of anticoagulants; H25.12 Age-related nuclear cataract, left eye
CPT/HCPCS: 36415; 80053; 85025; 85610; 85730

== ENCOUNTER → 2022-04-27 | Outpatient (CLI) | payer OTHER ==
[~2022-04-27] MED LIST changes: +APIX2.5T PO; +ERGO1CAP23 PO
== END | disposition home or self-care (01) ==
LOC: XYW 15:06
PROVIDERS: ATTEND Internal Medicine
DX: I35.8 Other nonrheumatic aortic valve disorders (principal); I25.10 Atherosclerotic heart disease of native coronary artery without angina pectoris
CPT/HCPCS: 93306

== ENCOUNTER → 2022-04-28 | Outpatient (CLI) | payer OTHER ==
[~2022-04-28] MED LIST changes: -APIX2.5T PO; -ERGO1CAP23 PO
[2022-04-28 13:15] LABS: Eosinophils # (auto) 0.1 10 ^3/uL (0-0.8); Eosinophils % (auto) 0.7 % (0.0-7.0); Monocytes # (auto) 0.7 10 ^3/uL (0-1.3); Neutrophils # (auto) 5.8 10 ^3/uL (1.6-8.6)
[2022-04-28 13:17] LABS: Basophils # (auto) 0 10 ^3/uL (0-0.2); Basophils % (auto) 0.6 % (0.0-2.0); Hematocrit 30.4 % (41.0-53.0); Hemoglobin 10.7 g/dL (13.5-17.5); Lymphocytes # (auto) 1.6 10 ^3/uL (0.4-5.4); Lymphocytes % (auto) 19.9 % (10.0-50.0); Mean Corpuscular Hemoglobin 35.5 pg (28.0-32.0); Mean Corpuscular Hgb Conc. 35.1 g/dL (32.0-36.0); Mean Corpuscular Volume 100.9 fL (80.0-100.0); Monocytes % (auto) 8.4 % (0.0-12.0); Neutrophils % (auto) 70.4 % (37.0-80.0); Red Blood Cells 3.02 10^6/uL (4.5-5.90); Red Cell Distribution Width 14.2 % (11.8-14.3); White Blood Cell 8.2 10^3/uL (4.4-10.8)
[2022-04-28 13:37] LABS: Calcium 8.2 mg/dL (8.5-10.1); Potassium 4.4 mmol/L (3.5-5.1)
[2022-04-28 13:43] LABS: Albumin 3.6 g/dL (3.4-5.0); BUN/Creatinine Ratio 23.8; Bilirubin, Total 0.3 mg/dL (0.2-1.0)
== END | disposition home or self-care (01) ==
LOC: LAB 12:10
PROVIDERS: ATTEND Internal Medicine Gastroenterology
DX: K51.90 Ulcerative colitis, unspecified, without complications (principal)
CPT/HCPCS: 36415; 80053; 85025; 86704; 86706; 86708; 86803; 87340

== ENCOUNTER 2022-05-06 08:43 | Inpatient (IN) | payer OTHER, MEDICAID ==
[~2022-05-06] VITALS: Ht 154.9 cm; Wt 58.5 kg
[2022-05-06 09:44] LABS: Basophils # (auto) 0.1 10 ^3/uL (0-0.2); Eosinophils # (auto) 0.1 10 ^3/uL (0-0.8); Monocytes # (auto) 0.9 10 ^3/uL (0-1.3); Neutrophils # (auto) 11.5 10 ^3/uL (1.6-8.6); White Blood Cell 14.2 10^3/uL (4.4-10.8)
[2022-05-06 09:46] LABS: Basophils % (auto) 0.5 % (0.0-2.0); Eosinophils % (auto) 0.5 % (0.0-7.0); Hematocrit 32.1 % (41.0-53.0); Hemoglobin 10.9 g/dL (13.5-17.5); Lymphocytes # (auto) 1.7 10 ^3/uL (0.4-5.4); Lymphocytes % (auto) 11.7 % (10.0-50.0); Mean Corpuscular Hemoglobin 34.3 pg (28.0-32.0); Mean Corpuscular Volume 100.8 fL (80.0-100.0); Monocytes % (auto) 6.4 % (0.0-12.0); Neutrophils % (auto) 80.9 % (37.0-80.0); Red Blood Cells 3.18 10^6/uL (4.5-5.90); Red Cell Distribution Width 14.2 % (11.8-14.3)
[2022-05-06 10:04] LABS: Albumin 3.4 g/dL (3.4-5.0); Calcium 7.8 mg/dL (8.5-10.1); Magnesium 2.5 mg/dL (1.6-2.6); Potassium 3.5 mmol/L (3.5-5.1)
[2022-05-06 10:07] LABS: Bilirubin, Total 0.4 mg/dL (0.2-1.0); Total Protein 5.6 g/dL (6.4-8.2)
[2022-05-06] MEDS ORDERED: HYDROcodone-ACET 10/325MG TAB PO ONE (10:15)
[2022-05-06 11:37] LABS: Urine Bacteria NONE SEEN /hpf (None Seen); Urine Blood Negative /uL (Negative); Urine Specific Gravity 1.009 (1.001-1.035); Urine WBC <1 /hpf (0 - 3)
[2022-05-06] MEDS ORDERED: ONDANSETRON HCL 4 MG/2 ML VIAL IV ONE (16:00)
[2022-05-06] MEDS ORDERED: MORPHINE SULFATE 4 MG/ML SYR/VIAL IV ONE (16:00)
[2022-05-06] MEDS ORDERED: ACETAMINOPHEN 325 MG TAB PO PRN (16:30)
[2022-05-06] MEDS ORDERED: HYDROcodone-ACET 5/325MG TAB PO PRN (16:30)
[2022-05-06] MEDS ORDERED: DOCUSATE SOD 100 MG CAP PO PRN (16:30)
[2022-05-06] MEDS ORDERED: MORPHINE SULFATE INJ 2 MG/ml SYRG IV PRN (16:30)
[2022-05-06] MEDS ORDERED: ONDANSETRON HCL 4 MG/2 ML VIAL IV PRN (16:30)
[2022-05-06] MEDS ORDERED: ACETAMINOPHEN 500 MG TAB PO PRN (16:45)
[2022-05-06] MEDS ORDERED: LORazepam 0.5 MG TAB PO PRN (16:45)
[2022-05-06] MEDS ORDERED: LACTULOSE 20Gm/30ML SOLN PO PRN (16:45)
[2022-05-06 17:54] LABS: INR 0.99 (0.9-1.15)
[2022-05-06] MEDS: SODIUM CHLORIDE 0.9% 1,000 ML IV SCH (19:03)
[2022-05-06 21:58] VITALS: BP 146/63
[2022-05-06] MEDS: MORPHINE SULFATE 4 MG/ML SYR/VIAL IV PRN (22:18)
[2022-05-07] VITALS (7 sets, daily range): BP systolic 140–173; BP diastolic 66–77
[2022-05-07] MEDS: MORPHINE SULFATE 4 MG/ML SYR/VIAL IV PRN (03:44)
[2022-05-07 05:42] LABS: Basophils # (auto) 0.1 10 ^3/uL (0-0.2); Basophils % (auto) 0.6 % (0.0-2.0); Eosinophils # (auto) 0.2 10 ^3/uL (0-0.8); Eosinophils % (auto) 1.6 % (0.0-7.0); Hemoglobin 11.6 g/dL (13.5-17.5); Mean Corpuscular Hemoglobin 34.9 pg (28.0-32.0); Mean Corpuscular Hgb Conc. 34.2 g/dL (32.0-36.0); Monocytes # (auto) 0.5 10 ^3/uL (0-1.3); Monocytes % (auto) 4.8 % (0.0-12.0); Neutrophils # (auto) 9.3 10 ^3/uL (1.6-8.6); Red Blood Cells 3.33 10^6/uL (4.5-5.90); Red Cell Distribution Width 14.5 % (11.8-14.3); White Blood Cell 11.1 10^3/uL (4.4-10.8)
[2022-05-07 06:01] LABS: Potassium 3.5 mmol/L (3.5-5.1)
[2022-05-07 06:05] LABS: Bilirubin, Total 0.7 mg/dL (0.2-1.0); Total Protein 5.6 g/dL (6.4-8.2)
[2022-05-07 06:10] LABS: BUN/Creatinine Ratio 18.9
[2022-05-07] MEDS: SODIUM CHLORIDE 0.9% 1,000 ML IV SCH (07:03)
[2022-05-07] MEDS ORDERED: ENOXAPARIN SOD 40 MG/0.4 ML SYRINGE SC SCH (10:00)
[2022-05-07] MEDS: HYDROcodone-ACET 5/325MG TAB PO PRN ×2 (11:52→21:49)
[2022-05-07] MEDS ORDERED: POTASSIUM CHL 20 Meq TABLET PO ONE (15:45)
[2022-05-07] MEDS: CARVEDILOL 12.5 MG TAB PO SCH (21:47)
[2022-05-07] MEDS: ENOXAPARIN SOD 60 MG/0.6 ML SYRINGE SC SCH (21:48)
[2022-05-08] MEDS: HYDROcodone-ACET 5/325MG TAB PO PRN ×4 (04:48→22:52)
[2022-05-08 05:00] VITALS: BP 171/79
[2022-05-08 06:40] LABS: INR 0.97 (0.9-1.15); Partial Thromboplastin Time 28.8 sec (23.6-33.0)
[2022-05-08 06:45] LABS: Basophils # (auto) 0 10 ^3/uL (0-0.2); Basophils % (auto) 0.4 % (0.0-2.0); Eosinophils # (auto) 0.1 10 ^3/uL (0-0.8); Eosinophils % (auto) 0.7 % (0.0-7.0); Lymphocytes # (auto) 0.8 10 ^3/uL (0.4-5.4); Neutrophils # (auto) 6.7 10 ^3/uL (1.6-8.6)
[2022-05-08 06:52] LABS: Hematocrit 33.7 % (41.0-53.0); Hemoglobin 11.5 g/dL (13.5-17.5); Lymphocytes % (auto) 10.2 % (10.0-50.0); Mean Corpuscular Hemoglobin 34.7 pg (28.0-32.0); Mean Corpuscular Hgb Conc. 34.2 g/dL (32.0-36.0); Mean Corpuscular Volume 101.4 fL (80.0-100.0); Monocytes # (auto) 0.4 10 ^3/uL (0-1.3); Monocytes % (auto) 5.5 % (0.0-12.0); Neutrophils % (auto) 83.2 % (37.0-80.0); Red Blood Cells 3.33 10^6/uL (4.5-5.90); Red Cell Distribution Width 14.2 % (11.8-14.3); White Blood Cell 8.1 10^3/uL (4.4-10.8)
[2022-05-08 07:00] LABS: Potassium 3.6 mmol/L (3.5-5.1)
[2022-05-08 07:04] LABS: Albumin 3.1 g/dL (3.4-5.0); BUN/Creatinine Ratio 29.5; Calcium 8.6 mg/dL (8.5-10.1)
[2022-05-08 07:09] LABS: Bilirubin, Total 0.6 mg/dL (0.2-1.0); Total Protein 5.8 g/dL (6.4-8.2)
[2022-05-08 08:00] VITALS: BP 160/70
[2022-05-08] MEDS ORDERED: hydrALAZINE HCL 20 MG/ML VL IV PRN (08:45)
[2022-05-08 08:58] VITALS: BP 168/58
[2022-05-08] MEDS: ENOXAPARIN SOD 60 MG/0.6 ML SYRINGE SC SCH ×2 (10:00→22:54)
[2022-05-08] MEDS: CARVEDILOL 12.5 MG TAB PO SCH ×2 (10:17→22:54)
[2022-05-08] MEDS ORDERED: VANCOMYCIN HCL 1000 MG VL ONE (12:42)
[2022-05-08 12:45] VITALS: BP 152/77
[2022-05-08] MEDS ORDERED: BUPIVACAINE 0.25% INJ 50ML VIAL ONE (12:55)
[2022-05-08] MEDS ORDERED: LIDOCAINE 1%HCL (LOCAL ANESTH) 10 ML MDV ONE (13:04)
[2022-05-08] MEDS ORDERED: MIDAZOLAM HCL 2MG/2ML 2ml VIAL (1mg/ml) ONE (13:06)
[2022-05-08] MEDS ORDERED: fentaNYL CITRATE 100 MCG/2 ML VL ONE ×2 (13:06→13:07)
[2022-05-08] MEDS ORDERED: ROCURONIUM 10MG/ML 10ML VIAL IV ONE (13:07)
[2022-05-08] MEDS ORDERED: ETOMIDATE (2MG/ML) 20ML VIAL IV ONE (14:44)
[2022-05-08] MEDS ORDERED: NEOSTIGMINE 1 MG/ML INJ (10mg/10ML VIAL) ONE (14:45)
[2022-05-08] MEDS ORDERED: GLYCOPYRROLATE 0.2 MG/ML 1ML VIAL ONE (14:45)
[2022-05-08] MEDS ORDERED: HYDROmorphone HCL 2 MG/ML VL/or syr ONE (14:53)
[2022-05-08] MEDS ORDERED: HYDROmorphone HCL 2 MG/ML VL/or syr IV PRN ×2 (15:00)
[2022-05-08] MEDS ORDERED: hydrALAZINE HCL 25 MG TAB PO ONE (16:15)
[2022-05-08] MEDS ORDERED: ERGOCALCIFEROL 50,000 UNIT(1.25MG) CAP PO SCH (16:30)
[2022-05-08 16:46] VITALS: BP 167/71
[2022-05-08] MEDS ORDERED: ONDANSETRON HCL 4 MG/2 ML VIAL IV ONE (17:14)
[2022-05-08 22:00] VITALS: BP 145/56
[2022-05-08] MEDS: VANCOMYCIN 1GM/250ML 250 ML IV SCH (22:52)
[2022-05-08] MEDS: MORPHINE SULFATE 4 MG/ML SYR/VIAL IV PRN (23:55)
[2022-05-09] VITALS (7 sets, daily range): BP systolic 90–161; BP diastolic 54–76
[2022-05-09] MEDS: MORPHINE SULFATE 4 MG/ML SYR/VIAL IV PRN ×2 (03:17→22:58)
[2022-05-09] MEDS: HYDROcodone-ACET 5/325MG TAB PO PRN ×3 (03:30→16:40)
[2022-05-09] MEDS: VANCOMYCIN 1GM/250ML 250 ML IV SCH (10:27)
[2022-05-09] MEDS: CARVEDILOL 12.5 MG TAB PO SCH ×3 (10:29→22:56)
[2022-05-09] MEDS: ENOXAPARIN SOD 60 MG/0.6 ML SYRINGE SC SCH ×2 (10:29→22:56)
[2022-05-10] MEDS: CARVEDILOL 12.5 MG TAB PO SCH ×3 (00:02→10:00)
[2022-05-10] MEDS: HYDROcodone-ACET 5/325MG TAB PO PRN ×2 (03:12→10:06)
[2022-05-10 05:00] VITALS: BP 146/76
[2022-05-10 07:58] VITALS: BP 149/71
[2022-05-10 08:00] VITALS: BP 149/71
[2022-05-10] MEDS: ENOXAPARIN SOD 60 MG/0.6 ML SYRINGE SC SCH (09:56)
[2022-05-10] MEDS ORDERED: ERGO1CAP23 PO (10:59)
[2022-05-10] MEDS ORDERED: APIX2.5T PO (10:59)
[2022-05-10 15:29] VITALS: BP 149/71
[2022-05-10 16:21] VITALS: BP 140/66
== END 2022-05-10 17:15 | disposition home or self-care (01) | DRG 482 ==
LOC: ER 08:43 → OVERFLOW 16:25 → WEST WING 21:10
PROVIDERS: ADMIT Internal Medicine; ATTEND Internal Medicine
PROC: 0QS634Z Reposition Right Upper Femur with Internal Fixation Device, Percutaneous Approach (ICD-10-PCS; principal; 2022-05-08 13:14)
DX: S72.001A Fracture of unspecified part of neck of right femur, initial encounter for closed fracture (principal); E78.5 Hyperlipidemia, unspecified; D63.8 Anemia in other chronic diseases classified elsewhere; M06.9 Rheumatoid arthritis, unspecified; I35.0 Nonrheumatic aortic (valve) stenosis; I11.0 Hypertensive heart disease with heart failure; I50.9 Heart failure, unspecified; I48.0 Paroxysmal atrial fibrillation; J44.9 Chronic obstructive pulmonary disease, unspecified; K21.9 Gastro-esophageal reflux disease without esophagitis; M16.12 Unilateral primary osteoarthritis, left hip; E11.42 Type 2 diabetes mellitus with diabetic polyneuropathy; E55.9 Vitamin D deficiency, unspecified; Z20.822 Contact with and (suspected) exposure to COVID-19; F32.A Depression, unspecified; Y93.01 Activity, walking, marching and hiking; N40.0 Benign prostatic hyperplasia without lower urinary tract symptoms; F17.210 Nicotine dependence, cigarettes, uncomplicated; E78.00 Pure hypercholesterolemia, unspecified; I25.10 Atherosclerotic heart disease of native coronary artery without angina pectoris; W18.39XA Other fall on same level, initial encounter; Z95.5 Presence of coronary angioplasty implant and graft; Z91.81 History of falling; Y92.090 Kitchen in other non-institutional residence as the place of occurrence of the external cause; Y99.8 Other external cause status; Z79.01 Long term (current) use of anticoagulants; Z79.4 Long term (current) use of insulin; Z79.899 Other long term (current) drug therapy; Z80.0 Family history of malignant neoplasm of digestive organs; Z83.3 Family history of diabetes mellitus; Z85.038 Personal history of other malignant neoplasm of large intestine; Z86.73 Personal history of transient ischemic attack (TIA), and cerebral infarction without residual deficits; Z87.11 Personal history of peptic ulcer disease
CPT/HCPCS: 36415; 71045; 73501; 73502; 73700; 76000; 80053; 81001; 82306; 83036; 83735; 83880; 84484; 85025; 85610; 85730; 86850; 86900; 86901; 93005; 96361; 96374; 96375; 97110; 97116; 97163; 97530; A4565; G0378; J2001; J2250; J2405; J3490

== ENCOUNTER 2022-07-22 07:20 | Day surgery (SDC) | payer OTHER, MEDICAID ==
[2022-07-13 11:52] LABS: Basophils # (auto) 0.1 10 ^3/uL (0-0.2); Eosinophils # (auto) 0.1 10 ^3/uL (0-0.8); Lymphocytes # (auto) 1.8 10 ^3/uL (0.4-5.4); White Blood Cell 8.1 10^3/uL (4.4-10.8)
[2022-07-13 11:54] LABS: Basophils % (auto) 1.3 % (0.0-2.0); Eosinophils % (auto) 0.8 % (0.0-7.0); Hematocrit 29.7 % (41.0-53.0); Hemoglobin 9.8 g/dL (13.5-17.5); Lymphocytes % (auto) 22.5 % (10.0-50.0); Mean Corpuscular Hemoglobin 33.6 pg (28.0-32.0); Mean Corpuscular Volume 101.7 fL (80.0-100.0); Monocytes # (auto) 0.7 10 ^3/uL (0-1.3); Neutrophils # (auto) 5.3 10 ^3/uL (1.6-8.6); Neutrophils % (auto) 66.4 % (37.0-80.0); Red Blood Cells 2.93 10^6/uL (4.5-5.90); Red Cell Distribution Width 14.6 % (11.8-14.3)
[2022-07-13 12:08] LABS: INR 0.92 (0.9-1.15); Partial Thromboplastin Time 32.5 sec (24.6-33.4)
[2022-07-13 12:43] LABS: Potassium 4.1 mmol/L (3.5-5.1)
[2022-07-13 12:50] LABS: Albumin 3.2 g/dL (3.4-5.0); BUN/Creatinine Ratio 17.9; Bilirubin, Total 0.5 mg/dL (0.2-1.0); Calcium 8.1 mg/dL (8.5-10.1)
[2022-07-20 11:20] LABS: Basophils # (auto) 0.1 10 ^3/uL (0-0.2); Basophils % (auto) 1.3 % (0.0-2.0); Eosinophils # (auto) 0.1 10 ^3/uL (0-0.8); Eosinophils % (auto) 0.9 % (0.0-7.0); Hematocrit 30.4 % (41.0-53.0); Hemoglobin 10.2 g/dL (13.5-17.5); Lymphocytes # (auto) 1.8 10 ^3/uL (0.4-5.4); Lymphocytes % (auto) 20.6 % (10.0-50.0); Mean Corpuscular Hgb Conc. 33.6 g/dL (32.0-36.0); Mean Corpuscular Volume 101.2 fL (80.0-100.0); Monocytes # (auto) 0.8 10 ^3/uL (0-1.3); Monocytes % (auto) 9.1 % (0.0-12.0); Neutrophils % (auto) 68.1 % (37.0-80.0); Red Cell Distribution Width 14.6 % (11.8-14.3); White Blood Cell 8.9 10^3/uL (4.4-10.8)
[2022-07-20 11:32] LABS: INR 0.92 (0.9-1.15); Partial Thromboplastin Time 31.3 sec (24.6-33.4)
[2022-07-20 12:54] LABS: Potassium 5.3 mmol/L (3.5-5.1)
[2022-07-20 13:44] LABS: Albumin 3.2 g/dL (3.4-5.0); BUN/Creatinine Ratio 17.7; Bilirubin, Total 0.8 mg/dL (0.2-1.0); Calcium 8.4 mg/dL (8.5-10.1); Total Protein 9.1 g/dL (6.4-8.2)
[~2022-07-22] VITALS: Ht 154.9 cm; Wt 54.4 kg
[~2022-07-22 07:20] MED LIST changes: +ALBU0.08 HHN; +APIX2.5T PO; +CAR125T PO; -CARV12.544 PO; +CLOP75TA28 PO; -GABA300C10 PO; -INSUINJ37 SC; +MESA800T2 PO; +TRAM50TA2 PO
[2022-07-22] MEDS ORDERED: LIDOCAINE 2%HCL (LOCAL ANESTH.) INJ 20ML MDV ONE (07:51)
[2022-07-22] MEDS ORDERED: fentaNYL CITRATE 100 MCG/2 ML VL ONE (09:05)
[2022-07-22] MEDS ORDERED: ANGIOMAX 250 MG VIAL IV ONE (09:05)
[2022-07-22] MEDS ORDERED: MIDAZOLAM HCL 2MG/2ML 2ml VIAL (1mg/ml) ONE (09:05)
[2022-07-22] MEDS ORDERED: SODIUM CHL 0.9% 0 ML ONE (09:05)
[2022-07-22] MEDS ORDERED: APIX2.5T PO ×2 (10:44)
[2022-07-22] MEDS ORDERED: traMADol HCL 50 MG TAB PO ONE (10:45)
== END 2022-07-22 14:53 | disposition home or self-care (01) ==
LOC: CATH 07:20
PROVIDERS: ATTEND Internal Medicine
DX: I35.0 Nonrheumatic aortic (valve) stenosis (principal); I25.119 Atherosclerotic heart disease of native coronary artery with unspecified angina pectoris; I50.9 Heart failure, unspecified; F41.9 Anxiety disorder, unspecified; J43.9 Emphysema, unspecified; F17.200 Nicotine dependence, unspecified, uncomplicated; Z82.49 Family history of ischemic heart disease and other diseases of the circulatory system; Z95.5 Presence of coronary angioplasty implant and graft; Z83.3 Family history of diabetes mellitus; Z80.0 Family history of malignant neoplasm of digestive organs; Z82.69 Family history of other diseases of the musculoskeletal system and connective tissue; Z20.822 Contact with and (suspected) exposure to COVID-19
CPT/HCPCS: 36415; 80053; 85025; 85610; 85730; 93460; C1751; C1760; C1769; C1894; J1644; J2250; J3010; U0003; 99152; 99153

== ENCOUNTER → 2022-07-27 | Outpatient (CLI) | payer OTHER, MEDICAID ==
[2022-07-27 08:53] LABS: BUN/Creatinine Ratio 16.1; Calcium 8.1 mg/dL (8.5-10.1)
== END | disposition home or self-care (01) ==
LOC: LAB 07:44
PROVIDERS: ATTEND Internal Medicine
DX: E11.9 Type 2 diabetes mellitus without complications (principal); M06.9 Rheumatoid arthritis, unspecified
CPT/HCPCS: 36415; 80048; 85652

== ENCOUNTER → 2022-08-31 | Emergency (ER) | payer OTHER, MEDICAID ==
[~2022-08-31] VITALS: Ht 154.9 cm; Wt 54.0 kg
[2022-08-31 14:20] LABS: Basophils # (auto) 0.1 10 ^3/uL (0-0.2); Basophils % (auto) 0.9 % (0.0-2.0); Eosinophils # (auto) 0.1 10 ^3/uL (0-0.8); Eosinophils % (auto) 0.7 % (0.0-7.0); Hematocrit 29.6 % (41.0-53.0); Lymphocytes # (auto) 2.3 10 ^3/uL (0.4-5.4); Lymphocytes % (auto) 23.7 % (10.0-50.0); Mean Corpuscular Hemoglobin 33.8 pg (28.0-32.0); Mean Corpuscular Volume 99.4 fL (80.0-100.0); Monocytes # (auto) 0.9 10 ^3/uL (0-1.3); Monocytes % (auto) 8.9 % (0.0-12.0); Neutrophils # (auto) 6.5 10 ^3/uL (1.6-8.6); Neutrophils % (auto) 65.8 % (37.0-80.0); Nucleated Red Blood Cells % 0.2 %; Red Blood Cells 2.97 10^6/uL (4.5-5.90); Red Cell Distribution Width 15.2 % (11.8-14.3); White Blood Cell 9.8 10^3/uL (4.4-10.8)
[2022-08-31 14:23] LABS: Alanine Aminotransferase 23 U/L (16-61); Albumin 3.1 g/dL (3.4-5.0); Anion Gap 10 (5-15); Aspartate Aminotransferase 14 U/L (15-37); BUN/Creatinine Ratio 18.3; Blood Urea Nitrogen 11 mg/dL (7-18); Calcium 8.2 mg/dL (8.5-10.1); Carbon Dioxide 26 mmol/L (21-32); Chloride 98 mmol/L (98-107); GFR African American 168 mL/min; GFR Non-African American 139 mL/min; Glucose 79 mg/dL (74-106); Sodium 134 mmol/L (136-145)
[2022-08-31 14:25] LABS: Alkaline Phosphatase 120 U/L (45-117); Bilirubin, Total 0.3 mg/dL (0.2-1.0)
[2022-08-31 14:30] LABS: INR 0.92 (0.9-1.15); Partial Thromboplastin Time 30.4 sec (24.6-33.4)
[2022-08-31 16:18] VITALS: BP 110/59
== END | disposition home or self-care (01) ==
LOC: ER 13:24
DX: R04.0 Epistaxis (principal); I11.0 Hypertensive heart disease with heart failure; I50.9 Heart failure, unspecified; I25.2 Old myocardial infarction; E11.9 Type 2 diabetes mellitus without complications; E78.5 Hyperlipidemia, unspecified; K21.9 Gastro-esophageal reflux disease without esophagitis; F17.210 Nicotine dependence, cigarettes, uncomplicated; Z86.73 Personal history of transient ischemic attack (TIA), and cerebral infarction without residual deficits; Z90.49 Acquired absence of other specified parts of digestive tract; Z90.89 Acquired absence of other organs; Z79.899 Other long term (current) drug therapy; Z88.0 Allergy status to penicillin; Z88.1 Allergy status to other antibiotic agents; Z88.8 Allergy status to other drugs, medicaments and biological substances
CPT/HCPCS: 36415; 71045; 80053; 84484; 85025; 85610; 85730

== ENCOUNTER 2022-09-02 08:18 | Emergency (ER) | payer OTHER, MEDICAID ==
[~2022-09-02] VITALS: Ht 157.5 cm; Wt 54.5 kg
[2022-09-02 08:42] VITALS: BP 124/68
== END 2022-09-02 09:08 ==
LOC: ER 08:18
DX: R04.0 Epistaxis (principal); I11.0 Hypertensive heart disease with heart failure; I50.9 Heart failure, unspecified; I25.2 Old myocardial infarction; E11.9 Type 2 diabetes mellitus without complications; E78.5 Hyperlipidemia, unspecified; K21.9 Gastro-esophageal reflux disease without esophagitis; F17.210 Nicotine dependence, cigarettes, uncomplicated; Z86.73 Personal history of transient ischemic attack (TIA), and cerebral infarction without residual deficits; Z90.49 Acquired absence of other specified parts of digestive tract; Z90.89 Acquired absence of other organs; Z79.899 Other long term (current) drug therapy; Z79.01 Long term (current) use of anticoagulants; Z88.0 Allergy status to penicillin; Z88.1 Allergy status to other antibiotic agents; Z88.2 Allergy status to sulfonamides; Z88.8 Allergy status to other drugs, medicaments and biological substances

== ENCOUNTER 2022-11-16 06:20 | Inpatient (IN) | payer OTHER, MEDICAID ==
[2022-11-13 12:20] LABS: Basophils # (auto) 0.1 10 ^3/uL (0-0.2); Eosinophils # (auto) 0.1 10 ^3/uL (0-0.8); Eosinophils % (auto) 1.1 % (0.0-7.0); Hematocrit 28.9 % (41.0-53.0); Lymphocytes # (auto) 1.7 10 ^3/uL (0.4-5.4); Lymphocytes % (auto) 15.3 % (10.0-50.0); Mean Corpuscular Hemoglobin 34.4 pg (28.0-32.0); Mean Corpuscular Hgb Conc. 34.7 g/dL (32.0-36.0); Mean Corpuscular Volume 99.1 fL (80.0-100.0); Monocytes % (auto) 8.4 % (0.0-12.0); Neutrophils # (auto) 8.5 10 ^3/uL (1.6-8.6); Neutrophils % (auto) 74.2 % (37.0-80.0); Red Blood Cells 2.91 10^6/uL (4.5-5.90); Red Cell Distribution Width 15.8 % (11.8-14.3); White Blood Cell 11.4 10^3/uL (4.4-10.8)
[2022-11-13 12:26] LABS: Urine Bacteria NONE SEEN /hpf (None Seen); Urine Blood Negative /uL (Negative); Urine Specific Gravity 1.009 (1.001-1.035); Urine WBC <1 /hpf (0 - 3)
[2022-11-13 12:28] LABS: INR 0.91 (0.9-1.15); Partial Thromboplastin Time 30.3 sec (24.6-33.4)
[2022-11-13 13:01] LABS: Albumin 3.3 g/dL (3.4-5.0); Calcium 8.4 mg/dL (8.5-10.1); Potassium 4.4 mmol/L (3.5-5.1)
[2022-11-13 13:07] LABS: BUN/Creatinine Ratio 18.4; Bilirubin, Total 0.5 mg/dL (0.2-1.0); Total Protein 6.4 g/dL (6.4-8.2)
[~2022-11-16] VITALS: Ht 154.9 cm; Wt 56.5 kg
[2022-11-16] MEDS ORDERED: BUPIVACAINE 0.5% P/F INJ 10 ML VIAL ONE ×3 (06:32→10:14)
[2022-11-16] MEDS ORDERED: TRANEXAMIC ACID 20 ML ONE (06:44)
[2022-11-16] MEDS ORDERED: KETOROLAC TROMETH 30 MG/ML 1ML VIAL ONE (06:46)
[2022-11-16] MEDS: VANCOMYCIN HCL 1000 MG VL ONE ×2 (07:56→09:23)
[2022-11-16] MEDS ORDERED: fentaNYL CITRATE 100 MCG/2 ML VL ONE ×2 (08:01→08:46)
[2022-11-16] MEDS ORDERED: HYDROmorphone HCL 2 MG/ML VL/or syr ONE ×2 (08:01→10:09)
[2022-11-16] MEDS ORDERED: MIDAZOLAM HCL 2MG/2ML 2ml VIAL (1mg/ml) ONE ×2 (08:02→08:46)
[2022-11-16] MEDS ORDERED: DexAMETHasone SOD PHOS 10MG/1ML VIAL INJ ONE (08:38)
[2022-11-16] MEDS ORDERED: ETOMIDATE (2MG/ML) 20ML VIAL IV ONE (08:45)
[2022-11-16] MEDS ORDERED: MORPHINE SULF PF 5 MG/10 ML VIAL ONE (09:09)
[2022-11-16] MEDS ORDERED: FUROSEMIDE 40 MG TAB PO SCH (10:00)
[2022-11-16] MEDS ORDERED: HYDROmorphone HCL 2 MG/ML VL/or syr IV PRN (10:00)
[2022-11-16] MEDS ORDERED: ALPRAZolam 0.5 MG TAB PO PRN (10:00)
[2022-11-16] MEDS ORDERED: MORPHINE SULFATE INJ 2 MG/ml SYRG IV PRN (10:00)
[2022-11-16] MEDS ORDERED: DOCUSATE SOD 100 MG CAP PO PRN (10:00)
[2022-11-16] MEDS ORDERED: ONDANSETRON HCL 4 MG/2 ML VIAL IV PRN ×2 (10:00→10:15)
[2022-11-16] MEDS ORDERED: LACTATED RINGER'S 1,000 ML IV SCH ×2 (10:00→14:30)
[2022-11-16] MEDS ORDERED: NITROGLYCERIN 0.4 MG SL TAB SL PRN (10:00)
[2022-11-16] MEDS ORDERED: CARVEDILOL 12.5 MG TAB PO SCH (10:00)
[2022-11-16] MEDS ORDERED: POTASSIUM CHL 10 Meq TABLET PO SCH (10:00)
[2022-11-16] MEDS: HYDROmorphone HCL 2 MG/ML VL/or syr IV PRN ×2 (10:12→11:30)
[2022-11-16] MEDS ORDERED: DexAMETHasone SOD PHOS 4 MG/1ML SDV INJ ONE (10:14)
[2022-11-16] MEDS ORDERED: LIDOCAINE W/ EPINEPHRINE 2% INJ 20ML VIAL ONE (10:14)
[2022-11-16] MEDS ORDERED: ePHEDrine SULFATE 50 MG/ML AMP IV PRN (10:15)
[2022-11-16] MEDS ORDERED: MORPHINE SULFATE 4 MG/ML SYR/VIAL IV PRN (10:15)
[2022-11-16] MEDS ORDERED: LABETALOL HCL 5 MG/ML 4ML SYRINGE IV PRN (10:15)
[2022-11-16] MEDS ORDERED: MIDAZOLAM HCL 2MG/2ML 2ml VIAL (1mg/ml) IV PRN (10:15)
[2022-11-16] MEDS ORDERED: ACCU-CHEK COMFORT CURVE STRIP VI ONE ×2 (10:15→22:00)
[2022-11-16] MEDS: ACCU-CHEK COMFORT CURVE STRIP VI SCH ×2 (11:30→17:31)
[2022-11-16] MEDS: SODIUM CHLOR 0.9% PF (SALINE LOCK) 10ML VIAL/SYR IV SCH ×2 (14:00→22:00)
[2022-11-16] MEDS ORDERED: LACTULOSE 20Gm/30ML SOLN PO PRN (14:00)
[2022-11-16] MEDS ORDERED: ALBUTEROL MEDNEB 2.5 mg/3ml NEB HHN PRN (15:15)
[2022-11-16 16:18] VITALS: BP 111/58
[2022-11-16 17:00] VITALS: BP 111/58
[2022-11-16] MEDS ORDERED: TAMSULOSIN HYDROCHLORIDE 0.4 MG CAP PO SCH (18:00)
[2022-11-16] MEDS ORDERED: DEXTROSE (50%) 50ML SYRG IV ONE (21:15)
[2022-11-16] MEDS: ATORVASTATIN 20 MG TAB PO SCH (21:36)
[2022-11-16] MEDS: VANCOMYCIN 1GM/250ML 250 ML IV SCH (21:36)
[2022-11-16] MEDS: FERROUS SULFATE 325mg EC TAB PO SCH (21:37)
[2022-11-16] MEDS: DULoxetine HCL 30 MG CAP PO SCH (21:37)
[2022-11-16] MEDS: MONTELUKAST SODIUM 10 MG TAB PO SCH (21:37)
[2022-11-16 21:42] VITALS: BP 133/73
[2022-11-16] MEDS ORDERED: MAGNESIUM OXIDE 400 MG TAB PO SCH (22:00)
[2022-11-16 22:08] VITALS: BP 133/73
[2022-11-16] MEDS ORDERED: DEXTROSE (50%) 50ML SYRG IV PRN (22:15)
[2022-11-17] VITALS (8 sets, daily range): BP systolic 131–154; BP diastolic 58–80
[2022-11-17] MEDS ORDERED: InsuLIN REG 1unit/0.01ml Soln (100units/ml) SC ONE
[2022-11-17] MEDS ORDERED: ACCU-CHEK COMFORT CURVE STRIP VI SCH
[2022-11-17] MEDS: InsuLIN REG 1unit/0.01ml Soln (100units/ml) SC SCH ×4 (00:09→18:44)
[2022-11-17] MEDS: HYDROcodone-ACET 10/325MG TAB PO PRN ×3 (00:14→16:18)
[2022-11-17] MEDS: ACCU-CHEK COMFORT CURVE STRIP VI SCH ×4 (00:15→18:00)
[2022-11-17 05:13] LABS: Basophils # (auto) 0 10 ^3/uL (0-0.2); Eosinophils # (auto) 0 10 ^3/uL (0-0.8); Lymphocytes # (auto) 1.7 10 ^3/uL (0.4-5.4); Lymphocytes % (auto) 11.2 % (10.0-50.0); Neutrophils # (auto) 11.9 10 ^3/uL (1.6-8.6); Nucleated Red Blood Cells % 0.1 %; White Blood Cell 15.2 10^3/uL (4.4-10.8)
[2022-11-17 05:15] LABS: Basophils % (auto) 0.2 % (0.0-2.0); Hematocrit 18.2 % (41.0-53.0); Mean Corpuscular Hemoglobin 33.4 pg (28.0-32.0); Mean Corpuscular Hgb Conc. 33.6 g/dL (32.0-36.0); Mean Corpuscular Volume 99.5 fL (80.0-100.0); Monocytes # (auto) 1.6 10 ^3/uL (0-1.3); Monocytes % (auto) 10.3 % (0.0-12.0); Neutrophils % (auto) 78.3 % (37.0-80.0); Red Blood Cells 1.82 10^6/uL (4.5-5.90); Red Cell Distribution Width 15.7 % (11.8-14.3)
[2022-11-17] MEDS: SODIUM CHLOR 0.9% PF (SALINE LOCK) 10ML VIAL/SYR IV SCH ×3 (05:23→22:25)
[2022-11-17 05:27] LABS: Hemoglobin 6.1 g/dL (13.5-17.5)
[2022-11-17] MEDS: traMADol HCL 50 MG TAB PO PRN ×2 (05:27→22:27)
[2022-11-17 05:30] LABS: Albumin 2.6 g/dL (3.4-5.0); Potassium 4.1 mmol/L (3.5-5.1)
[2022-11-17 05:32] LABS: BUN/Creatinine Ratio 22.1
[2022-11-17 05:35] LABS: Bilirubin, Total 0.3 mg/dL (0.2-1.0); Total Protein 4.8 g/dL (6.4-8.2)
[2022-11-17] MEDS: PANTOPRAZOLE 40 MG TAB PO SCH (06:41)
[2022-11-17] MEDS: FOLIC ACID 800 MCG PO SCH (06:48)
[2022-11-17] MEDS: FERROUS SULFATE 325mg EC TAB PO SCH ×2 (09:54→22:26)
[2022-11-17] MEDS: VANCOMYCIN 1GM/250ML 250 ML IV SCH (09:54)
[2022-11-17] MEDS: CLOPIDOGREL BISULFATE 75 MG TAB PO SCH (09:54)
[2022-11-17] MEDS: ATORVASTATIN 20 MG TAB PO SCH (22:26)
[2022-11-17] MEDS: DULoxetine HCL 30 MG CAP PO SCH (22:26)
[2022-11-17] MEDS: MONTELUKAST SODIUM 10 MG TAB PO SCH (22:27)
[2022-11-17 23:24] LABS: Hematocrit 23.7 % (41.0-53.0); Hemoglobin 7.8 g/dL (13.5-17.5)
[2022-11-18] MEDS: ACCU-CHEK COMFORT CURVE STRIP VI SCH ×4 (00:55→18:01)
[2022-11-18] MEDS: HYDROcodone-ACET 10/325MG TAB PO PRN ×3 (01:10→22:45)
[2022-11-18 04:57] VITALS: BP 150/67
[2022-11-18] MEDS: InsuLIN REG 1unit/0.01ml Soln (100units/ml) SC SCH ×4 (06:00→18:00)
[2022-11-18] MEDS: SODIUM CHLOR 0.9% PF (SALINE LOCK) 10ML VIAL/SYR IV SCH ×3 (06:24→22:39)
[2022-11-18] MEDS: traMADol HCL 50 MG TAB PO PRN ×2 (06:25→14:45)
[2022-11-18] MEDS: FOLIC ACID 800 MCG PO SCH (06:25)
[2022-11-18] MEDS: PANTOPRAZOLE 40 MG TAB PO SCH (06:25)
[2022-11-18 06:36] LABS: Potassium 3.4 mmol/L (3.5-5.1)
[2022-11-18 06:39] LABS: Basophils # (auto) 0 10 ^3/uL (0-0.2); Eosinophils # (auto) 0 10 ^3/uL (0-0.8); Eosinophils % (auto) 0.2 % (0.0-7.0); Hematocrit 22.7 % (41.0-53.0); White Blood Cell 11.1 10^3/uL (4.4-10.8)
[2022-11-18 06:41] LABS: Basophils % (auto) 0.2 % (0.0-2.0); Hemoglobin 7.6 g/dL (13.5-17.5); Lymphocytes # (auto) 1.3 10 ^3/uL (0.4-5.4); Lymphocytes % (auto) 11.8 % (10.0-50.0); Mean Corpuscular Hemoglobin 32.5 pg (28.0-32.0); Mean Corpuscular Hgb Conc. 33.3 g/dL (32.0-36.0); Mean Corpuscular Volume 97.6 fL (80.0-100.0); Monocytes # (auto) 1.3 10 ^3/uL (0-1.3); Monocytes % (auto) 11.4 % (0.0-12.0); Neutrophils # (auto) 8.5 10 ^3/uL (1.6-8.6); Neutrophils % (auto) 76.4 % (37.0-80.0); Nucleated Red Blood Cells % 0.2 %; Red Blood Cells 2.33 10^6/uL (4.5-5.90); Red Cell Distribution Width 16.2 % (11.8-14.3)
[2022-11-18 09:00] VITALS: BP 149/67
[2022-11-18] MEDS: FERROUS SULFATE 325mg EC TAB PO SCH ×2 (09:48→22:39)
[2022-11-18] MEDS: CLOPIDOGREL BISULFATE 75 MG TAB PO SCH (09:48)
[2022-11-18] MEDS ORDERED: POTASSIUM CHL 20 Meq TABLET PO ONE (11:45)
[2022-11-18 13:00] VITALS: BP 152/72
[2022-11-18 17:00] VITALS: BP 142/67
[2022-11-18 22:00] VITALS: BP 150/68
[2022-11-18] MEDS: MONTELUKAST SODIUM 10 MG TAB PO SCH (22:40)
[2022-11-18] MEDS: DULoxetine HCL 30 MG CAP PO SCH (22:40)
[2022-11-18] MEDS: ATORVASTATIN 20 MG TAB PO SCH (22:40)
[2022-11-19] MEDS: ACCU-CHEK COMFORT CURVE STRIP VI SCH ×3 (01:28→12:00)
[2022-11-19 05:00] VITALS: BP 156/71
[2022-11-19 05:28] LABS: Basophils # (auto) 0 10 ^3/uL (0-0.2); Basophils % (auto) 0.3 % (0.0-2.0); Eosinophils # (auto) 0.2 10 ^3/uL (0-0.8); Eosinophils % (auto) 1.7 % (0.0-7.0); Hemoglobin 8.6 g/dL (13.5-17.5); Lymphocytes # (auto) 1.2 10 ^3/uL (0.4-5.4); Mean Corpuscular Hgb Conc. 34.3 g/dL (32.0-36.0); Mean Corpuscular Volume 96.2 fL (80.0-100.0); Monocytes % (auto) 10.5 % (0.0-12.0); Neutrophils # (auto) 6.8 10 ^3/uL (1.6-8.6); Neutrophils % (auto) 74.5 % (37.0-80.0); Nucleated Red Blood Cells % 0.2 %; Red Cell Distribution Width 15.7 % (11.8-14.3); White Blood Cell 9.2 10^3/uL (4.4-10.8)
[2022-11-19 05:41] LABS: Potassium 3.6 mmol/L (3.5-5.1)
[2022-11-19 05:49] LABS: BUN/Creatinine Ratio 17.1
[2022-11-19] MEDS: InsuLIN REG 1unit/0.01ml Soln (100units/ml) SC SCH ×3 (06:00→12:00)
[2022-11-19] MEDS: FOLIC ACID 800 MCG PO SCH (06:14)
[2022-11-19] MEDS: SODIUM CHLOR 0.9% PF (SALINE LOCK) 10ML VIAL/SYR IV SCH ×2 (06:14→14:00)
[2022-11-19] MEDS: PANTOPRAZOLE 40 MG TAB PO SCH (06:28)
[2022-11-19] MEDS: HYDROcodone-ACET 10/325MG TAB PO PRN (06:28)
[2022-11-19 08:20] VITALS: BP 146/73
[2022-11-19] MEDS: CLOPIDOGREL BISULFATE 75 MG TAB PO SCH (10:23)
[2022-11-19] MEDS: FERROUS SULFATE 325mg EC TAB PO SCH (10:24)
[2022-11-19 12:15] VITALS: BP 154/74
[2022-11-19 14:05] VITALS: BP 154/74
== END 2022-11-19 17:04 | disposition home health service (06) | DRG 469 ==
LOC: SUR 06:20 → TELE 09:57 → TELE-EAST 15:59
PROVIDERS: ADMIT Orthopaedic Surgery Adult Reconstructive Orthopaedic Surgery; ATTEND Internal Medicine
PROC: 0SRR019 Replacement of Right Hip Joint, Femoral Surface with Metal Synthetic Substitute, Cemented, Open Approach (ICD-10-PCS; principal; 2022-11-17)
PROC: 0SP904Z Removal of Internal Fixation Device from Right Hip Joint, Open Approach (ICD-10-PCS; 2022-11-17)
PROC: 30233N1 Transfusion of Nonautologous Red Blood Cells into Peripheral Vein, Percutaneous Approach (ICD-10-PCS; 2022-11-17)
DX: M12.551 Traumatic arthropathy, right hip (principal); L89.153 Pressure ulcer of sacral region, stage 3; I25.10 Atherosclerotic heart disease of native coronary artery without angina pectoris; E11.9 Type 2 diabetes mellitus without complications; E78.5 Hyperlipidemia, unspecified; F32.A Depression, unspecified; G89.29 Other chronic pain; I35.0 Nonrheumatic aortic (valve) stenosis; F17.200 Nicotine dependence, unspecified, uncomplicated; N40.0 Benign prostatic hyperplasia without lower urinary tract symptoms; J44.9 Chronic obstructive pulmonary disease, unspecified; Z95.1 Presence of aortocoronary bypass graft; Z79.02 Long term (current) use of antithrombotics/antiplatelets; D64.9 Anemia, unspecified; S72.001S Fracture of unspecified part of neck of right femur, sequela; Z88.1 Allergy status to other antibiotic agents; Z88.5 Allergy status to narcotic agent; Z88.0 Allergy status to penicillin; Z88.8 Allergy status to other drugs, medicaments and biological substances; Z20.822 Contact with and (suspected) exposure to COVID-19
CPT/HCPCS: 36415; 71045; 72170; 80048; 80053; 81001; 82962; 85014; 85018; 85025; 85610; 85730; 86850; 86900; 86901; 86920; 97110; 97116; 97530; G0378; J1100; J1815; J1885; J2250; J3490

== ENCOUNTER 2022-11-21 13:21 | Emergency (ER) | payer OTHER, MEDICAID ==
[~2022-11-21] VITALS: Ht 157.5 cm; Wt 54.5 kg
[2022-11-21] MEDS ORDERED: SODIUM CHLORIDE 0.9% 1,000 ML IV ONE ×2 (14:00)
[2022-11-21 14:26] LABS: Hematocrit 26.8 % (41.0-53.0); Mean Corpuscular Hemoglobin 32.3 pg (28.0-32.0); Mean Corpuscular Hgb Conc. 33.6 g/dL (32.0-36.0); Mean Corpuscular Volume 96.3 fL (80.0-100.0); Red Blood Cells 2.78 10^6/uL (4.5-5.90); Red Cell Distribution Width 15.3 % (11.8-14.3); White Blood Cell 14.1 10^3/uL (4.4-10.8)
[2022-11-21 14:35] LABS: Basophils % (manual) 0 (0.0-2.0); Blast Cells 0; Metamyelocytes % 0; Myelocytes % 0; Promyelocytes % 0; Reactive Lymphocytes 0
[2022-11-21 14:40] LABS: INR 0.88 (0.9-1.15); Partial Thromboplastin Time 23.9 sec (24.6-33.4)
[2022-11-21 14:48] LABS: Albumin 2.9 g/dL (3.4-5.0); Calcium 7.5 mg/dL (8.5-10.1); Potassium 3.9 mmol/L (3.5-5.1)
[2022-11-21 14:51] LABS: Lactic Acid w/Reflex 3.3 mmol/L (0.4-2.0)
[2022-11-21 14:52] LABS: BUN/Creatinine Ratio 16.6; Bilirubin, Total 0.6 mg/dL (0.2-1.0); Total Protein 5.3 g/dL (6.4-8.2)
[2022-11-21 14:57] LABS: Band Neutrophils % (manual) 11; Eosinophils % (manual) 1 (0-7); Lymphocytes % (manual) 12 (10.0-50.0); Monocytes % (manual) 7 (0-12)
[2022-11-21] MEDS ORDERED: PIPERACILLIN-TAZOB 3.375GM 100 ML IV ONE (15:00)
[2022-11-21 15:05] VITALS: BP 94/53
== END 2022-11-21 16:39 | disposition left against medical advice (07) ==
LOC: ER 13:21
DX: M25.551 Pain in right hip (principal); R53.1 Weakness; F17.210 Nicotine dependence, cigarettes, uncomplicated; F41.9 Anxiety disorder, unspecified; K21.9 Gastro-esophageal reflux disease without esophagitis; E78.5 Hyperlipidemia, unspecified; I11.0 Hypertensive heart disease with heart failure; E11.9 Type 2 diabetes mellitus without complications; Z88.1 Allergy status to other antibiotic agents; Z88.5 Allergy status to narcotic agent; Z88.0 Allergy status to penicillin; Z88.2 Allergy status to sulfonamides; Z79.899 Other long term (current) drug therapy; Z90.49 Acquired absence of other specified parts of digestive tract; Z90.89 Acquired absence of other organs; Z98.890 Other specified postprocedural states
CPT/HCPCS: 36415; 73700; 80053; 83605; 84484; 85007; 85027; 85610; 85730; 87040

== ENCOUNTER 2022-11-22 08:04 | Inpatient (IN) | payer OTHER, MEDICAID ==
[~2022-11-22] VITALS: Ht 154.9 cm; Wt 59.1 kg
[2022-11-22] MEDS ORDERED: PIPERACILLIN-TAZOB 3.375GM 100 ML IV ONE (09:15)
[2022-11-22] MEDS ORDERED: SODIUM CHLORIDE 0.9% 2,000 ML IV ONE (09:15)
[2022-11-22] MEDS ORDERED: VANCOMYCIN 1GM/250ML 250 ML IV ONE ×2 (09:15→14:00)
[2022-11-22 09:33] LABS: Eosinophils # (auto) 0.1 10 ^3/uL (0-0.8); Hemoglobin 7.5 g/dL (13.5-17.5); Monocytes # (auto) 0.7 10 ^3/uL (0-1.3)
[2022-11-22 09:35] LABS: Basophils # (auto) 0 10 ^3/uL (0-0.2); Basophils % (auto) 0.2 % (0.0-2.0); Hematocrit 22.4 % (41.0-53.0); Lymphocytes # (auto) 1.2 10 ^3/uL (0.4-5.4); Lymphocytes % (auto) 10.3 % (10.0-50.0); Mean Corpuscular Hemoglobin 32.4 pg (28.0-32.0); Mean Corpuscular Hgb Conc. 33.4 g/dL (32.0-36.0); Mean Corpuscular Volume 96.9 fL (80.0-100.0); Monocytes % (auto) 6.2 % (0.0-12.0); Neutrophils # (auto) 9.4 10 ^3/uL (1.6-8.6); Neutrophils % (auto) 82.3 % (37.0-80.0); Nucleated Red Blood Cells % 0.1 %; Red Blood Cells 2.31 10^6/uL (4.5-5.90); Red Cell Distribution Width 15.5 % (11.8-14.3); White Blood Cell 11.5 10^3/uL (4.4-10.8)
[2022-11-22 09:50] LABS: Albumin 2.3 g/dL (3.4-5.0); Calcium 7.2 mg/dL (8.5-10.1); Potassium 3.8 mmol/L (3.5-5.1)
[2022-11-22 09:54] LABS: BUN/Creatinine Ratio 14.5; Bilirubin, Total 0.7 mg/dL (0.2-1.0); Total Protein 4.7 g/dL (6.4-8.2)
[2022-11-22] MEDS ORDERED: DEXTROSE (50%) 50ML SYRG IV PRN (13:00)
[2022-11-22] MEDS ORDERED: NITROGLYCERIN 0.4 MG SL TAB SL PRN (13:00)
[2022-11-22] MEDS ORDERED: MORPHINE SULFATE INJ 2 MG/ml SYRG IV PRN (13:00)
[2022-11-22] MEDS ORDERED: VANCOMYCIN PER PHARMACY 0 MG IV SCH (13:00)
[2022-11-22] MEDS: SODIUM CHLORIDE 0.9% 1,000 ML IV SCH ×2 (13:43→23:15)
[2022-11-22] MEDS ORDERED: ALBUTEROL MEDNEB 2.5 mg/3ml NEB NEB PRN (13:45)
[2022-11-22] MEDS ORDERED: GABAPENTIN 300 MG CAP PO PRN (14:00)
[2022-11-22 14:25] VITALS: BP 113/50
[2022-11-22 14:48] LABS: Cholesterol 80 mg/dL (< 200)
[2022-11-22 14:49] LABS: % Iron Saturation 10.5 % (20-55)
[2022-11-22 14:51] LABS: HDL Cholesterol 36 mg/dL (40-59); LDL Cholesterol 27 mg/dL (< 100); Triglycerides 170 mg/dL (< 150)
[2022-11-22 15:03] LABS: Ferritin 152.6 ng/mL (10-322)
[2022-11-22] MEDS: MESALAMINE 400mg Delayed Release Cap PO SCH (15:10)
[2022-11-22 15:34] LABS: INR 0.92 (0.9-1.15); Partial Thromboplastin Time 30.7 sec (24.6-33.4)
[2022-11-22] MEDS: InsuLIN REG 1unit/0.01ml Soln (100units/ml) SC SCH ×2 (17:00→22:00)
[2022-11-22 17:07] VITALS: BP 115/51
[2022-11-22] MEDS: ACCU-CHEK COMFORT CURVE STRIP VI SCH ×2 (17:13→22:22)
[2022-11-22] MEDS: TAMSULOSIN HYDROCHLORIDE 0.4 MG CAP PO SCH (17:14)
[2022-11-22 17:22] VITALS: BP 120/52
[2022-11-22] MEDS: PIPERACILLIN-TAZOB 2.25GM 50 ML IV SCH (19:06)
[2022-11-22 19:20] VITALS: BP 121/52
[2022-11-22] MEDS: MAGNESIUM OXIDE 400 MG TAB PO SCH (22:24)
[2022-11-22] MEDS: MONTELUKAST SODIUM 10 MG TAB PO SCH (22:25)
[2022-11-22] MEDS: POTASSIUM CHL 10 Meq TABLET PO SCH (22:25)
[2022-11-22] MEDS: FERROUS SULFATE 325mg EC TAB PO SCH (22:25)
[2022-11-23] MEDS: PIPERACILLIN-TAZOB 2.25GM 50 ML IV SCH ×3 (01:14→11:25)
[2022-11-23] MEDS: MESALAMINE 400mg Delayed Release Cap PO SCH ×2 (02:00→14:01)
[2022-11-23 06:17] LABS: Eosinophils # (auto) 0.1 10 ^3/uL (0-0.8); Eosinophils % (auto) 1.2 % (0.0-7.0); Lymphocytes # (auto) 0.5 10 ^3/uL (0.4-5.4); Monocytes # (auto) 0.6 10 ^3/uL (0-1.3); Neutrophils # (auto) 10.1 10 ^3/uL (1.6-8.6); Red Cell Distribution Width 15.1 % (11.8-14.3); White Blood Cell 11.4 10^3/uL (4.4-10.8)
[2022-11-23 06:19] LABS: Basophils # (auto) 0 10 ^3/uL (0-0.2); Basophils % (auto) 0.4 % (0.0-2.0); Hematocrit 25.4 % (41.0-53.0); Hemoglobin 8.3 g/dL (13.5-17.5); Lymphocytes % (auto) 4.5 % (10.0-50.0); Mean Corpuscular Hemoglobin 31.2 pg (28.0-32.0); Mean Corpuscular Hgb Conc. 32.9 g/dL (32.0-36.0); Mean Corpuscular Volume 95.1 fL (80.0-100.0); Monocytes % (auto) 5.2 % (0.0-12.0); Neutrophils % (auto) 88.7 % (37.0-80.0); Red Blood Cells 2.67 10^6/uL (4.5-5.90)
[2022-11-23] MEDS: InsuLIN REG 1unit/0.01ml Soln (100units/ml) SC SCH ×4 (06:21→22:00)
[2022-11-23] MEDS: ACCU-CHEK COMFORT CURVE STRIP VI SCH ×4 (06:21→22:09)
[2022-11-23 06:31] LABS: Albumin 2.1 g/dL (3.4-5.0); Calcium 7.3 mg/dL (8.5-10.1); Potassium 3.9 mmol/L (3.5-5.1)
[2022-11-23 06:34] LABS: BUN/Creatinine Ratio 13.4; Bilirubin, Total 0.6 mg/dL (0.2-1.0); Total Protein 4.9 g/dL (6.4-8.2)
[2022-11-23] MEDS: FOLIC ACID 800 MCG PO SCH (06:52)
[2022-11-23 07:06] LABS: Urine Bacteria FEW /hpf (None Seen); Urine Blood Negative /uL (Negative); Urine Specific Gravity 1.009 (1.001-1.035); Urine WBC 2 /hpf (0 - 3)
[2022-11-23] MEDS: POTASSIUM CHL 10 Meq TABLET PO SCH (09:18)
[2022-11-23] MEDS: FERROUS SULFATE 325mg EC TAB PO SCH ×2 (09:18→22:04)
[2022-11-23] MEDS: SODIUM CHLORIDE 0.9% 1,000 ML IV SCH ×2 (09:19→18:19)
[2022-11-23] MEDS: MAGNESIUM OXIDE 400 MG TAB PO SCH (09:19)
[2022-11-23 09:59] LABS: Folate (Folic Acid) > 24.00 ng/mL (5.38-24)
[2022-11-23] MEDS ORDERED: FUROSEMIDE 40 MG TAB PO SCH (10:00)
[2022-11-23] MEDS ORDERED: PANTOPRAZOLE 40 MG/10 ML VIAL INJ IV SCH (10:00)
[2022-11-23 13:00] VITALS: BP 144/63
[2022-11-23 16:26] VITALS: BP 133/74
[2022-11-23] MEDS: TAMSULOSIN HYDROCHLORIDE 0.4 MG CAP PO SCH (18:00)
[2022-11-23 21:43] VITALS: BP 128/54
[2022-11-23] MEDS: MONTELUKAST SODIUM 10 MG TAB PO SCH (22:04)
[2022-11-24] MEDS: MESALAMINE 400mg Delayed Release Cap PO SCH ×2 (02:22→14:54)
[2022-11-24 04:35] VITALS: BP 146/63
[2022-11-24 05:30] LABS: Basophils # (auto) 0.1 10 ^3/uL (0-0.2); Basophils % (auto) 0.7 % (0.0-2.0); Eosinophils # (auto) 0.2 10 ^3/uL (0-0.8); Eosinophils % (auto) 1.6 % (0.0-7.0); Hematocrit 26.5 % (41.0-53.0); Hemoglobin 8.9 g/dL (13.5-17.5); Lymphocytes # (auto) 0.8 10 ^3/uL (0.4-5.4); Lymphocytes % (auto) 6.3 % (10.0-50.0); Mean Corpuscular Hemoglobin 31.7 pg (28.0-32.0); Mean Corpuscular Hgb Conc. 33.5 g/dL (32.0-36.0); Mean Corpuscular Volume 94.4 fL (80.0-100.0); Monocytes # (auto) 0.8 10 ^3/uL (0-1.3); Monocytes % (auto) 6.4 % (0.0-12.0); Neutrophils # (auto) 10.7 10 ^3/uL (1.6-8.6); Red Blood Cells 2.81 10^6/uL (4.5-5.90); Red Cell Distribution Width 15.4 % (11.8-14.3); White Blood Cell 12.6 10^3/uL (4.4-10.8)
[2022-11-24 05:40] LABS: Calcium 7.3 mg/dL (8.5-10.1); Potassium 4.2 mmol/L (3.5-5.1)
[2022-11-24 05:44] LABS: BUN/Creatinine Ratio 11.6; Bilirubin, Total 0.5 mg/dL (0.2-1.0); Total Protein 4.2 g/dL (6.4-8.2)
[2022-11-24] MEDS: InsuLIN REG 1unit/0.01ml Soln (100units/ml) SC SCH ×4 (06:26→22:08)
[2022-11-24] MEDS: ACCU-CHEK COMFORT CURVE STRIP VI SCH ×4 (06:26→22:00)
[2022-11-24] MEDS: FOLIC ACID 800 MCG PO SCH (06:38)
[2022-11-24 08:21] VITALS: BP 149/66
[2022-11-24] MEDS: SODIUM CHLORIDE 0.9% 1,000 ML IV SCH ×2 (08:56→18:43)
[2022-11-24] MEDS: PANTOPRAZOLE 40 MG TAB PO SCH (08:57)
[2022-11-24] MEDS: FERROUS SULFATE 325mg EC TAB PO SCH ×2 (08:57→21:49)
[2022-11-24 11:03] LABS: Protein, Urine 29.6 mg/dL (0.0-11.9)
[2022-11-24] MEDS ORDERED: CARVEDILOL 3.125 MG TAB PO ONE (12:30)
[2022-11-24 13:00] VITALS: BP 149/63
[2022-11-24 17:49] VITALS: BP 139/69
[2022-11-24] MEDS: TAMSULOSIN HYDROCHLORIDE 0.4 MG CAP PO SCH (18:24)
[2022-11-24] MEDS: CARVEDILOL 3.125 MG TAB PO SCH (21:50)
[2022-11-24 22:00] VITALS: BP 140/62
[2022-11-24] MEDS: MONTELUKAST SODIUM 10 MG TAB PO SCH (22:06)
[2022-11-25] MEDS: SODIUM CHLORIDE 0.9% 1,000 ML IV SCH ×2 (01:50→15:19)
[2022-11-25] MEDS: MESALAMINE 400mg Delayed Release Cap PO SCH ×2 (02:00→14:58)
[2022-11-25 05:00] VITALS: BP 156/71
[2022-11-25] MEDS: InsuLIN REG 1unit/0.01ml Soln (100units/ml) SC SCH ×4 (06:06→22:00)
[2022-11-25] MEDS: FOLIC ACID 800 MCG PO SCH (06:08)
[2022-11-25] MEDS: ACCU-CHEK COMFORT CURVE STRIP VI SCH ×4 (06:31→22:00)
[2022-11-25 08:23] VITALS: BP 156/71
[2022-11-25] MEDS: FERROUS SULFATE 325mg EC TAB PO SCH ×2 (08:51→22:00)
[2022-11-25] MEDS: PANTOPRAZOLE 40 MG TAB PO SCH (08:51)
[2022-11-25] MEDS: CARVEDILOL 3.125 MG TAB PO SCH ×2 (08:51→22:00)
[2022-11-25] MEDS: CLOPIDOGREL BISULFATE 75 MG TAB PO SCH (08:51)
[2022-11-25 09:00] VITALS: BP 155/67
[2022-11-25 09:57] LABS: Basophils # (auto) 0.1 10 ^3/uL (0-0.2); Eosinophils # (auto) 0.2 10 ^3/uL (0-0.8); Eosinophils % (auto) 1.2 % (0.0-7.0); Hematocrit 28.4 % (41.0-53.0); Neutrophils % (auto) 83.1 % (37.0-80.0)
[2022-11-25 09:58] LABS: Basophils % (auto) 0.8 % (0.0-2.0); Hemoglobin 9.5 g/dL (13.5-17.5); Lymphocytes # (auto) 0.8 10 ^3/uL (0.4-5.4); Lymphocytes % (auto) 6.8 % (10.0-50.0); Mean Corpuscular Hemoglobin 32.2 pg (28.0-32.0); Mean Corpuscular Hgb Conc. 33.4 g/dL (32.0-36.0); Mean Corpuscular Volume 96.2 fL (80.0-100.0); Monocytes % (auto) 8.1 % (0.0-12.0); Neutrophils # (auto) 10.3 10 ^3/uL (1.6-8.6); Nucleated Red Blood Cells % 0.1 %; Red Blood Cells 2.95 10^6/uL (4.5-5.90); Red Cell Distribution Width 15.9 % (11.8-14.3); White Blood Cell 12.4 10^3/uL (4.4-10.8)
[2022-11-25 10:13] LABS: Calcium 8.1 mg/dL (8.5-10.1); Potassium 4.1 mmol/L (3.5-5.1)
[2022-11-25 10:16] LABS: BUN/Creatinine Ratio 11.7
[2022-11-25 13:00] VITALS: BP 139/69
[2022-11-25] MEDS ORDERED: MORPHINE SULFATE INJ 2 MG/ml SYRG IV PRN (13:45)
[2022-11-25] MEDS ORDERED: traMADol HCL 50 MG TAB PO PRN ×2 (13:45→14:00)
[2022-11-25 16:34] VITALS: BP 130/65
[2022-11-25] MEDS: TAMSULOSIN HYDROCHLORIDE 0.4 MG CAP PO SCH (17:17)
[2022-11-25] MEDS: SODIUM BICARBONATE 50ML VIAL 50 ML in SOD CHL 0.45% 1,000 ML IV SCH (17:17)
[2022-11-25 22:00] VITALS: BP 142/62
[2022-11-25] MEDS: MONTELUKAST SODIUM 10 MG TAB PO SCH (22:00)
[2022-11-26] MEDS: MESALAMINE 400mg Delayed Release Cap PO SCH ×2 (02:00→13:56)
[2022-11-26] MEDS: SODIUM BICARBONATE 50ML VIAL 50 ML in SOD CHL 0.45% 1,000 ML IV SCH ×2 (03:00→13:59)
[2022-11-26 05:00] VITALS: BP 150/59
[2022-11-26 05:32] LABS: Basophils # (auto) 0.1 10 ^3/uL (0-0.2); Basophils % (auto) 0.8 % (0.0-2.0); Eosinophils # (auto) 0.1 10 ^3/uL (0-0.8); Eosinophils % (auto) 1.2 % (0.0-7.0); Hematocrit 25.3 % (41.0-53.0); Hemoglobin 8.4 g/dL (13.5-17.5); Lymphocytes # (auto) 0.9 10 ^3/uL (0.4-5.4); Mean Corpuscular Hemoglobin 31.1 pg (28.0-32.0); Mean Corpuscular Hgb Conc. 33.3 g/dL (32.0-36.0); Mean Corpuscular Volume 93.5 fL (80.0-100.0); Monocytes % (auto) 10.5 % (0.0-12.0); Neutrophils # (auto) 7.6 10 ^3/uL (1.6-8.6); Neutrophils % (auto) 78.5 % (37.0-80.0); Red Blood Cells 2.71 10^6/uL (4.5-5.90); Red Cell Distribution Width 15.2 % (11.8-14.3); White Blood Cell 9.7 10^3/uL (4.4-10.8)
[2022-11-26 05:39] LABS: BUN/Creatinine Ratio 14.5; Calcium 7.3 mg/dL (8.5-10.1); Potassium 4.1 mmol/L (3.5-5.1)
[2022-11-26] MEDS: InsuLIN REG 1unit/0.01ml Soln (100units/ml) SC SCH ×4 (06:06→22:52)
[2022-11-26] MEDS: ACCU-CHEK COMFORT CURVE STRIP VI SCH ×4 (06:07→22:52)
[2022-11-26] MEDS: FOLIC ACID 800 MCG PO SCH (06:08)
[2022-11-26 08:00] VITALS: BP 145/69
[2022-11-26 09:00] VITALS: BP 145/69
[2022-11-26] MEDS: CLOPIDOGREL BISULFATE 75 MG TAB PO SCH (09:53)
[2022-11-26] MEDS: PANTOPRAZOLE 40 MG TAB PO SCH (09:54)
[2022-11-26] MEDS: FERROUS SULFATE 325mg EC TAB PO SCH ×2 (09:54→22:49)
[2022-11-26] MEDS: CARVEDILOL 3.125 MG TAB PO SCH ×2 (09:54→22:50)
[2022-11-26] MEDS ORDERED: FOLIC ACID 1 MG TAB PO ONE (12:45)
[2022-11-26 13:00] VITALS: BP 145/66
[2022-11-26] MEDS: HYDROcodone-ACET 10/325MG TAB PO PRN ×2 (14:23→20:49)
[2022-11-26 17:00] VITALS: BP 141/59
[2022-11-26] MEDS: TAMSULOSIN HYDROCHLORIDE 0.4 MG CAP PO SCH (18:42)
[2022-11-26 22:00] VITALS: BP 134/63
[2022-11-26] MEDS: MONTELUKAST SODIUM 10 MG TAB PO SCH (22:48)
[2022-11-27] MEDS: SODIUM BICARBONATE 50ML VIAL 50 ML in SOD CHL 0.45% 1,000 ML IV SCH ×2 (00:37→11:09)
[2022-11-27] MEDS: MESALAMINE 400mg Delayed Release Cap PO SCH ×2 (01:34→14:15)
[2022-11-27 05:00] VITALS: BP 136/57
[2022-11-27 05:50] LABS: Basophils # (auto) 0.1 10 ^3/uL (0-0.2); Eosinophils # (auto) 0.2 10 ^3/uL (0-0.8); Mean Corpuscular Hgb Conc. 33.5 g/dL (32.0-36.0); Monocytes # (auto) 1.1 10 ^3/uL (0-1.3); Neutrophils # (auto) 7.7 10 ^3/uL (1.6-8.6)
[2022-11-27 05:55] LABS: Basophils % (auto) 0.6 % (0.0-2.0); Eosinophils % (auto) 1.6 % (0.0-7.0); Hematocrit 23.9 % (41.0-53.0); Lymphocytes % (auto) 10.2 % (10.0-50.0); Mean Corpuscular Hemoglobin 31.3 pg (28.0-32.0); Mean Corpuscular Volume 93.5 fL (80.0-100.0); Monocytes % (auto) 11.1 % (0.0-12.0); Neutrophils % (auto) 76.5 % (37.0-80.0); Red Blood Cells 2.55 10^6/uL (4.5-5.90); Red Cell Distribution Width 15.6 % (11.8-14.3); White Blood Cell 10.1 10^3/uL (4.4-10.8)
[2022-11-27 06:00] LABS: BUN/Creatinine Ratio 13.9; Calcium 7.7 mg/dL (8.5-10.1); Potassium 4.1 mmol/L (3.5-5.1)
[2022-11-27] MEDS: InsuLIN REG 1unit/0.01ml Soln (100units/ml) SC SCH ×4 (06:03→21:50)
[2022-11-27] MEDS: ACCU-CHEK COMFORT CURVE STRIP VI SCH ×4 (06:04→21:49)
[2022-11-27] MEDS: HYDROcodone-ACET 10/325MG TAB PO PRN ×3 (06:22→20:38)
[2022-11-27 07:30] VITALS: BP 135/59
[2022-11-27 08:00] VITALS: BP 135/59
[2022-11-27] MEDS: PANTOPRAZOLE 40 MG TAB PO SCH (10:43)
[2022-11-27] MEDS: CLOPIDOGREL BISULFATE 75 MG TAB PO SCH (10:43)
[2022-11-27] MEDS: FOLIC ACID 1 MG TAB PO SCH (10:43)
[2022-11-27] MEDS: FERROUS SULFATE 325mg EC TAB PO SCH ×2 (10:43→21:48)
[2022-11-27] MEDS: CARVEDILOL 3.125 MG TAB PO SCH ×2 (10:45→21:48)
[2022-11-27 12:00] VITALS: BP 129/45
[2022-11-27] MEDS ORDERED: ENOXAPARIN SOD 30 MG/0.3 ML SYRINGE SC ONE (14:30)
[2022-11-27] MEDS: LINEZOLID 600MG/300ML 300 ML IV SCH ×2 (14:49→21:49)
[2022-11-27 16:00] VITALS: BP 128/50
[2022-11-27] MEDS: TAMSULOSIN HYDROCHLORIDE 0.4 MG CAP PO SCH (17:33)
[2022-11-27] MEDS: MONTELUKAST SODIUM 10 MG TAB PO SCH (21:47)
[2022-11-27 22:00] VITALS: BP 142/60
[2022-11-28] VITALS (7 sets, daily range): BP systolic 114–145; BP diastolic 56–76
[2022-11-28] MEDS: MESALAMINE 400mg Delayed Release Cap PO SCH ×2 (02:42→13:23)
[2022-11-28] MEDS: HYDROcodone-ACET 10/325MG TAB PO PRN ×5 (02:58→21:46)
[2022-11-28] MEDS: ACCU-CHEK COMFORT CURVE STRIP VI SCH ×4 (06:27→21:45)
[2022-11-28] MEDS: InsuLIN REG 1unit/0.01ml Soln (100units/ml) SC SCH ×4 (06:27→21:45)
[2022-11-28] MEDS: LINEZOLID 600MG/300ML 300 ML IV SCH ×2 (09:37→23:09)
[2022-11-28] MEDS: CLOPIDOGREL BISULFATE 75 MG TAB PO SCH (09:39)
[2022-11-28] MEDS: FERROUS SULFATE 325mg EC TAB PO SCH ×2 (09:39→21:39)
[2022-11-28] MEDS: ENOXAPARIN SOD 30 MG/0.3 ML SYRINGE SC SCH (09:40)
[2022-11-28] MEDS: FOLIC ACID 1 MG TAB PO SCH (09:40)
[2022-11-28] MEDS: CARVEDILOL 3.125 MG TAB PO SCH ×2 (09:40→21:39)
[2022-11-28] MEDS: PANTOPRAZOLE 40 MG TAB PO SCH (09:40)
[2022-11-28] MEDS: MEROPENEM 500MG IVPB 50 ML IV SCH ×2 (11:36→21:39)
[2022-11-28 12:35] LABS: Urine Bacteria FEW /hpf (None Seen); Urine Blood Negative /uL (Negative); Urine Hyaline Cast FEW /lpf (0 - 2); Urine Mucus FEW (None Seen); Urine Specific Gravity 1.005 (1.001-1.035); Urine WBC 1 /hpf (0 - 3)
[2022-11-28 12:45] LABS: Protein, Urine 27.7 mg/dL (0.0-11.9)
[2022-11-28 16:34] LABS: Basophils # (auto) 0.1 10 ^3/uL (0-0.2); Eosinophils # (auto) 0.2 10 ^3/uL (0-0.8); Nucleated Red Blood Cells % 0.1 %; White Blood Cell 12.9 10^3/uL (4.4-10.8)
[2022-11-28 16:35] LABS: Basophils % (auto) 0.4 % (0.0-2.0); Eosinophils % (auto) 1.7 % (0.0-7.0); Hematocrit 28.5 % (41.0-53.0); Lymphocytes % (auto) 7.8 % (10.0-50.0); Mean Corpuscular Hemoglobin 30.5 pg (28.0-32.0); Mean Corpuscular Hgb Conc. 31.8 g/dL (32.0-36.0); Monocytes % (auto) 7.6 % (0.0-12.0); Neutrophils # (auto) 10.7 10 ^3/uL (1.6-8.6); Neutrophils % (auto) 82.5 % (37.0-80.0); Red Blood Cells 2.96 10^6/uL (4.5-5.90); Red Cell Distribution Width 15.9 % (11.8-14.3)
[2022-11-28 16:50] LABS: BUN/Creatinine Ratio 13.2; Calcium 7.5 mg/dL (8.5-10.1); Potassium 4.4 mmol/L (3.5-5.1)
[2022-11-28] MEDS: TAMSULOSIN HYDROCHLORIDE 0.4 MG CAP PO SCH (17:31)
[2022-11-28] MEDS: MONTELUKAST SODIUM 10 MG TAB PO SCH (21:39)
[2022-11-29] MEDS ORDERED: GABAPENTIN 300 MG CAP PO PRN
[2022-11-29] MEDS: MESALAMINE 400mg Delayed Release Cap PO SCH ×2 (01:32→14:23)
[2022-11-29] MEDS: HYDROcodone-ACET 10/325MG TAB PO PRN ×4 (01:41→19:19)
[2022-11-29 04:24] VITALS: BP 127/58
[2022-11-29] MEDS: InsuLIN REG 1unit/0.01ml Soln (100units/ml) SC SCH ×4 (06:08→22:30)
[2022-11-29] MEDS: ACCU-CHEK COMFORT CURVE STRIP VI SCH ×4 (06:08→22:18)
[2022-11-29 07:05] LABS: Basophils # (auto) 0.1 10 ^3/uL (0-0.2); Eosinophils # (auto) 0.2 10 ^3/uL (0-0.8)
[2022-11-29 07:07] LABS: Basophils % (auto) 0.7 % (0.0-2.0); Eosinophils % (auto) 1.7 % (0.0-7.0); Hematocrit 23.6 % (41.0-53.0); Hemoglobin 7.7 g/dL (13.5-17.5); Lymphocytes # (auto) 1.1 10 ^3/uL (0.4-5.4); Lymphocytes % (auto) 8.6 % (10.0-50.0); Mean Corpuscular Hemoglobin 31.2 pg (28.0-32.0); Mean Corpuscular Hgb Conc. 32.7 g/dL (32.0-36.0); Mean Corpuscular Volume 95.3 fL (80.0-100.0); Monocytes # (auto) 0.9 10 ^3/uL (0-1.3); Monocytes % (auto) 6.9 % (0.0-12.0); Neutrophils # (auto) 10.7 10 ^3/uL (1.6-8.6); Neutrophils % (auto) 82.1 % (37.0-80.0); Red Blood Cells 2.48 10^6/uL (4.5-5.90); Red Cell Distribution Width 15.4 % (11.8-14.3)
[2022-11-29 07:24] LABS: Potassium 4.3 mmol/L (3.5-5.1)
[2022-11-29 07:30] VITALS: BP 154/67
[2022-11-29 07:37] LABS: Albumin 1.9 g/dL (3.4-5.0); BUN/Creatinine Ratio 14.1; Bilirubin, Total 0.4 mg/dL (0.2-1.0); Calcium 7.5 mg/dL (8.5-10.1); Total Protein 5.1 g/dL (6.4-8.2)
[2022-11-29 09:00] VITALS: BP 154/67
[2022-11-29] MEDS: LINEZOLID 600MG/300ML 300 ML IV SCH (09:12)
[2022-11-29] MEDS: PANTOPRAZOLE 40 MG TAB PO SCH (09:15)
[2022-11-29] MEDS: ENOXAPARIN SOD 30 MG/0.3 ML SYRINGE SC SCH (09:15)
[2022-11-29] MEDS: FOLIC ACID 1 MG TAB PO SCH (09:16)
[2022-11-29] MEDS: FERROUS SULFATE 325mg EC TAB PO SCH ×2 (09:16→22:21)
[2022-11-29] MEDS: CARVEDILOL 3.125 MG TAB PO SCH ×2 (09:17→22:22)
[2022-11-29] MEDS: CLOPIDOGREL BISULFATE 75 MG TAB PO SCH (10:00)
[2022-11-29] MEDS: SODIUM CHLORIDE 0.9% 1,000 ML IV SCH (12:00)
[2022-11-29 12:51] VITALS: BP 128/65
[2022-11-29] MEDS: MEROPENEM 500MG IVPB 50 ML IV SCH (14:27)
[2022-11-29 17:00] VITALS: BP 135/76
[2022-11-29] MEDS ORDERED: DOCUSATE SOD 100 MG CAP PO ONE (17:00)
[2022-11-29] MEDS ORDERED: diphenhdrAMINE HCL 50 MG/1 ML VL IV PRN (17:00)
[2022-11-29] MEDS: TAMSULOSIN HYDROCHLORIDE 0.4 MG CAP PO SCH (18:00)
[2022-11-29] MEDS: CEFEPIME 2 GM in SODIUM CHL 0.9% 50 ML IV SCH (18:47)
[2022-11-29 19:44] LABS: Basophils # (auto) 0.1 10 ^3/uL (0-0.2); Basophils % (auto) 0.7 % (0.0-2.0); Eosinophils # (auto) 0.2 10 ^3/uL (0-0.8); Eosinophils % (auto) 1.6 % (0.0-7.0); Hematocrit 25.4 % (41.0-53.0); Hemoglobin 7.7 g/dL (13.5-17.5); Lymphocytes % (auto) 7.4 % (10.0-50.0); Mean Corpuscular Hemoglobin 30.3 pg (28.0-32.0); Mean Corpuscular Hgb Conc. 30.3 g/dL (32.0-36.0); Mean Corpuscular Volume 100.1 fL (80.0-100.0); Monocytes # (auto) 0.9 10 ^3/uL (0-1.3); Monocytes % (auto) 6.3 % (0.0-12.0); Neutrophils # (auto) 11.8 10 ^3/uL (1.6-8.6); Red Blood Cells 2.53 10^6/uL (4.5-5.90); Red Cell Distribution Width 16.6 % (11.8-14.3); White Blood Cell 14.1 10^3/uL (4.4-10.8)
[2022-11-29 20:09] LABS: BUN/Creatinine Ratio 14.4; Calcium 7.9 mg/dL (8.5-10.1); Potassium 4.3 mmol/L (3.5-5.1)
[2022-11-29 21:40] VITALS: BP 123/47
[2022-11-29] MEDS: MONTELUKAST SODIUM 10 MG TAB PO SCH (22:21)
[2022-11-29] MEDS: GABAPENTIN 300 MG CAP PO SCH (22:21)
[2022-11-29] MEDS: DOCUSATE SOD 100 MG CAP PO SCH (22:22)
[2022-11-29] MEDS: LACTULOSE 20Gm/30ML SOLN PO SCH (22:24)
[2022-11-30] MEDS: MESALAMINE 400mg Delayed Release Cap PO SCH ×2 (01:29→14:16)
[2022-11-30] MEDS: HYDROcodone-ACET 10/325MG TAB PO PRN ×5 (01:33→22:37)
[2022-11-30 04:57] VITALS: BP 135/58
[2022-11-30] MEDS: SODIUM CHLORIDE 0.9% 1,000 ML IV SCH (06:00)
[2022-11-30] MEDS: InsuLIN REG 1unit/0.01ml Soln (100units/ml) SC SCH ×4 (06:24→22:46)
[2022-11-30] MEDS: ACCU-CHEK COMFORT CURVE STRIP VI SCH ×4 (06:24→22:45)
[2022-11-30 07:30] VITALS: BP 153/2
[2022-11-30] MEDS: CLOPIDOGREL BISULFATE 75 MG TAB PO SCH (07:41)
[2022-11-30 09:00] VITALS: BP 153/62
[2022-11-30] MEDS: CEFEPIME 2 GM in SODIUM CHL 0.9% 50 ML IV SCH (09:44)
[2022-11-30] MEDS: FERROUS SULFATE 325mg EC TAB PO SCH ×2 (09:44→22:38)
[2022-11-30] MEDS: LACTULOSE 20Gm/30ML SOLN PO SCH ×2 (09:44→22:00)
[2022-11-30] MEDS: ENOXAPARIN SOD 30 MG/0.3 ML SYRINGE SC SCH (09:44)
[2022-11-30] MEDS: GABAPENTIN 300 MG CAP PO SCH ×2 (09:44→22:36)
[2022-11-30] MEDS: DOCUSATE SOD 100 MG CAP PO SCH ×2 (09:44→22:38)
[2022-11-30] MEDS: PANTOPRAZOLE 40 MG TAB PO SCH (09:44)
[2022-11-30] MEDS: FOLIC ACID 1 MG TAB PO SCH (09:45)
[2022-11-30] MEDS: CARVEDILOL 3.125 MG TAB PO SCH ×2 (09:45→22:38)
[2022-11-30 12:43] VITALS: BP 143/61
[2022-11-30 16:20] LABS: BUN/Creatinine Ratio 13.9; Calcium 7.8 mg/dL (8.5-10.1)
[2022-11-30 16:56] VITALS: BP 135/58
[2022-11-30] MEDS: TAMSULOSIN HYDROCHLORIDE 0.4 MG CAP PO SCH (18:04)
[2022-11-30] MEDS: MONTELUKAST SODIUM 10 MG TAB PO SCH (22:38)
[2022-11-30 23:38] VITALS: BP 140/55
[2022-12-01] MEDS: HYDROcodone-ACET 10/325MG TAB PO PRN ×4 (02:59→22:02)
[2022-12-01] MEDS: MESALAMINE 400mg Delayed Release Cap PO SCH ×2 (02:59→14:20)
[2022-12-01] MEDS: SODIUM CHLORIDE 0.9% 1,000 ML IV SCH ×3 (03:13→23:45)
[2022-12-01 04:50] VITALS: BP 123/45
[2022-12-01 05:35] LABS: BUN/Creatinine Ratio 13.7; Basophils # (auto) 0.1 10 ^3/uL (0-0.2); Basophils % (auto) 0.6 % (0.0-2.0); Calcium 7.9 mg/dL (8.5-10.1); Eosinophils # (auto) 0.2 10 ^3/uL (0-0.8); Eosinophils % (auto) 1.5 % (0.0-7.0); Hematocrit 23.9 % (41.0-53.0); Hemoglobin 7.6 g/dL (13.5-17.5); Lymphocytes # (auto) 0.8 10 ^3/uL (0.4-5.4); Lymphocytes % (auto) 6.2 % (10.0-50.0); Mean Corpuscular Hemoglobin 30.3 pg (28.0-32.0); Mean Corpuscular Hgb Conc. 31.8 g/dL (32.0-36.0); Mean Corpuscular Volume 95.2 fL (80.0-100.0); Monocytes # (auto) 0.7 10 ^3/uL (0-1.3); Monocytes % (auto) 5.2 % (0.0-12.0); Neutrophils # (auto) 11.1 10 ^3/uL (1.6-8.6); Neutrophils % (auto) 86.5 % (37.0-80.0); Potassium 4.1 mmol/L (3.5-5.1); Red Blood Cells 2.51 10^6/uL (4.5-5.90); White Blood Cell 12.8 10^3/uL (4.4-10.8)
[2022-12-01] MEDS: InsuLIN REG 1unit/0.01ml Soln (100units/ml) SC SCH ×4 (06:23→22:04)
[2022-12-01] MEDS: ACCU-CHEK COMFORT CURVE STRIP VI SCH ×4 (06:23→22:01)
[2022-12-01] MEDS: CLOPIDOGREL BISULFATE 75 MG TAB PO SCH (07:47)
[2022-12-01] MEDS: ENOXAPARIN SOD 30 MG/0.3 ML SYRINGE SC SCH ×2 (07:47→11:23)
[2022-12-01 09:00] VITALS: BP 141/61
[2022-12-01 09:00] LABS: INR 0.97 (0.9-1.15); Partial Thromboplastin Time 33.1 sec (24.6-33.4)
[2022-12-01] MEDS: LACTULOSE 20Gm/30ML SOLN PO SCH (10:00)
[2022-12-01] MEDS: GABAPENTIN 300 MG CAP PO SCH (11:20)
[2022-12-01] MEDS: FOLIC ACID 1 MG TAB PO SCH (11:20)
[2022-12-01] MEDS: CEFEPIME 2 GM in SODIUM CHL 0.9% 50 ML IV SCH (11:20)
[2022-12-01] MEDS: FERROUS SULFATE 325mg EC TAB PO SCH ×2 (11:21→22:00)
[2022-12-01] MEDS: DOCUSATE SOD 100 MG CAP PO SCH (11:21)
[2022-12-01] MEDS: PANTOPRAZOLE 40 MG TAB PO SCH (11:21)
[2022-12-01] MEDS: CARVEDILOL 3.125 MG TAB PO SCH ×2 (11:22→22:01)
[2022-12-01] MEDS ORDERED: SODIUM CHLORIDE 0.9% 1,000 ML IV SCH (12:30)
[2022-12-01] MEDS ORDERED: FUROSEMIDE 40 MG/4 ML VIAL IV ONE (12:30)
[2022-12-01 12:48] VITALS: BP 140/56
[2022-12-01 15:17] LABS: Urine Bacteria FEW /hpf (None Seen); Urine Blood Negative /uL (Negative); Urine Mucus FEW (None Seen); Urine Specific Gravity 1.009 (1.001-1.035); Urine Sperm PRESENT /hpf (None Seen); Urine WBC 3 /hpf (0 - 3)
[2022-12-01 17:16] VITALS: BP 143/67
[2022-12-01] MEDS: TAMSULOSIN HYDROCHLORIDE 0.4 MG CAP PO SCH (17:25)
[2022-12-01 21:50] VITALS: BP 131/48
[2022-12-01] MEDS: MONTELUKAST SODIUM 10 MG TAB PO SCH (22:01)
[2022-12-02] VITALS (7 sets, daily range): BP systolic 132–145; BP diastolic 54–63
[2022-12-02] MEDS: MESALAMINE 400mg Delayed Release Cap PO SCH ×2 (03:08→15:44)
[2022-12-02] MEDS: HYDROcodone-ACET 10/325MG TAB PO PRN ×2 (03:13→10:57)
[2022-12-02 06:24] LABS: Basophils # (auto) 0.1 10 ^3/uL (0-0.2); Eosinophils # (auto) 0.2 10 ^3/uL (0-0.8); Mean Corpuscular Volume 95.6 fL (80.0-100.0)
[2022-12-02 06:27] LABS: Basophils % (auto) 0.7 % (0.0-2.0); Hematocrit 21.3 % (41.0-53.0); Mean Corpuscular Hemoglobin 31.3 pg (28.0-32.0); Mean Corpuscular Hgb Conc. 32.7 g/dL (32.0-36.0); Monocytes # (auto) 0.8 10 ^3/uL (0-1.3); Neutrophils # (auto) 7.8 10 ^3/uL (1.6-8.6); Neutrophils % (auto) 79.3 % (37.0-80.0); Red Blood Cells 2.23 10^6/uL (4.5-5.90); Red Cell Distribution Width 15.6 % (11.8-14.3); White Blood Cell 9.9 10^3/uL (4.4-10.8)
[2022-12-02] MEDS: ACCU-CHEK COMFORT CURVE STRIP VI SCH ×4 (06:34→21:31)
[2022-12-02] MEDS: InsuLIN REG 1unit/0.01ml Soln (100units/ml) SC SCH ×4 (06:34→21:29)
[2022-12-02 06:41] LABS: BUN/Creatinine Ratio 13.9; Calcium 7.6 mg/dL (8.5-10.1); Potassium 4.3 mmol/L (3.5-5.1)
[2022-12-02] MEDS: CEFEPIME 2 GM in SODIUM CHL 0.9% 50 ML IV SCH (10:00)
[2022-12-02] MEDS: CARVEDILOL 3.125 MG TAB PO SCH ×2 (10:58→21:30)
[2022-12-02] MEDS: FERROUS SULFATE 325mg EC TAB PO SCH ×2 (10:59→21:29)
[2022-12-02] MEDS: FOLIC ACID 1 MG TAB PO SCH (10:59)
[2022-12-02] MEDS: ENOXAPARIN SOD 30 MG/0.3 ML SYRINGE SC SCH (11:00)
[2022-12-02] MEDS: CLOPIDOGREL BISULFATE 75 MG TAB PO SCH (11:01)
[2022-12-02] MEDS: PANTOPRAZOLE 40 MG TAB PO SCH (11:05)
[2022-12-02] MEDS: SODIUM CHLORIDE 0.9% 1,000 ML IV SCH ×2 (15:52→16:52)
[2022-12-02] MEDS ORDERED: FUROSEMIDE 40 MG/4 ML VIAL IV ONE (16:00)
[2022-12-02] MEDS: EPOETIN ALFA-EPBX 10,000 UNIT/1ML VIAL SC SCH (17:23)
[2022-12-02] MEDS: TAMSULOSIN HYDROCHLORIDE 0.4 MG CAP PO SCH (19:00)
[2022-12-02] MEDS: MONTELUKAST SODIUM 10 MG TAB PO SCH (21:30)
[2022-12-03 01:50] VITALS: BP 146/62
[2022-12-03] MEDS: MESALAMINE 400mg Delayed Release Cap PO SCH ×2 (02:27→14:53)
[2022-12-03] MEDS: ACCU-CHEK COMFORT CURVE STRIP VI SCH ×4 (06:06→21:29)
[2022-12-03] MEDS: InsuLIN REG 1unit/0.01ml Soln (100units/ml) SC SCH ×4 (06:06→21:23)
[2022-12-03 09:00] VITALS: BP 152/66
[2022-12-03] MEDS: CEFEPIME 2 GM in SODIUM CHL 0.9% 50 ML IV SCH (10:44)
[2022-12-03] MEDS: CLOPIDOGREL BISULFATE 75 MG TAB PO SCH (10:45)
[2022-12-03] MEDS: PANTOPRAZOLE 40 MG TAB PO SCH (10:45)
[2022-12-03] MEDS: FERROUS SULFATE 325mg EC TAB PO SCH ×2 (10:46→21:27)
[2022-12-03] MEDS: CARVEDILOL 3.125 MG TAB PO SCH ×2 (10:46→21:28)
[2022-12-03] MEDS: FOLIC ACID 1 MG TAB PO SCH (10:46)
[2022-12-03] MEDS: ENOXAPARIN SOD 30 MG/0.3 ML SYRINGE SC SCH (10:46)
[2022-12-03] MEDS ORDERED: IRON SUCROSE COMPLEX 200 MG in SODIUM CHL 0.9% 100 ML IV SCH (12:00)
[2022-12-03] MEDS: SODIUM FERR GLUC 62.5MG/5ML 125 MG in SODIUM CHL 0.9% 100 ML IV SCH ×2 (12:00→19:06)
[2022-12-03 12:11] LABS: Basophils # (auto) 0.1 10 ^3/uL (0-0.2); Basophils % (auto) 1.2 % (0.0-2.0); Eosinophils # (auto) 0.1 10 ^3/uL (0-0.8); Eosinophils % (auto) 1.2 % (0.0-7.0); Hematocrit 27.7 % (41.0-53.0); Hemoglobin 9.4 g/dL (13.5-17.5); Lymphocytes # (auto) 0.9 10 ^3/uL (0.4-5.4); Lymphocytes % (auto) 8.2 % (10.0-50.0); Mean Corpuscular Hemoglobin 31.4 pg (28.0-32.0); Mean Corpuscular Hgb Conc. 33.9 g/dL (32.0-36.0); Mean Corpuscular Volume 92.7 fL (80.0-100.0); Monocytes # (auto) 0.7 10 ^3/uL (0-1.3); Monocytes % (auto) 6.7 % (0.0-12.0); Neutrophils # (auto) 9.1 10 ^3/uL (1.6-8.6); Neutrophils % (auto) 82.7 % (37.0-80.0); Red Blood Cells 2.99 10^6/uL (4.5-5.90); Red Cell Distribution Width 15.5 % (11.8-14.3); White Blood Cell 10.9 10^3/uL (4.4-10.8)
[2022-12-03] MEDS ORDERED: PROPOFOL 10 MG/ML 20 ML IV ONE ×2 (12:23→13:46)
[2022-12-03] MEDS ORDERED: DexAMETHasone SOD PHOS 10MG/1ML VIAL INJ ONE (12:23)
[2022-12-03] MEDS ORDERED: SODIUM CHLORIDE LOCK 10 ML ONE (12:24)
[2022-12-03] MEDS ORDERED: ONDANSETRON HCL 4 MG/2 ML VIAL ONE (12:24)
[2022-12-03] MEDS ORDERED: KETOROLAC TROMETH 30 MG/ML 1ML VIAL ONE (12:24)
[2022-12-03] MEDS ORDERED: GLYCOPYRROLATE 0.2 MG/ML 1ML VIAL ONE (12:24)
[2022-12-03 12:30] LABS: BUN/Creatinine Ratio 13.9; Calcium 7.8 mg/dL (8.5-10.1); Potassium 3.9 mmol/L (3.5-5.1)
[2022-12-03 13:00] VITALS: BP 159/70
[2022-12-03] MEDS ORDERED: BUPIVACAINE HCL 0.25% P/F 10 ML VIAL ONE (13:30)
[2022-12-03] MEDS ORDERED: VANCOMYCIN HCL 1000 MG VL ONE (13:36)
[2022-12-03] MEDS: SODIUM CHLORIDE 0.9% 1,000 ML IV SCH (15:45)
[2022-12-03 16:50] VITALS: BP 143/69
[2022-12-03] MEDS: TAMSULOSIN HYDROCHLORIDE 0.4 MG CAP PO SCH (18:43)
[2022-12-03] MEDS: HYDROcodone-ACET 10/325MG TAB PO PRN (19:04)
[2022-12-03] MEDS: MONTELUKAST SODIUM 10 MG TAB PO SCH (21:28)
[2022-12-03 22:00] VITALS: BP 146/68
[2022-12-04] MEDS: SODIUM CHLORIDE 0.9% 1,000 ML IV SCH (01:45)
[2022-12-04] MEDS: MESALAMINE 400mg Delayed Release Cap PO SCH ×2 (02:54→14:00)
[2022-12-04 05:00] VITALS: BP 124/70
[2022-12-04] MEDS: ACCU-CHEK COMFORT CURVE STRIP VI SCH ×4 (05:56→22:00)
[2022-12-04] MEDS: InsuLIN REG 1unit/0.01ml Soln (100units/ml) SC SCH ×4 (05:56→22:00)
[2022-12-04 08:58] VITALS: BP 152/67
[2022-12-04] MEDS: CEFEPIME 2 GM in SODIUM CHL 0.9% 50 ML IV SCH (09:46)
[2022-12-04] MEDS: EPOETIN ALFA-EPBX 10,000 UNIT/1ML VIAL SC SCH (09:48)
[2022-12-04] MEDS: CARVEDILOL 3.125 MG TAB PO SCH ×2 (10:00→22:00)
[2022-12-04] MEDS: CLOPIDOGREL BISULFATE 75 MG TAB PO SCH (10:00)
[2022-12-04] MEDS: FERROUS SULFATE 325mg EC TAB PO SCH ×2 (10:00→22:00)
[2022-12-04] MEDS: PANTOPRAZOLE 40 MG TAB PO SCH (10:00)
[2022-12-04] MEDS: FOLIC ACID 1 MG TAB PO SCH (10:00)
[2022-12-04] MEDS: SODIUM FERR GLUC 62.5MG/5ML 125 MG in SODIUM CHL 0.9% 100 ML IV SCH (12:53)
[2022-12-04 13:00] VITALS: BP 147/64
[2022-12-04 14:54] LABS: BUN/Creatinine Ratio 15.8; Calcium 8.2 mg/dL (8.5-10.1); Potassium 3.7 mmol/L (3.5-5.1)
[2022-12-04 16:29] VITALS: BP 147/72
[2022-12-04 17:15] LABS: Basophils # (auto) 0.1 10 ^3/uL (0-0.2); Basophils % (auto) 0.3 % (0.0-2.0); Eosinophils # (auto) 0.1 10 ^3/uL (0-0.8); Eosinophils % (auto) 0.6 % (0.0-7.0); Hematocrit 24.8 % (41.0-53.0); Hemoglobin 8.1 g/dL (13.5-17.5); Lymphocytes # (auto) 0.9 10 ^3/uL (0.4-5.4); Mean Corpuscular Hemoglobin 31.2 pg (28.0-32.0); Mean Corpuscular Hgb Conc. 32.8 g/dL (32.0-36.0); Mean Corpuscular Volume 94.9 fL (80.0-100.0); Monocytes % (auto) 6.5 % (0.0-12.0); Neutrophils # (auto) 12.8 10 ^3/uL (1.6-8.6); Neutrophils % (auto) 86.6 % (37.0-80.0); Red Blood Cells 2.61 10^6/uL (4.5-5.90); Red Cell Distribution Width 15.7 % (11.8-14.3); White Blood Cell 14.8 10^3/uL (4.4-10.8)
[2022-12-04] MEDS ORDERED: LORazepam 2MG/ML-1ML VIAL IV ONE (17:15)
[2022-12-04] MEDS: TAMSULOSIN HYDROCHLORIDE 0.4 MG CAP PO SCH (18:00)
[2022-12-04] MEDS: SODIUM BICARBONATE 50ML VIAL 50 ML in SOD CHL 0.45% 1,000 ML IV SCH (18:20)
[2022-12-04 20:00] VITALS: BP 137/60
[2022-12-04 22:00] VITALS: BP 137/60
[2022-12-04] MEDS: MONTELUKAST SODIUM 10 MG TAB PO SCH (22:00)
[2022-12-05] MEDS: MESALAMINE 400mg Delayed Release Cap PO SCH ×3 (01:25→22:30)
[2022-12-05] MEDS: SODIUM BICARBONATE 50ML VIAL 50 ML in SOD CHL 0.45% 1,000 ML IV SCH ×2 (06:18→19:30)
[2022-12-05] MEDS: InsuLIN REG 1unit/0.01ml Soln (100units/ml) SC SCH ×4 (06:20→22:27)
[2022-12-05] MEDS: ACCU-CHEK COMFORT CURVE STRIP VI SCH ×4 (06:20→22:25)
[2022-12-05 08:30] VITALS: BP 156/69
[2022-12-05] MEDS: FERROUS SULFATE 325mg EC TAB PO SCH ×2 (09:37→22:23)
[2022-12-05] MEDS: CLOPIDOGREL BISULFATE 75 MG TAB PO SCH (09:37)
[2022-12-05] MEDS: PANTOPRAZOLE 40 MG TAB PO SCH (09:37)
[2022-12-05] MEDS: CEFEPIME 2 GM in SODIUM CHL 0.9% 50 ML IV SCH (09:37)
[2022-12-05] MEDS: FOLIC ACID 1 MG TAB PO SCH (09:37)
[2022-12-05] MEDS: CARVEDILOL 3.125 MG TAB PO SCH ×2 (09:39→22:23)
[2022-12-05] MEDS: SODIUM FERR GLUC 62.5MG/5ML 125 MG in SODIUM CHL 0.9% 100 ML IV SCH (12:00)
[2022-12-05 12:30] VITALS: BP 170/70
[2022-12-05] MEDS: hydrALAZINE HCL 20 MG/ML VL IV PRN ×2 (13:00→14:09)
[2022-12-05] MEDS ORDERED: DESMOPRESSIN ACET 4 MCG/1 ML AMPULE SUBCUT SCH (13:45)
[2022-12-05 16:30] VITALS: BP 125/62
[2022-12-05] MEDS: HYDROcodone-ACET 10/325MG TAB PO PRN ×2 (16:38→23:09)
[2022-12-05] MEDS: TAMSULOSIN HYDROCHLORIDE 0.4 MG CAP PO SCH (18:11)
[2022-12-05 22:00] VITALS: BP 122/52
[2022-12-05] MEDS: MONTELUKAST SODIUM 10 MG TAB PO SCH (22:24)
[2022-12-06] MEDS: HYDROcodone-ACET 10/325MG TAB PO PRN ×2 (03:59→09:28)
[2022-12-06 05:00] VITALS: BP 148/64
[2022-12-06] MEDS: InsuLIN REG 1unit/0.01ml Soln (100units/ml) SC SCH ×4 (06:35→22:00)
[2022-12-06] MEDS: ACCU-CHEK COMFORT CURVE STRIP VI SCH ×4 (06:35→22:00)
[2022-12-06 09:00] VITALS: BP 162/68
[2022-12-06] MEDS: FERROUS SULFATE 325mg EC TAB PO SCH (09:28)
[2022-12-06] MEDS: MESALAMINE 400mg Delayed Release Cap PO SCH ×2 (09:28→22:00)
[2022-12-06] MEDS: FOLIC ACID 1 MG TAB PO SCH (09:28)
[2022-12-06] MEDS: PANTOPRAZOLE 40 MG TAB PO SCH (09:28)
[2022-12-06] MEDS: CARVEDILOL 3.125 MG TAB PO SCH ×2 (09:29→22:00)
[2022-12-06] MEDS: CLOPIDOGREL BISULFATE 75 MG TAB PO SCH (09:29)
[2022-12-06] MEDS: CEFEPIME 2 GM in SODIUM CHL 0.9% 50 ML IV SCH (09:40)
[2022-12-06] MEDS ORDERED: LORazepam 2MG/ML-1ML VIAL IV PRN (11:45)
[2022-12-06] MEDS ORDERED: SODIUM CHLOR 0.9% PF (SALINE LOCK) 10ML VIAL/SYR IV ONE (11:45)
[2022-12-06] MEDS ORDERED: GABAPENTIN 300 MG CAP PO PRN (11:45)
[2022-12-06] MEDS: SODIUM FERR GLUC 62.5MG/5ML 125 MG in SODIUM CHL 0.9% 100 ML IV SCH (12:52)
[2022-12-06 13:00] VITALS: BP 155/66
[2022-12-06 13:51] LABS: Basophils # (auto) 0.1 10 ^3/uL (0-0.2); Basophils % (auto) 0.8 % (0.0-2.0); Eosinophils # (auto) 0.2 10 ^3/uL (0-0.8); Eosinophils % (auto) 2.4 % (0.0-7.0); Hematocrit 28.5 % (41.0-53.0); Hemoglobin 9.7 g/dL (13.5-17.5); Lymphocytes # (auto) 0.8 10 ^3/uL (0.4-5.4); Lymphocytes % (auto) 10.1 % (10.0-50.0); Mean Corpuscular Hemoglobin 31.9 pg (28.0-32.0); Mean Corpuscular Hgb Conc. 34.1 g/dL (32.0-36.0); Mean Corpuscular Volume 93.4 fL (80.0-100.0); Monocytes # (auto) 0.3 10 ^3/uL (0-1.3); Monocytes % (auto) 4.2 % (0.0-12.0); Neutrophils # (auto) 6.5 10 ^3/uL (1.6-8.6); Neutrophils % (auto) 82.5 % (37.0-80.0); Nucleated Red Blood Cells % 0.7 %; Red Blood Cells 3.06 10^6/uL (4.5-5.90); Red Cell Distribution Width 15.5 % (11.8-14.3); White Blood Cell 7.9 10^3/uL (4.4-10.8)
[2022-12-06 14:05] LABS: Calcium 7.6 mg/dL (8.5-10.1); Potassium 3.2 mmol/L (3.5-5.1)
[2022-12-06 14:07] LABS: BUN/Creatinine Ratio 14.8
[2022-12-06 14:10] LABS: Bilirubin, Total 0.4 mg/dL (0.2-1.0); Total Protein 5.7 g/dL (6.4-8.2)
[2022-12-06 17:00] VITALS: BP 149/63
[2022-12-06] MEDS: POTASSIUM EFFERVESENT TAB 25 MEQ GT ONE ×2 (20:09→20:30)
[2022-12-06] MEDS: TAMSULOSIN HYDROCHLORIDE 0.4 MG CAP PO SCH (20:09)
[2022-12-06 22:00] VITALS: BP 159/45
[2022-12-06] MEDS: MONTELUKAST SODIUM 10 MG TAB PO SCH (22:00)
[2022-12-07 05:00] VITALS: BP 133/73
[2022-12-07] MEDS: InsuLIN REG 1unit/0.01ml Soln (100units/ml) SC SCH ×4 (06:42→22:00)
[2022-12-07 06:43] LABS: Calcium 7.7 mg/dL (8.5-10.1); Potassium 3.1 mmol/L (3.5-5.1)
[2022-12-07 06:45] LABS: BUN/Creatinine Ratio 15.1
[2022-12-07] MEDS: ACCU-CHEK COMFORT CURVE STRIP VI SCH ×4 (06:46→22:34)
[2022-12-07 06:53] LABS: Basophils # (auto) 0.1 10 ^3/uL (0-0.2); Basophils % (auto) 0.8 % (0.0-2.0); Eosinophils # (auto) 0.2 10 ^3/uL (0-0.8); Eosinophils % (auto) 1.9 % (0.0-7.0); Hematocrit 24.5 % (41.0-53.0); Hemoglobin 8.2 g/dL (13.5-17.5); Lymphocytes # (auto) 1.1 10 ^3/uL (0.4-5.4); Lymphocytes % (auto) 8.8 % (10.0-50.0); Mean Corpuscular Hemoglobin 31.4 pg (28.0-32.0); Mean Corpuscular Hgb Conc. 33.3 g/dL (32.0-36.0); Mean Corpuscular Volume 94.1 fL (80.0-100.0); Monocytes # (auto) 1.1 10 ^3/uL (0-1.3); Monocytes % (auto) 8.8 % (0.0-12.0); Neutrophils # (auto) 9.7 10 ^3/uL (1.6-8.6); Neutrophils % (auto) 79.7 % (37.0-80.0); Nucleated Red Blood Cells % 0.2 %; Red Cell Distribution Width 15.4 % (11.8-14.3); White Blood Cell 12.2 10^3/uL (4.4-10.8)
[2022-12-07] MEDS: CEFEPIME 2 GM in SODIUM CHL 0.9% 50 ML IV SCH (08:41)
[2022-12-07] MEDS: EPOETIN ALFA-EPBX 10,000 UNIT/1ML VIAL SC SCH (08:41)
[2022-12-07] MEDS: MESALAMINE 400mg Delayed Release Cap PO SCH ×2 (08:41→22:43)
[2022-12-07] MEDS: CLOPIDOGREL BISULFATE 75 MG TAB PO SCH (08:42)
[2022-12-07] MEDS: CARVEDILOL 3.125 MG TAB PO SCH ×2 (08:42→22:42)
[2022-12-07] MEDS: FOLIC ACID 1 MG TAB PO SCH (08:42)
[2022-12-07] MEDS: PANTOPRAZOLE 40 MG TAB PO SCH (08:42)
[2022-12-07] MEDS: HYDROcodone-ACET 10/325MG TAB PO PRN ×3 (08:42→22:43)
[2022-12-07 09:00] VITALS: BP 156/66
[2022-12-07] MEDS ORDERED: POTASSIUM CHL 20 Meq TABLET PO ONE (10:30)
[2022-12-07] MEDS: Juven Fruit Punch Powder PACKET 28.8gm PO SCH (12:41)
[2022-12-07] MEDS: SODIUM FERR GLUC 62.5MG/5ML 125 MG in SODIUM CHL 0.9% 100 ML IV SCH (12:42)
[2022-12-07] MEDS: Pro-Stat SF 30ml Vanilla PO SCH (12:42)
[2022-12-07 12:53] LABS: INR 1.08 (0.9-1.15); Partial Thromboplastin Time 30.5 sec (24.6-33.4)
[2022-12-07 13:00] VITALS: BP 158/64
[2022-12-07] MEDS: TAMSULOSIN HYDROCHLORIDE 0.4 MG CAP PO SCH (16:58)
[2022-12-07 17:00] VITALS: BP 161/77
[2022-12-07 22:00] VITALS: BP 162/63
[2022-12-07] MEDS: MONTELUKAST SODIUM 10 MG TAB PO SCH (22:42)
[2022-12-08 05:00] VITALS: BP 141/57
[2022-12-08] MEDS: InsuLIN REG 1unit/0.01ml Soln (100units/ml) SC SCH ×4 (06:07→21:42)
[2022-12-08] MEDS: ACCU-CHEK COMFORT CURVE STRIP VI SCH ×4 (06:07→21:42)
[2022-12-08 08:00] VITALS: BP 123/82
[2022-12-08] MEDS: MESALAMINE 400mg Delayed Release Cap PO SCH ×2 (08:11→21:42)
[2022-12-08] MEDS: HYDROcodone-ACET 10/325MG TAB PO PRN ×2 (08:12→13:51)
[2022-12-08] MEDS: PANTOPRAZOLE 40 MG TAB PO SCH (08:12)
[2022-12-08] MEDS: FOLIC ACID 1 MG TAB PO SCH (08:12)
[2022-12-08] MEDS: CARVEDILOL 3.125 MG TAB PO SCH ×2 (08:13→21:41)
[2022-12-08] MEDS: CLOPIDOGREL BISULFATE 75 MG TAB PO SCH (08:13)
[2022-12-08 08:55] LABS: BUN/Creatinine Ratio 14.9; Calcium 7.2 mg/dL (8.5-10.1); Potassium 3.6 mmol/L (3.5-5.1)
[2022-12-08 09:02] VITALS: BP 123/82
[2022-12-08 09:06] LABS: Basophils # (auto) 0.1 10 ^3/uL (0-0.2); Eosinophils # (auto) 0.3 10 ^3/uL (0-0.8); Eosinophils % (auto) 2.3 % (0.0-7.0); Hematocrit 27.2 % (41.0-53.0); Hemoglobin 8.7 g/dL (13.5-17.5); Lymphocytes # (auto) 1.1 10 ^3/uL (0.4-5.4); Mean Corpuscular Hemoglobin 30.2 pg (28.0-32.0); Mean Corpuscular Volume 94.2 fL (80.0-100.0); Monocytes # (auto) 1.1 10 ^3/uL (0-1.3); Monocytes % (auto) 9.5 % (0.0-12.0); Neutrophils # (auto) 9.2 10 ^3/uL (1.6-8.6); Neutrophils % (auto) 78.2 % (37.0-80.0); Nucleated Red Blood Cells % 0.1 %; Red Blood Cells 2.88 10^6/uL (4.5-5.90); Red Cell Distribution Width 15.7 % (11.8-14.3); White Blood Cell 11.8 10^3/uL (4.4-10.8)
[2022-12-08] MEDS: CEFEPIME 2 GM in SODIUM CHL 0.9% 50 ML IV SCH (09:49)
[2022-12-08] MEDS: Juven Fruit Punch Powder PACKET 28.8gm PO SCH (09:57)
[2022-12-08] MEDS: Pro-Stat SF 30ml Vanilla PO SCH (09:58)
[2022-12-08] MEDS: SODIUM CHLORIDE 0.9% 1,000 ML IV SCH (10:57)
[2022-12-08] MEDS: SODIUM FERR GLUC 62.5MG/5ML 125 MG in SODIUM CHL 0.9% 100 ML IV SCH (13:37)
[2022-12-08 16:30] VITALS: BP 120/80
[2022-12-08] MEDS: TAMSULOSIN HYDROCHLORIDE 0.4 MG CAP PO SCH (17:38)
[2022-12-08] MEDS: MONTELUKAST SODIUM 10 MG TAB PO SCH (21:42)
[2022-12-09] MEDS: SODIUM CHLORIDE 0.9% 1,000 ML IV SCH ×3 (02:55→23:05)
[2022-12-09] MEDS: ACCU-CHEK COMFORT CURVE STRIP VI SCH ×4 (06:44→22:00)
[2022-12-09] MEDS: InsuLIN REG 1unit/0.01ml Soln (100units/ml) SC SCH ×4 (06:50→22:00)
[2022-12-09 09:00] VITALS: BP 180/74
[2022-12-09] MEDS: CEFEPIME 2 GM in SODIUM CHL 0.9% 50 ML IV SCH (09:15)
[2022-12-09] MEDS: CLOPIDOGREL BISULFATE 75 MG TAB PO SCH (09:16)
[2022-12-09] MEDS: FOLIC ACID 1 MG TAB PO SCH (09:16)
[2022-12-09] MEDS: MESALAMINE 400mg Delayed Release Cap PO SCH ×2 (09:16→22:00)
[2022-12-09] MEDS: PANTOPRAZOLE 40 MG TAB PO SCH (09:16)
[2022-12-09] MEDS: CARVEDILOL 3.125 MG TAB PO SCH ×2 (09:16→22:00)
[2022-12-09] MEDS: EPOETIN ALFA-EPBX 10,000 UNIT/1ML VIAL SC SCH (09:17)
[2022-12-09] MEDS: Juven Fruit Punch Powder PACKET 28.8gm PO SCH (09:17)
[2022-12-09] MEDS: Pro-Stat SF 30ml Vanilla PO SCH (09:17)
[2022-12-09 10:02] LABS: BUN/Creatinine Ratio 13.7; Calcium 8.1 mg/dL (8.5-10.1); Potassium 3.2 mmol/L (3.5-5.1)
[2022-12-09] MEDS ORDERED: POTASSIUM CHL 20 Meq TABLET PO ONE (10:45)
[2022-12-09] MEDS: SODIUM FERR GLUC 62.5MG/5ML 125 MG in SODIUM CHL 0.9% 100 ML IV SCH (11:55)
[2022-12-09] MEDS: hydrALAZINE HCL 20 MG/ML VL IV PRN (11:55)
[2022-12-09] MEDS ORDERED: HYDROcodone-ACET 10/325MG TAB PO PRN (12:45)
[2022-12-09 13:00] VITALS: BP 195/82
[2022-12-09 17:00] VITALS: BP 114/69
[2022-12-09] MEDS: TAMSULOSIN HYDROCHLORIDE 0.4 MG CAP PO SCH (18:14)
[2022-12-09] MEDS: MONTELUKAST SODIUM 10 MG TAB PO SCH (22:00)
[2022-12-10] MEDS: InsuLIN REG 1unit/0.01ml Soln (100units/ml) SC SCH ×4 (07:00→22:00)
[2022-12-10] MEDS: ACCU-CHEK COMFORT CURVE STRIP VI SCH ×4 (07:00→22:00)
[2022-12-10 09:00] VITALS: BP 167/80
[2022-12-10] MEDS: CEFEPIME 2 GM in SODIUM CHL 0.9% 50 ML IV SCH (09:49)
[2022-12-10] MEDS: MESALAMINE 400mg Delayed Release Cap PO SCH ×2 (09:50→22:00)
[2022-12-10] MEDS: PANTOPRAZOLE 40 MG TAB PO SCH (09:50)
[2022-12-10] MEDS: FOLIC ACID 1 MG TAB PO SCH (09:51)
[2022-12-10] MEDS: CARVEDILOL 3.125 MG TAB PO SCH ×2 (09:51→22:11)
[2022-12-10] MEDS: Juven Fruit Punch Powder PACKET 28.8gm PO SCH (10:00)
[2022-12-10] MEDS: Pro-Stat SF 30ml Vanilla PO SCH (10:00)
[2022-12-10] MEDS: SODIUM CHLORIDE 0.9% 1,000 ML IV SCH ×2 (12:25→22:12)
[2022-12-10 13:00] VITALS: BP 173/65
[2022-12-10] MEDS: SODIUM FERR GLUC 62.5MG/5ML 125 MG in SODIUM CHL 0.9% 100 ML IV SCH (14:15)
[2022-12-10 17:00] VITALS: BP 178/88
[2022-12-10] MEDS: TAMSULOSIN HYDROCHLORIDE 0.4 MG CAP PO SCH (17:37)
[2022-12-10 20:00] VITALS: BP 154/79
[2022-12-10 22:00] VITALS: BP 154/79
[2022-12-10] MEDS: MONTELUKAST SODIUM 10 MG TAB PO SCH (22:00)
[2022-12-11 05:00] VITALS: BP 170/71
[2022-12-11] MEDS: InsuLIN REG 1unit/0.01ml Soln (100units/ml) SC SCH ×4 (06:19→22:00)
[2022-12-11] MEDS: ACCU-CHEK COMFORT CURVE STRIP VI SCH ×4 (06:19→22:00)
[2022-12-11 09:00] VITALS: BP 184/66
[2022-12-11] MEDS: Pro-Stat SF 30ml Vanilla PO SCH (10:00)
[2022-12-11] MEDS: MESALAMINE 400mg Delayed Release Cap PO SCH ×2 (10:00→22:00)
[2022-12-11] MEDS: PANTOPRAZOLE 40 MG TAB PO SCH (10:00)
[2022-12-11] MEDS: Juven Fruit Punch Powder PACKET 28.8gm PO SCH (10:00)
[2022-12-11] MEDS: CARVEDILOL 3.125 MG TAB PO SCH ×2 (10:00→22:00)
[2022-12-11] MEDS: FOLIC ACID 1 MG TAB PO SCH (10:00)
[2022-12-11] MEDS: CEFEPIME 2 GM in SODIUM CHL 0.9% 50 ML IV SCH (10:14)
[2022-12-11] MEDS: EPOETIN ALFA-EPBX 10,000 UNIT/1ML VIAL SC SCH (10:16)
[2022-12-11] MEDS: hydrALAZINE HCL 20 MG/ML VL IV PRN (10:17)
[2022-12-11 13:00] VITALS: BP 130/89
[2022-12-11 13:55] LABS: Hematocrit 31.9 % (41.0-53.0); Hemoglobin 10.2 g/dL (13.5-17.5)
[2022-12-11] MEDS: D5W/SOD CHLO 0.9% 1,000 ML IV SCH (14:25)
[2022-12-11 14:37] LABS: Calcium 8.4 mg/dL (8.5-10.1)
[2022-12-11 14:47] LABS: Potassium 2.9 mmol/L (3.5-5.1)
[2022-12-11 16:08] VITALS: BP 161/80
[2022-12-11] MEDS: TAMSULOSIN HYDROCHLORIDE 0.4 MG CAP PO SCH (18:00)
[2022-12-11] MEDS: POTASSIUM CHL 20MEQ/100ML 100 ML IV SCH ×2 (18:13→19:29)
[2022-12-11] MEDS: MONTELUKAST SODIUM 10 MG TAB PO SCH (22:00)
[2022-12-12] VITALS (11 sets, daily range): BP systolic 133–185; BP diastolic 81–121
[2022-12-12] MEDS: D5W/SOD CHLO 0.9% 1,000 ML IV SCH (01:20)
[2022-12-12] MEDS: hydrALAZINE HCL 20 MG/ML VL IV PRN (04:40)
[2022-12-12] MEDS: ACCU-CHEK COMFORT CURVE STRIP VI SCH ×4 (05:52→23:03)
[2022-12-12] MEDS: InsuLIN REG 1unit/0.01ml Soln (100units/ml) SC SCH ×4 (05:52→23:08)
[2022-12-12] MEDS: CEFEPIME 2 GM in SODIUM CHL 0.9% 50 ML IV SCH (09:29)
[2022-12-12] MEDS: FOLIC ACID 1 MG TAB PO SCH (09:34)
[2022-12-12] MEDS: CARVEDILOL 3.125 MG TAB PO SCH (09:35)
[2022-12-12] MEDS: PANTOPRAZOLE 40 MG TAB PO SCH (09:40)
[2022-12-12] MEDS: Pro-Stat SF 30ml Vanilla PO SCH (09:40)
[2022-12-12] MEDS: MESALAMINE 400mg Delayed Release Cap PO SCH ×2 (09:40→22:00)
[2022-12-12] MEDS: Juven Fruit Punch Powder PACKET 28.8gm PO SCH (09:40)
[2022-12-12] MEDS ORDERED: LABETALOL HCL 5 MG/ML 4ML SYRINGE IV PRN (13:00)
[2022-12-12] MEDS ORDERED: LABETALOL HCL 5 MG/ML 4ML SYRINGE IV ONE (13:00)
[2022-12-12] MEDS ORDERED: cloNIDine 0.2 mg/24hr 7DAY PATCH TD ONE (13:00)
[2022-12-12] MEDS: TAMSULOSIN HYDROCHLORIDE 0.4 MG CAP PO SCH (17:31)
[2022-12-12] MEDS: LABETALOL HCL 5 MG/ML 4ML SYRINGE IV ONE ×2 (20:52→20:55)
[2022-12-12] MEDS ORDERED: ACETAMINOPHEN 650 MG RECT SUPP PR PRN (21:00)
[2022-12-12] MEDS: MONTELUKAST SODIUM 10 MG TAB PO SCH (22:00)
[2022-12-13 05:00] VITALS: BP 195/102
[2022-12-13] MEDS ORDERED: hydrALAZINE HCL 20 MG/ML VL IV PRN (05:30)
[2022-12-13] MEDS: ACCU-CHEK COMFORT CURVE STRIP VI SCH (06:17)
[2022-12-13] MEDS: InsuLIN REG 1unit/0.01ml Soln (100units/ml) SC SCH (06:18)
[2022-12-13] MEDS ORDERED: LABETALOL HCL 5 MG/ML 4ML SYRINGE IV ONE ×2 (07:45→11:00)
[2022-12-13 09:00] VITALS: BP 164/94
[2022-12-13] MEDS: Pro-Stat SF 30ml Vanilla PO SCH (10:00)
[2022-12-13] MEDS: PANTOPRAZOLE 40 MG TAB PO SCH (10:00)
[2022-12-13] MEDS: MESALAMINE 400mg Delayed Release Cap PO SCH (10:00)
[2022-12-13] MEDS: Juven Fruit Punch Powder PACKET 28.8gm PO SCH (10:00)
[2022-12-13] MEDS: FOLIC ACID 1 MG TAB PO SCH (10:00)
[2022-12-13] MEDS: CEFEPIME 2 GM in SODIUM CHL 0.9% 50 ML IV SCH (10:49)
[2022-12-13 11:31] VITALS: BP 164/94
== END 2022-12-13 11:59 | disposition hospice, home (50) | DRG 853 ==
LOC: ER 08:04 → TELE 13:14 → TELE-E-ADS 11-23 12:38 → TELE-WESTW 11-23 18:12
PROVIDERS: ADMIT Registered Nurse; ATTEND Internal Medicine
PROC: 30233N1 Transfusion of Nonautologous Red Blood Cells into Peripheral Vein, Percutaneous Approach (ICD-10-PCS; principal; 2022-11-22)
PROC: 0JBL0ZZ Excision of Right Upper Leg Subcutaneous Tissue and Fascia, Open Approach (ICD-10-PCS; 2022-12-03)
PROC: 05HB33Z Insertion of Infusion Device into Right Basilic Vein, Percutaneous Approach (ICD-10-PCS; 2022-12-07)
DX: A41.9 Sepsis, unspecified organism (principal); E43 Unspecified severe protein-calorie malnutrition; I21.A1 Myocardial infarction type 2; N17.0 Acute kidney failure with tubular necrosis; G92.8 Other toxic encephalopathy; T81.41XA Infection following a procedure, superficial incisional surgical site, initial encounter; I13.0 Hypertensive heart and chronic kidney disease with heart failure and stage 1 through stage 4 chronic kidney disease, or unspecified chronic kidney disease; I50.30 Unspecified diastolic (congestive) heart failure; E87.20 Acidosis, unspecified; M00.9 Pyogenic arthritis, unspecified; M96.840 Postprocedural hematoma of a musculoskeletal structure following a musculoskeletal system procedure; I95.9 Hypotension, unspecified; E78.5 Hyperlipidemia, unspecified; D50.0 Iron deficiency anemia secondary to blood loss (chronic); E11.22 Type 2 diabetes mellitus with diabetic chronic kidney disease; E11.42 Type 2 diabetes mellitus with diabetic polyneuropathy; E86.0 Dehydration; E88.09 Other disorders of plasma-protein metabolism, not elsewhere classified; F17.210 Nicotine dependence, cigarettes, uncomplicated; I25.10 Atherosclerotic heart disease of native coronary artery without angina pectoris; I48.0 Paroxysmal atrial fibrillation; L89.159 Pressure ulcer of sacral region, unspecified stage; N18.32 Chronic kidney disease, stage 3b; Z96.641 Presence of right artificial hip joint; Z20.822 Contact with and (suspected) exposure to COVID-19; N40.1 Benign prostatic hyperplasia with lower urinary tract symptoms; R33.8 Other retention of urine; B96.5 Pseudomonas (aeruginosa) (mallei) (pseudomallei) as the cause of diseases classified elsewhere; Y83.9 Surgical procedure, unspecified as the cause of abnormal reaction of the patient, or of later complication, without mention of misadventure at the time of the procedure; K21.9 Gastro-esophageal reflux disease without esophagitis; I08.0 Rheumatic disorders of both mitral and aortic valves; J44.9 Chronic obstructive pulmonary disease, unspecified; F41.9 Anxiety disorder, unspecified; Z86.73 Personal history of transient ischemic attack (TIA), and cerebral infarction without residual deficits; Z88.0 Allergy status to penicillin; Z87.11 Personal history of peptic ulcer disease; I25.2 Old myocardial infarction; Z88.5 Allergy status to narcotic agent; Z88.1 Allergy status to other antibiotic agents; Z88.8 Allergy status to other drugs, medicaments and biological substances; Z88.2 Allergy status to sulfonamides; Z91.048 Other nonmedicinal substance allergy status; Z95.1 Presence of aortocoronary bypass graft; Z90.49 Acquired absence of other specified parts of digestive tract; Z80.0 Family history of malignant neoplasm of digestive organs; Z83.3 Family history of diabetes mellitus; Z79.4 Long term (current) use of insulin; Z68.24 Body mass index [BMI] 24.0-24.9, adult; Y92.89 Other specified places as the place of occurrence of the external cause; Z91.199 Patient's noncompliance with other medical treatment and regimen due to unspecified reason
CPT/HCPCS: 36415; 70450; 70540; 70551; 71045; 73700; 76775; 80048; 80053; 80061; 80202; 81001; 82270; 82306; 82570; 82607; 82728; 82746; 82962; 83036; 83540; 83550; 83605; 83615; 83880; 83970; 84100; 84156; 84300; 84443; 84484; 85007; 85014; 85018; 85025; 85027; 85045; 85384; 85610; 85730; 86850; 86900; 86901; 86920; 87040; 87070; 87075; 87077; 87081; 87086; 87186; 87205; 87426; 92610; 93005; 93306; 93971; 96361; 96365; 96366; 96367; 96375; 97110; 97116; 97163; 97530; 99291; C9113; G0378; J1100; J1756; J1815; J1885; J2185; J2405; J2543; J2704; J3480; J3490